=== PATIENT | female | born 1950 | race Caucasian/White ===

== ENCOUNTER 2017-11-21 13:19 | Outpatient (CLI) | payer MEDICARE, BC, SELFPAY ==
[2017-11-21 15:49] LABS: PHA INR Fingerstick 2.6 (0.9-1.1)
== END 2017-11-21 15:52 | disposition home or self-care (01) ==
LOC: ACC 13:21
PROVIDERS: Family Provider Nurse Practitioner Family; PCP Nurse Practitioner Family; Visit Provider Nurse Practitioner Family
DX: Z79.01 Long term (current) use of anticoagulants (principal); Z51.81 Encounter for therapeutic drug level monitoring
CPT/HCPCS: 85610; 99211; G0463

== ENCOUNTER 2017-12-26 15:02 | Outpatient (CLI) | payer MEDICARE, BC, SELFPAY ==
[2017-12-26 16:16] LABS: PHA INR Fingerstick 2.7 (0.9-1.1)
== END 2017-12-26 16:19 | disposition home or self-care (01) ==
LOC: ACC 15:03
PROVIDERS: PCP Nurse Practitioner Family; Visit Provider Nurse Practitioner Family
DX: Z79.01 Long term (current) use of anticoagulants (principal); Z51.81 Encounter for therapeutic drug level monitoring; Z86.718 Personal history of other venous thrombosis and embolism
CPT/HCPCS: 85610; 99211; G0463

== ENCOUNTER 2018-02-13 13:14 | Outpatient (CLI) | payer MEDICARE, BC, SELFPAY ==
[2018-02-13 14:52] LABS: PHA INR Fingerstick 2.2 (0.9-1.1)
== END 2018-02-13 14:58 | disposition home or self-care (01) ==
LOC: ACC 13:15
PROVIDERS: Family Provider Nurse Practitioner Family; PCP Nurse Practitioner Family; Visit Provider Family Medicine
DX: Z79.01 Long term (current) use of anticoagulants (principal); Z51.81 Encounter for therapeutic drug level monitoring; Z86.718 Personal history of other venous thrombosis and embolism
CPT/HCPCS: 85610; 99211; G0463

== ENCOUNTER 2018-04-04 14:57 | Outpatient (CLI) | payer MEDICARE, BC, SELFPAY ==
[2018-04-04 16:05] LABS: PHA INR Fingerstick 1.9 (0.9-1.1)
== END 2018-04-04 16:07 | disposition home or self-care (01) ==
LOC: ACC 14:58
PROVIDERS: PCP Nurse Practitioner Family; Visit Provider Family Medicine
DX: Z79.01 Long term (current) use of anticoagulants (principal); Z51.81 Encounter for therapeutic drug level monitoring; Z86.718 Personal history of other venous thrombosis and embolism
CPT/HCPCS: 85610; 99211; G0463

== ENCOUNTER 2018-05-08 13:06 | Outpatient (CLI) | payer MEDICARE, BC, SELFPAY ==
[2018-05-08 14:48] LABS: PHA INR Fingerstick 1.8 (0.9-1.1)
== END 2018-05-08 15:44 | disposition home or self-care (01) ==
LOC: ACC 13:08
PROVIDERS: Family Provider Nurse Practitioner Family; PCP Nurse Practitioner Family; Visit Provider Family Medicine
DX: Z79.01 Long term (current) use of anticoagulants (principal); Z51.81 Encounter for therapeutic drug level monitoring; Z86.718 Personal history of other venous thrombosis and embolism
CPT/HCPCS: 85610; 99211; G0463

== ENCOUNTER 2018-06-05 13:12 | Outpatient (CLI) | payer MEDICARE, BC, SELFPAY ==
[2018-06-05 14:12] LABS: PHA INR Fingerstick 1.2 (0.9-1.1)
== END 2018-06-05 14:19 | disposition home or self-care (01) ==
LOC: ACC 13:13
PROVIDERS: PCP Family Medicine; Visit Provider Family Medicine
DX: Z79.01 Long term (current) use of anticoagulants (principal); Z86.718 Personal history of other venous thrombosis and embolism
CPT/HCPCS: 85610; 99211; G0463

== ENCOUNTER 2018-07-18 14:04 | Outpatient (CLI) | payer MEDICARE, BC, SELFPAY ==
[2018-07-18 15:51] LABS: PHA INR Fingerstick 3.3 (0.9-1.1)
== END 2018-07-18 15:53 | disposition home or self-care (01) ==
LOC: ACC 14:05
PROVIDERS: PCP Nurse Practitioner Family; Visit Provider Nurse Practitioner Family
DX: Z51.81 Encounter for therapeutic drug level monitoring (principal); Z79.01 Long term (current) use of anticoagulants; Z86.718 Personal history of other venous thrombosis and embolism
CPT/HCPCS: 85610; 99211; G0463

== ENCOUNTER 2018-08-31 12:10 | Outpatient (CLI) | payer MEDICARE, BC, SELFPAY ==
[2018-08-31 13:05] LABS: PHA INR Fingerstick 2.4 (0.9-1.1)
== END 2018-08-31 13:06 | disposition home or self-care (01) ==
PROVIDERS: PCP Nurse Practitioner Family; Visit Provider Nurse Practitioner Family
DX: Z51.81 Encounter for therapeutic drug level monitoring (principal); Z79.01 Long term (current) use of anticoagulants; Z86.718 Personal history of other venous thrombosis and embolism
CPT/HCPCS: 85610; 99211; G0463

== ENCOUNTER → 2018-09-05 12:41 | Outpatient (CLI) | payer MEDICARE, BC, SELFPAY ==
--- NOTE | 2018-09-05 12:46 | US_ITS ---
US Arterial Ankle Brachial Ind History: Decreased pulses, claudication, current smoker ITS.REASON: Skin Changes ORDERING PHYSICIAN: Amber Wolfe DPM PATIENT AGE: 67 years TECHNIQUE: Segmental pressures obtained of both right and left leg. These are compared to brachial blood pressure to yield index at each level sampled including summary NOVA. The data sheets from the procedure are available in PACS FINDINGS Rest study only performed today No prior studies available for comparison. Blood pressures reported are in millimeters mercury. RIGHT LEG NOVA = 1.1. RIGHT LEG TBI=.8 Brachial BP: 139 Thigh BP: 160 Calf BP: 168 Ankle PT: 167 Ankle DP : 161 Digit =117 LEFT LEG NOVA = 1.1 LEFT LEG TBI= .8 Brachial BPD: 147 Thigh BP: 161 Calf BP: 166 Ankle PT:162 Ankle DP: 178 Digit = 111 Pulses and waveforms: Diminished pulses with normal waveforms IMPRESSION: The ABIs as reported above are within normal limits. Waveforms are unremarkable. Pulses are somewhat
--- NOTE | 2018-09-05 13:23 | XR_ITS ---
XR chest 2V HISTORY: ITS.REASON: cough ORDERING PHYSICIAN: Amber Wolfe DPM PATIENT AGE: 67 years COMPARISON: None FINDINGS: The cardiomediastinal silhouette and pulmonary vascularity are within normal limits. The lungs are clear without infiltrates, suspicious nodules, or pleural effusions. No acute bony abnormalities. Mild degenerative changes are present in the mid to upper thoracic spine IMPRESSION: No acute finding
== END ==
PROVIDERS: PCP Nurse Practitioner Family; Visit Provider Podiatrist
DX: R09.89 Other specified symptoms and signs involving the circulatory and respiratory systems (principal); F17.200 Nicotine dependence, unspecified, uncomplicated
CPT/HCPCS: 71046; 93922

== ENCOUNTER → 2018-10-23 13:23 | Outpatient (CLI) | payer MEDICARE, SELFPAY | PROVIDERS: PCP Nurse Practitioner Family; Visit Provider Nurse Practitioner Family | DX: Z51.81 Encounter for therapeutic drug level monitoring (principal); Z79.01 Long term (current) use of anticoagulants; Z86.718 Personal history of other venous thrombosis and embolism | CPT/HCPCS: 85610 ==

== ENCOUNTER 2018-11-28 12:33 | Outpatient (CLI) | payer MEDICARE, SELFPAY ==
[2018-11-28 16:00] LABS: PHA INR Fingerstick 2.4 (0.9-1.1)
== END 2018-11-28 16:05 | disposition home or self-care (01) ==
LOC: ACC 12:34
PROVIDERS: PCP Nurse Practitioner Family; Visit Provider Nurse Practitioner Family
DX: Z51.81 Encounter for therapeutic drug level monitoring (principal); Z79.01 Long term (current) use of anticoagulants; Z86.718 Personal history of other venous thrombosis and embolism
CPT/HCPCS: 85610; 99211; G0463

== ENCOUNTER 2019-01-04 10:30 | Outpatient (RCR) | payer MEDICARE, SELFPAY ==
--- NOTE | 2018-12-21 14:01 | HMH.PTOPEV ---
PT Outpatient Evaluation Rehab PT Outpatient Evaluation Start: 12/21/18 13:49 Freq: Status: Active Protocol: Document 12/21/18 13:49 ALVIN (Rec: 12/21/18 14:00 PHORJARRED [id number]) Electronically Signed By Elio Friend, PT 12/21/18 13:49 Outpatient Therapy Subjective History Subjective History Pt is 68 yowf who presents with right LE edema, stiffness , and tenderness x ~ 6 wks S/P right ankle sprain. Pt reports she was getting out of a chair when she fell and sprained the right ankle. She was seen in the ED with no fxs noted. She also reports she has had edema in tayo LE x 10 yrs or more which has caused her problems over time. She reports tendernes on tayo lower legs, but no pain currently. She reports PMH of HTN, DM-II, HL, anxiety, depression, essential tremors. Chief Complaint Pain Stiff Swelling Weakness Symptom Type Ache Symptoms Relieved By Rest/Positioning Symptoms Aggravated By Standing Physical Activity Walking Prior Functional Limitations None Current Functional Limitations Standing Walking Symptom Description Intermittent Activity Dependent Level of pain today (0-10) 0 Pain scale - at its worst (0-10) 10 Ankle/Foot Eval Gait Observation General Gait Pattern Observation Antalgic Gait Palpation Tenderness right ATF TTP positive PTF TTP negative CF TTP positive ROM Ankle/Foot ROM Limitations Soft Tissue Tightness MMT Ankle Dorsiflexion Strength Grade 4 Good Ankle Plantarflexion Strength Grade 4 Good Foot Eversion Strength Grade 4 Good Foot Inversion Strength Grade 4 Good Outpatient Therapy Assessment Impairments Problems/Impairmments Palpation Tenderness Impaired Range of Motion Impaired Strength Impaired Endurance Impaired Gait Pattern Impaired Walking Impaired Recreational A
== END 2019-01-04 10:35 | disposition home or self-care (01) ==
LOC: PT 10:30
PROVIDERS: Visit Provider Podiatrist
DX: I89.0 Lymphedema, not elsewhere classified (principal); S93.491A Sprain of other ligament of right ankle, initial encounter
CPT/HCPCS: 97110; 97112; 97140; 97163

== ENCOUNTER 2019-01-31 13:20 | Outpatient (CLI) | payer MEDICARE, SELFPAY ==
[2019-01-31 15:12] LABS: PHA INR Fingerstick 1.9 (0.9-1.1)
== END 2019-01-31 15:52 | disposition home or self-care (01) ==
LOC: ACC 13:21
PROVIDERS: PCP Nurse Practitioner Family; Visit Provider Nurse Practitioner Family
DX: Z51.81 Encounter for therapeutic drug level monitoring (principal); Z79.01 Long term (current) use of anticoagulants
CPT/HCPCS: 85610; 99211; G0463

== ENCOUNTER → 2019-02-06 12:09 | Outpatient (CLI) | payer MEDICARE, SELFPAY ==
[2019-02-06 13:20] LABS: PHA INR Fingerstick 2.3 (0.9-1.1)
--- NOTE | 2019-02-06 14:30 | NVE_ITS ---
Venous Exam Indications: 782.3 Edema. IMPRESSIONS 1. There is no evidence of significant Reflux. 2. No evidence of deep or superficial vein thrombosis involving the right lower extremity 3. No evidence of deep or superficial vein thrombosis involving the left lower extremity Complete lower extremity venous duplex evaluation. Doppler flow study including spectral analysis, color and kidd scale imaging. Location: Vascular laboratory. Patient status: Outpatient. CRITICAL FINDINGS - Reported to: Lori - Read back and verified. - 02/06/19 - 1500 - None Tables: Venous flow and imaging: + +-------+ + Location Overall Flow properties + +-------+ + Right common femoral Patent Normal phasicity; spontaneous; normal augmentation; compressible + +-------+ + Right saphenofemoral junction Patent Compressible + +-------+ + Right profunda femoral Patent Compressible + +-------+ + Right femoral Patent Normal phasicity; spontaneous; normal augmentation; compressible; no reflux + +-------+ + Right greater saphenous Patent Normal phasicity; spontaneous; normal augmentation; compressible + +-------+ + Right popliteal Patent Normal phasicity; spontaneous; normal augmentation; compressible + +-------+ + Right posterior tibial Patent Compressible + +-------+ + Right peroneal Patent Compressible + +-------+ + Right gastrocnemius Patent Compressible + +-------+ + Right soleal Patent Compressible + +-------+ + Left common femoral Patent Normal phasicity; spontaneous; normal augmentation; compressible + +-------+ + Left saphenofemoral junction Patent Compressible + +-------+ + Left profunda femoral Patent Compressible + +-------+ + Left femoral Patent Normal phasicity; spontaneous; normal augmentation; compressible + +-------+ + Left greater saphenous Patent Normal phasicity; spontaneous; normal augmentation; compressible +-------
== END ==
PROVIDERS: PCP Nurse Practitioner Family; Visit Provider Nurse Practitioner Family
DX: Z51.81 Encounter for therapeutic drug level monitoring (principal); Z79.01 Long term (current) use of anticoagulants; R60.1 Generalized edema
CPT/HCPCS: 85610; 93970; 99211; G0463

== ENCOUNTER 2019-03-06 12:52 | Outpatient (CLI) | payer MEDICARE, SELFPAY ==
[2019-03-06 15:19] LABS: PHA INR Fingerstick 1.7 (0.9-1.1)
== END 2019-03-06 15:21 | disposition home or self-care (01) ==
PROVIDERS: PCP Nurse Practitioner Family; Visit Provider Nurse Practitioner Family
DX: Z51.81 Encounter for therapeutic drug level monitoring (principal); Z79.01 Long term (current) use of anticoagulants; Z86.718 Personal history of other venous thrombosis and embolism
CPT/HCPCS: 85610; 99211; G0463

== ENCOUNTER 2019-03-27 13:05 | Outpatient (CLI) | payer MEDICARE, SELFPAY | END 2019-03-27 14:37 | disposition home or self-care (01) | LOC: ACC 13:06 | PROVIDERS: PCP Nurse Practitioner Family; Visit Provider Nurse Practitioner Family | DX: Z51.81 Encounter for therapeutic drug level monitoring (principal); Z79.01 Long term (current) use of anticoagulants; Z86.718 Personal history of other venous thrombosis and embolism | CPT/HCPCS: 85610; 99211; G0463 ==

== ENCOUNTER 2019-04-24 13:03 | Outpatient (CLI) | payer MEDICARE, SELFPAY ==
[2019-04-24 13:37] LABS: PHA INR Fingerstick 2.2 (0.9-1.1)
== END 2019-04-24 13:39 | disposition home or self-care (01) ==
LOC: ACC 13:04
PROVIDERS: PCP Nurse Practitioner Family; Visit Provider Nurse Practitioner Family
DX: Z51.81 Encounter for therapeutic drug level monitoring (principal); Z79.01 Long term (current) use of anticoagulants
CPT/HCPCS: 85610; 99211; G0463

== ENCOUNTER 2019-06-06 13:03 | Outpatient (CLI) | payer MEDICARE, SELFPAY ==
[2019-06-06 16:30] LABS: PHA INR Fingerstick 2.9 (0.9-1.1)
== END 2019-06-06 16:37 | disposition home or self-care (01) ==
LOC: ACC 13:04
PROVIDERS: PCP Nurse Practitioner Family; Visit Provider Nurse Practitioner Family
DX: Z51.81 Encounter for therapeutic drug level monitoring (principal); Z79.01 Long term (current) use of anticoagulants; Z86.718 Personal history of other venous thrombosis and embolism
CPT/HCPCS: 85610; 99211; G0463

== ENCOUNTER → 2019-08-20 13:30 | Outpatient (CLI) | payer MEDICARE, SELFPAY ==
--- NOTE | 2019-08-20 13:38 | XR_ITS ---
PROCEDURE: XR KNEE RT 3V CLINICAL INDICATION: RT KNEE PAIN COMPARISON: No exams were available for comparison FINDINGS: No fracture or dislocation. No lytic or blastic change. There is normal mineralization. There are mild osteoarthritic changes involving all 3 compartments. Other findings:None. IMPRESSION: Mild osteoarthritis Dictated by: Terry Moreno MD 08/20/2019 15:15 Electronically signed by Terry Moreno MD in [place] 08/20/2019 15:15
== END ==
PROVIDERS: PCP Nurse Practitioner Family; Visit Provider Nurse Practitioner Family
DX: M25.561 Pain in right knee (principal)
CPT/HCPCS: 73562

== ENCOUNTER → 2019-09-25 08:32 | Outpatient (CLI) | payer MEDICARE, SELFPAY ==
[2019-09-25 10:52] LABS: Glucose,Fasting 111 mg/dL (60-105)
== END ==
PROVIDERS: Visit Provider Nurse Practitioner Family
DX: E11.40 Type 2 diabetes mellitus with diabetic neuropathy, unspecified (principal)
CPT/HCPCS: 36415; 82947

== ENCOUNTER 2019-10-30 14:27 | Outpatient (CLI) | payer MEDICARE, SELFPAY ==
[2019-10-30 15:34] LABS: PHA INR Fingerstick 3.3 (0.9-1.1)
--- NOTE | 2020-02-01 10:38 | HMH.PHAINT ---
ACC-PATIENT CURRENTLY TAKING WARFARIN 9 MG ON TUE/TUE/TUE/TUE/TUE; 8 MG ON TUE/TUE.
--- NOTE | 2020-02-05 09:46 | HMH.PHAINT ---
ACC-PATIENT INR WAS 2.0 ON 02/04/20. CALLED IN SCRIPT FOR WARFARIN 3 MG, TAKE 3 TABLETS ON TUE/TUE/TUE/LEWIS/SAT, #60 W/ 2 RF TO [facility]INIC PHARMACY. SHE IS ALSO TAKING WARFARIN 4 MG, TAKE 2 TABLETS BY MOUTH ON MON/FRI.
--- NOTE | 2020-04-03 14:52 | HMH.PHAINT ---
ACC-CALLED IN REFILL ON 04/03/20 FOR WARFARIN 3 MG - 9 MG DAILY OR DIRECTED AND WARFARIN 2 MG DAILY OR DIRECTED.
== END 2019-10-30 15:39 | disposition home or self-care (01) ==
LOC: ACC 14:28
PROVIDERS: PCP Nurse Practitioner Family; Visit Provider Nurse Practitioner Family
DX: Z51.81 Encounter for therapeutic drug level monitoring (principal); Z79.01 Long term (current) use of anticoagulants
CPT/HCPCS: 85610; 99211; G0463

== ENCOUNTER → 2020-02-12 07:37 | Outpatient (CLI) | payer MEDICARE, SELFPAY ==
--- NOTE | 2020-02-12 07:44 | US_ITS ---
PROCEDURE: US LIVER CLINICAL INDICATION: ELEVATED ALKALINE PHOSPHATASE COMPARISON: No exams were available for comparison FINDINGS: PANCREAS: Unremarkable. No obvious mass or abnormal fluid collection. No ductal dilatation LIVER: No focal liver lesions demonstrated. Homogeneous echogenicity. No intrahepatic biliary ductal dilatation evident. There is appropriate direction of blood flow within a non dilated portal vein. There is a small nonspecific hyperechoic focus in the liver superiorly only well demonstrated on the transverse image RIGHT KIDNEY: Unremarkable. Normal size and echogenicity. No hydronephrosis. There is mild cortical thinning of the right kidney GALLBLADDER: Prior cholecystectomy. Common bile duct is normal at 5 mm. IMPRESSION: Prior cholecystectomy with other nonspecific nonacute findings as described above. Nonspecific small hyperechoic focus of the liver of questionable clinical significance. Liver is otherwise unremarkable. Dictated by: Terry Moreno MD 02/12/2020 15:31 Electronically signed by Terry Moreon MD in [place] 02/12/2020 15:31
== END ==
PROVIDERS: PCP Nurse Practitioner Family; Visit Provider Nurse Practitioner Family
DX: R74.8 Abnormal levels of other serum enzymes (principal)
CPT/HCPCS: 76705

== ENCOUNTER → 2020-02-27 08:38 | Outpatient (CLI) | payer MEDICARE, SELFPAY ==
--- NOTE | 2020-02-27 09:05 | CT_ITS ---
PROCEDURE: CT ABDOMEN W CON CLINICAL HISTORY: ELEVATED ALKALINE PHOSPHATASE LEVEL,ABN LIVER ULTRASOUND Elevated liver function test, right upper quadrant pain, liver lesion noted on ultrasound COMPARISON: US LIVER from 02/12/2020 TECHNIQUE: 75 mL Optiray 350 IV with dynamic imaging Axial images obtained with sagittal and coronal reformats. All CT scans at the facility use one or more dose reduction, viz: automated exposure control, ma/kV adjustment per patient size (including targeted exams where dose is matched to indication, i.e. head), or iterative reconstruction technique. FINDINGS: Fibrotic changes are present in the lung bases. There is calcified granuloma in the right lower lobe and within the lingula. There are coronary artery calcifications noted. There are post cholecystectomy changes. There is a small calcific density in the right lobe of the liver anteriorly. No focal liver lesion is evident. The spleen, adrenal glands, and pancreas have an unremarkable appearance. There is some mild biliary ectasia which may be related to the physiologic changes after cholecystectomy. No renal or ureteral calculi. No hydronephrosis or renal mass. There is some mild cortical thinning of the right kidney. The bowel gas pattern is nonspecific with fluid-filled loops of large and small bowel. There is nonspecific stranding of the perinephric renal fat. Surgical clips are present in the right lower quadrant. There is mild lumbar scoliosis convex right IMPRESSION: 1. No acute abdominal findings. 2. No suspicious liver lesions evident. The small area of increased echogenicity on the ultrasound may be related to a small calcified granuloma within the liver Dictated by: Terry Moreno MD 02/28/2020 15:20 Electronically signed by Terry Moreno MD in [place] 02/28/2020 15:20
[2020-02-27 09:07] LABS: Blood Urea Nitrogen 27 mg/dl (7-17); Estimated Glomerular Filt Rate 62 ml/min (>60); GFR (African American) 75 ML/MIN (>60)
== END ==
PROVIDERS: PCP Nurse Practitioner Family; Visit Provider Nurse Practitioner Family
DX: R93.2 Abnormal findings on diagnostic imaging of liver and biliary tract (principal); R74.8 Abnormal levels of other serum enzymes
CPT/HCPCS: 36415; 74160; 82565; 84520; Q9967

== ENCOUNTER → 2020-05-08 09:41 | Outpatient (CLI) | payer MEDICARE, SELFPAY ==
[2020-05-08 11:29] LABS: Coronavirus 19 IgG Antibody Negative (Negative); Coronavirus 19 IgM Antibody Negative (Negative)
== END ==
PROVIDERS: Visit Provider Internal Medicine Gastroenterology
DX: Z01.818 Encounter for other preprocedural examination (principal); Z12.11 Encounter for screening for malignant neoplasm of colon
CPT/HCPCS: 36415; 86328

== ENCOUNTER 2020-05-09 09:11 | Day surgery (SDC) | payer MEDICARE, SELFPAY ==
[2020-05-01 11:54] VITALS: BMI 30.2
[2020-05-09] VITALS (8 sets, daily range): BP systolic 94–125; BP diastolic 59–72; PULSE 82–92; RESP 16–18; TEMP 36.2; O2SAT 97–99
[2020-05-09 10:27] LABS: POC Glucose,Bedside 126 (70-110)
--- NOTE | 2020-05-09 11:19 | P.PN_ITS ---
[facility] Anesthesia Checklist - Patient Identification Patient Identification: Arm Band - Structural Data Admitted From: Home Planned Operative Procedure/s: colonoscopy Consent for Planned Operative Procedure(s) Verified: Yes Verified Documents: Surgical Consent, History and Physical - NPO Status Verified Time NPO: 00:00 - Additional verifications Anesthesia Reactions: No - Airway Assessment C-Spine Mobility Assessed: Yes (mp2) TMJ Mobility Assessed: Yes Dentition: Poor Dentition - Neurological Assessment Level of Consciousness: Awake, Alert - Anesthesia Plan Anesthesia Risk discussed: Yes Anesthesia Plan: Verified ASA Class: III Anesthesia Type: MAC [facility] History I have reviewed the patient's past medical history: Yes Medical History: Reports:: Anxiety, Atrial Fibrillation, Deep Vein Thrombosis, Depression, Diabetes Mellitus Type 2, Gastroesophageal Reflux Disease(GERD), Hyperlipidemia, Hypertension, Osteoporosis Denies:: Cancer, Diabetes Mellitus Type 1, Internal Pacemaker, MRSA, Seizures *Have you ever received a pneumonia vaccine?: Yes *Have you received a flu vaccine this season?: No Other Medical History: Reports: Osteoporosis, Other (tacchycardia, central tremors) Anesthesia experience/problems:: nac Laterality Cases: Left: Other Other Surgeries: Yes: Appendectomy, Cholecystectomy, Tubal Ligation, Other. No: Pacemaker Amputation: No Fractures: No - *Social History Last grade of school completed: Some college Smoking Status: Current every day smoker Tobacco Type: cigarettes # Packs/Day (cigarettes): 2 Alcohol Intake: current Alcohol Intake Frequency:: holidays/special occasions only Substance Use Type: denies use *Occupational Status:: retired Housing: house Household Members: spouse, family *Travel in the last 8 weeks: None - Psychiatric History Pschychiatric History:: Reports:: Anxiety, Depression Family Hx:: Cancer
--- NOTE | 2020-05-09 11:46 | P.PCN_ITS ---
[facility] Procedure Note Procedure Note:: Colonoscopy Procedure Report: Colonoscopy with cold snare polypectomy and cold biopsies Endoscopist: Mikael Camara II, MD Referring physician: NAVARRO Cristina Date of Procedure: May 09, 2020 Equipment: Olympus 180 variable stiffness pediatric colonoscope Sedation: MAC sedation Indication: Mrs. Stacy is a 69-year-old female who is here for follow-up screening/surveillance colonoscopy. She does state that she was having some chronic diarrhea with associated crampy discomfort up until 2 or 3 weeks ago. The patient does state that this has resolved. She reports no rectal bleeding, abdominal pain or weight loss. Her first cousin had colon cancer but she reports no other family history of colitis, Crohn's disease or colon cancer. Her last colonoscopy was at age 53 (16 years ago) and was normal. Procedure: Prior to the procedure, a history and physical exam was performed, and patient's medications and allergies were reviewed. The risks, benefits and alternatives of the sedation and procedure were discussed with the patient. All questions were answered and informed consent was obtained. The patient was brought to the procedure room. Patient identification and proposed procedure were verified by the physician and the nurse. The patient was placed in a left lateral decubitus position and the scope was passed under direct vision. Throughout the procedure, the patient's blood pressure, pulse, and oxygen saturations were monitored continuously. The colonoscopy was accomplished without difficulty. The patient tolerated the procedure well. Findings: On digital rectal examination there was normal rectal tone. There were no external hemorrhoids. The colonoscope was introduced through the anal canal to the rectum and advanced to the cecum. The ileocecal valve and appendiceal orifice were identified. The scope was advanced a short distance into the ileum which appeared grossly normal. The scope was then withdrawn into the colon. There were 5 diminutive polyps (cecum x2 (3 and 4 mm), sigmoid x1 (4 mm) and rectosigmoid x2 (3 and 4 mm)) which were removed via cold snare polypectomy. Random biopsies were taken from the right colon to rule out microscopic colitis with cold biopsy forceps. The remainder of the colon was normal. There were no other mucosal abnormalities identified. Upon retroflexion within the rectum there were grade 1 internal hemorrhoids.The preparation was excellent throughout with Pinson Preparation Score of 9. The cecal time was 12 minutes. Impression: 1. Diminutive colonic polyps x5 2. Grade 1 internal hemorrhoids Plan: I will follow-up the polyp histology and recommend repeat screening/surveillance colonoscopy again in 5 to 7 years based upon the pathology. I would encourage bulk fiber supplementation. I will follow-up the biopsies to rule out collagenous or microscopic colitis.
[2020-05-09 13:05] LABS: POC Glucose,Bedside 113 (70-110)
== END 2020-05-09 12:50 | disposition home or self-care (01) ==
LOC: OUTP 09:12
PROVIDERS: PCP Nurse Practitioner Family; Visit Provider Internal Medicine Gastroenterology
PROC: 0DJD8ZZ Inspection of Lower Intestinal Tract, Via Natural or Artificial Opening Endoscopic (ICD-10-PCS; CPT 45378; principal; 2020-05-09 10:30)
DX: Z12.11 Encounter for screening for malignant neoplasm of colon (principal); K63.5 Polyp of colon; K64.0 First degree hemorrhoids; F41.9 Anxiety disorder, unspecified; I48.91 Unspecified atrial fibrillation; I73.9 Peripheral vascular disease, unspecified; F32.9 Major depressive disorder, single episode, unspecified; E11.9 Type 2 diabetes mellitus without complications; K21.9 Gastro-esophageal reflux disease without esophagitis; E78.5 Hyperlipidemia, unspecified; I10 Essential (primary) hypertension; M81.0 Age-related osteoporosis without current pathological fracture
CPT/HCPCS: 45385; 82962; 88305

== ENCOUNTER 2020-06-17 17:03 | Emergency (ER) | payer MEDICARE, SELFPAY ==
--- NOTE | 2020-06-17 17:11 | XR_ITS ---
PROCEDURE: XR WRIST LT MIN 3V CLINICAL INDICATION: ulnar pain after fall COMPARISON: No exams were available for comparison FINDINGS: No fracture or dislocation. No lytic or blastic change. There is normal mineralization. The joint spaces are well-preserved. No significant degenerative/arthritic changes. No erosive changes evident. Other findings:None. IMPRESSION: No acute findings. Dictated by: Terry Moreno MD 06/17/2020 22:02 Terry Moreno MD in [place] 06/17/2020 22:02
[2020-06-17 17:12] VITALS: BP 147/85; PULSE 92; RESP 18; TEMP 36.8; O2SAT 99; BMI 32.8
--- NOTE | 2020-06-17 17:19 | PC.NURSE ---
Pt to rad.
--- NOTE | 2020-06-17 17:43 | HMH.EDGENADL ---
ED Disposition Clinical Impression: Left wrist sprain Qualifiers: Encounter type: initial encounter Qualified Code(s): S63.502A - Unspecified sprain of left wrist, initial encounter Fall Qualifiers: Encounter type: initial encounter Qualified Code(s): W19.XXXA - Unspecified fall, initial encounter Disposition: Home, Self-Care Condition on Discharge: Good Instructions: DI for Wrist Sprain Referrals: Gwen Miller APRN [Primary Care Provider] - 3 days - Critical Care Critical Care Time: No Attestation: On 06/17/20, the high probability of a clinically significant, sudden or life threatening deterioration of the following system(s) required my full and direct attention, intervention and personal management. The time I documented below is in addition to time spent performing reported procedures but includes the following listed in this critical care notation. Medical Decision Making - Medical Records Medical records reviewed: Yes: I reviewed the patient's medical records. - Papi Inquiry Pt receiving controlled substance: No Vital Signs: 06/17/20 17:12 Temperature 98.2 F Temperature Source Oral Pulse Rate [Right Brachial] 92 H Respiratory Rate 18 Blood Pressure [Right Arm] 147/85 H Blood Pressure Mean [Right Arm] 105 Blood Pressure Source [Right Arm] Automatic Cuff Blood Pressure Position [Right Arm] Sitting 02 Sat by Pulse Oximetry 99 Oxygen Delivery Method Room Air Orders (Tests/Meds): ORDERS Category Date Time Status Wrist XR left minimum 3 views [XR wrist LT min 3V] Stat Exams 06/17/20 17:11 Taken - Radiology Data #1 Image(s): Wrist Image Reviewed: Yes I reviewed the patient's radiology image Preliminary Findings: No Fracture Seen Medical Decision Narrative: Patient with mechanical fall while trying to open her window. She did not hit her head and cervical spine is cleared via Nexus criteria. Left wrist x-ray with no acute fracture or dislocation. Recommended conservative therapy at home and discharged home. General Adult HPI - General Chief complaint: PAIN Stated complaint: AO 0901@1300 fell injured l wRist Time Seen by Provider: 06/17/20 17:13 Mode of Arrival: Ambulatory Limitations: No Limitations Description of Symptoms (Recalled from ER Triage Doc. by RN): Left wrist pain after falling - History of Present Illness HPI narrative: This is a 69-year-old [id number] female who presents to the emergency department for left ulnar-sided wrist pain after a fall that occurred just a few hours prior to arrival. Patient was trying to open a window in her house when she fell to the left catching herself on her left arm. She did not hit her head and denies any neck or back pain. No other extremity injury. Pain is worse with movement, better with rest. She applied a brace which is helping with the pain. - Related Data Home Medications Medication Instructions Recorded Confirmed buspirone 15 mg tablet 15 mg PO BID 03/06/18 05/09/20 metformin 850 mg tablet 850 mg PO BID 03/06/18 05/09/20 venlafaxine 100 mg tablet 100 mg PO BID 03/06/18 05/09/20 simvastatin 20 mg tablet 20 mg PO QPM 03/07/18 05/09/20 gabapentin 100 mg capsule 400 mg PO TID cap 12/11/18 05/09/20 warfarin 2 mg tablet 8 mg PO DAILY tab 12/11/18 05/09/20 ascorbate calcium (vitamin C) 500 500 mg PO DAILY 03/06/19 05/09/20 mg tablet clonazepam 0.5 mg tablet 0.5 mg PO QHS PRN tab 03/06/19 05/09/20 omega-3 fatty acids 1,000 mg 1,000 mg PO DAILY 03/06/19 05/09/20 capsule primidone 50 mg tablet 250 mg PO BID tab 03/06/19 05/09/20 Insulin Glargine,Hum.rec.anlog 100 unit SQ HS 05/01/20 05/09/20 [Lantus] Insulin Lispro [Humalog] 100 unit SQ DAILY 05/01/20 05/09/20 Amlodipine Besylate [Amlodipine 10 mg PO DAILY 05/09/20 05/09/20 10mg Tab] Allergies Allergy/AdvReac Type Severity Reaction Status Date / Time Quinolones Allergy Unknown Verified 06/17/20 17:19 latex Allergy Verified
[2020-06-17 17:57] VITALS: BP 138/86; PULSE 74; RESP 16; TEMP 36.8; O2SAT 96
== END 2020-06-17 17:59 | disposition home or self-care (01) ==
PROVIDERS: Emergency Provider Emergency Medicine; PCP Nurse Practitioner Family
DX: S63.502A Unspecified sprain of left wrist, initial encounter (principal); W01.0XXA Fall on same level from slipping, tripping and stumbling without subsequent striking against object, initial encounter; Y92.019 Unspecified place in single-family (private) house as the place of occurrence of the external cause; E11.9 Type 2 diabetes mellitus without complications; F41.8 Other specified anxiety disorders; I10 Essential (primary) hypertension; E78.5 Hyperlipidemia, unspecified; I48.20 Chronic atrial fibrillation, unspecified; K21.9 Gastro-esophageal reflux disease without esophagitis; F17.210 Nicotine dependence, cigarettes, uncomplicated; Z90.49 Acquired absence of other specified parts of digestive tract; Z79.01 Long term (current) use of anticoagulants; Z91.040 Latex allergy status
CPT/HCPCS: 73110; 99281

== ENCOUNTER 2020-08-01 12:01 | Outpatient (CLI) | payer MEDICARE, SELFPAY ==
[2020-08-01 14:01] LABS: PHA INR Fingerstick 2.3 (0.9-1.1)
== END 2020-08-01 14:30 | disposition home or self-care (01) ==
LOC: ACC 12:03
PROVIDERS: PCP Nurse Practitioner Family; Visit Provider Nurse Practitioner Family
DX: Z51.81 Encounter for therapeutic drug level monitoring (principal); Z79.01 Long term (current) use of anticoagulants
CPT/HCPCS: 85610; 99211; G0463

== ENCOUNTER → 2020-09-23 13:32 | Outpatient (CLI) | payer MEDICARE, SELFPAY ==
--- NOTE | 2020-09-23 13:37 | XR_ITS ---
PROCEDURE: XR KNEE RT 4V CLINICAL INDICATION: right knee pain COMPARISON: CR XR KNEE RT 3V from 08/20/2019 FINDINGS: There are mild tricompartmental osteoarthritic changes greater at the medial compartment and patellofemoral joint. Other findings:None. IMPRESSION: No change in the mild tricompartmental osteoarthritic changes Dictated by: Terry Moreno MD 09/23/2020 16:57 Terry Moreno MD in [place] 09/23/2020 16:57
--- NOTE | 2020-09-23 13:37 | XR_ITS ---
PROCEDURE: XR HIP RT 2-3V W/PELVIS CLINICAL INDICATION: right hip pain Right hip pain COMPARISON: CR PEL1V XR pelvis 1-2V from 11/09/2018 FINDINGS: No fracture or dislocation. There is minimal osteoarthritic change of the right hip. Calcific density is present in the right pelvic region consistent with phleboliths. IMPRESSION: Minimal osteoarthritic change of the right hip Dictated by: Terry Moreno MD 09/23/2020 16:56 Terry Moreno MD in [place] 09/23/2020 16:56
== END ==
PROVIDERS: PCP Nurse Practitioner Family; Visit Provider Orthopaedic Surgery
DX: M25.561 Pain in right knee (principal); M25.551 Pain in right hip
CPT/HCPCS: 73502; 73564

== ENCOUNTER 2020-10-31 11:16 | Outpatient (CLI) | payer MEDICARE, SELFPAY ==
[2020-10-31 15:58] LABS: PHA INR Fingerstick 1.5 (0.9-1.1)
== END 2020-10-31 16:04 | disposition home or self-care (01) ==
LOC: ACC 11:18
PROVIDERS: PCP Nurse Practitioner Family; Visit Provider Nurse Practitioner Family
DX: Z51.81 Encounter for therapeutic drug level monitoring (principal); Z79.01 Long term (current) use of anticoagulants
CPT/HCPCS: 85610; 99211; G0463

== ENCOUNTER 2021-01-29 11:01 | Outpatient (CLI) | payer MEDICARE, SELFPAY ==
[2021-01-29 13:05] LABS: PHA INR Fingerstick 2.7 (0.9-1.1)
== END 2021-01-29 14:44 | disposition home or self-care (01) ==
LOC: ACC 11:03
PROVIDERS: PCP Nurse Practitioner Family; Visit Provider Nurse Practitioner Family
DX: Z51.81 Encounter for therapeutic drug level monitoring (principal); Z79.01 Long term (current) use of anticoagulants
CPT/HCPCS: 85610; 99211; G0463

== ENCOUNTER 2021-04-30 10:39 | Outpatient (CLI) | payer MEDICARE, SELFPAY ==
[2021-04-30 11:47] LABS: INR 4.58 (0.9-1.1); Prothrombin Time 48.3 seconds (10.1-12.5)
[2021-04-30 13:09] LABS: PHA INR Fingerstick 5.4 (0.9-1.1)
== END 2021-04-30 13:11 | disposition home or self-care (01) ==
PROVIDERS: PCP Nurse Practitioner Family; Visit Provider Nurse Practitioner Family
DX: Z51.81 Encounter for therapeutic drug level monitoring (principal); Z79.01 Long term (current) use of anticoagulants
CPT/HCPCS: 36415; 85610; 99211; G0463

== ENCOUNTER → 2021-05-20 09:26 | Outpatient (CLI) | payer MEDICARE, SELFPAY ==
--- NOTE | 2021-05-20 09:28 | US_ITS ---
APPROVED REPORT Exam Type: Lower Extremity Segmental Pressures Supervisor Drapery Hanging: Yisel Lopez RVT Indications Claudication: Bilaterally Edema PAD Current Smoker SKIN COLOR CHANGES,CLAUSICATION Risk Factors Hypertension Hyperlipidemia Diabetes Current Smoker Pressures/Indices Right Indices Left Indices Brachial 133.00 mmHg Brachial 121.00 mmHg Low Thigh 120.00 mmHg 0.90 Low Thigh 146.00 mmHg 1.10 Calf 121.00 mmHg 0.91 Calf 145.00 mmHg 1.09 Ankle(PT) 141.00 mmHg 1.06 Ankle(PT) 145.00 mmHg 1.09 Ankle(DP) 150.00 mmHg 1.13 Ankle(DP) 141.00 mmHg 1.06 Digit 101.00 mmHg 0.76 Digit 112.00 mmHg 0.84 Findings RT NOVA:1.13 LT NOVA:1.09 RT TBI:0.76 LT TBI:0.84 DECREASED PULSES BILATERAL DECREASED WAVEFORMS BILATERAL Conclusion RT NOVA:1.13 LT NOVA:1.09 RT TBI:0.76 LT TBI:0.84 DECREASED PULSES BILATERAL DECREASED WAVEFORMS BILATERAL Electronically signed by : Terry Moreno MD 05/20/2021 16:19:06
== END ==
LOC: RT 09:27
PROVIDERS: PCP Nurse Practitioner Family; Visit Provider Nurse Practitioner Family
DX: I70.213 Atherosclerosis of native arteries of extremities with intermittent claudication, bilateral legs (principal)
CPT/HCPCS: 93923

== ENCOUNTER → 2021-05-21 11:52 | Outpatient (CLI) | payer MEDICARE, SELFPAY ==
[2021-05-21 13:43] LABS: Thyroid Stimulating Hormone 1.61 uIU/mL (0.465-4.68)
[2021-05-21 15:53] LABS: Vitamin B12 384 pg/mL (239-931)
[2021-05-21 16:05] LABS: Folate 8.22 ng/mL
== END ==
PROVIDERS: Specialist; PCP Nurse Practitioner Family; Visit Provider Nurse Practitioner Family
DX: E78.5 Hyperlipidemia, unspecified (principal)
CPT/HCPCS: 82607; 82746; 84443

== ENCOUNTER 2021-06-04 11:51 | Outpatient (CLI) | payer MEDICARE, SELFPAY ==
[2021-06-04 13:00] LABS: Prothrombin Time 37.1 seconds (10.1-12.5)
[2021-06-04 13:03] LABS: INR 3.45 (0.9-1.1)
[2021-06-04 13:52] LABS: Blood Urea Nitrogen 26 mg/dl (7-17); Estimated Glomerular Filt Rate 49 ml/min (>60); GFR (African American) 59 ML/MIN (>60)
== END 2021-06-04 14:15 | disposition home or self-care (01) ==
LOC: ACC 11:54
PROVIDERS: Internal Medicine Cardiovascular Disease; PCP Nurse Practitioner Family; Visit Provider Nurse Practitioner Family
DX: E78.2 Mixed hyperlipidemia (principal); F17.200 Nicotine dependence, unspecified, uncomplicated; I10 Essential (primary) hypertension; I73.9 Peripheral vascular disease, unspecified; L81.9 Disorder of pigmentation, unspecified; M79.604 Pain in right leg; M79.605 Pain in left leg; R60.9 Edema, unspecified; Z79.01 Long term (current) use of anticoagulants; Z86.718 Personal history of other venous thrombosis and embolism; Z51.81 Encounter for therapeutic drug level monitoring
CPT/HCPCS: 36415; 82565; 84520; 85610; 99211; G0463

== ENCOUNTER → 2021-06-15 12:43 | Outpatient (CLI) | payer MEDICARE, SELFPAY ==
--- NOTE | 2021-06-15 13:30 | CT_ITS ---
Procedure: CT ANGIO ABDOMEN/FEMORAL CLINICAL HISTORY: claudication COMPARISON: CT CT ABDOMEN W CON from 02/27/2020 TECHNIQUE: IV Contrast: 100ml Isovue 370 Axial images obtained with sagittal and coronal reformats. All CT scans at the facility use one or more dose reduction, viz: automated exposure control, ma/kV adjustment per patient size (including targeted exams where dose is matched to indication, i.e. head), or iterative reconstruction technique. FINDINGS: Aorta: Scattered atheromatous changes are present involving the aorta. The celiac and SMA have an unremarkable appearance. SANIA is patent. No renal artery stenosis is evident. There 2 left renal arteries with a small artery anterior. The smaller artery rises more cephalad than the larger renal artery and supplies the lower pole on the left. No aortic stenosis apparent. There is a small saccular aneurysm projecting off of the distal aspect of the aorta. The small saccular component measures approximately 4 mm in with and 9 mm cephalad caudad. The diameter of the aorta at the level of the small saccular aneurysm is 1.5 cm. Iliacs: Atheromatous changes are present. No significant stenosis apparent on either side. The internal iliacs are patent. Right femoral runoff: Minimal amount of plaque at the right common femoral artery. The right femoral artery is unremarkable. Small amount of eccentric plaque is present in the popliteal with proximally 20 percent stenosis. The major from off vessel to the right ankle is the peroneal artery. There is a small anterior tibial artery. Posterior tibial artery is not identified on either side and may be congenitally absent. The peroneal artery gives rise to a small dorsalis pedis. The anterior tib is patent to the ankle but is very small. Left femoral runoff: Eccentric calcific plaque is present at the proximal aspect of the left common femoral artery with 25-30 percent stenosis. The left femoral artery has an unremarkable appearance given rise to the popliteal which has an unremarkable appearance. There is a prominent left peroneal artery with absent posterior tibial artery. There is a small left anterior tibial artery which is patent to the ankle. The peroneal artery continues to the ankle giving rise to a small dorsalis pedis. Stable bilateral adrenal enlargement. There are surgical clips in the right pericolic gutter. Bowel gas pattern is nonspecific. Prior ORIF of the left ankle. Degenerative changes lumbar spine. Lumbar scoliosis convex right. IMPRESSION: 1. Small saccular aneurysm involving the distal abdominal aorta on the left 2. No significant stenosis of the iliacs, femorals, or popliteal arteries. 3. Absent posterior tibial arteries bilaterally with prominent peroneal artery giving rise to the dorsalis pedis on both sides. This is associated with small anterior tibial arteries bilaterally. Dictated by: Terry Moreno MD 06/15/2021 15:03 Terry Moreno MD in [facility] 06/15/2021 15:03
[2021-06-15 13:39] LABS: Blood Urea Nitrogen 14 mg/dl (7-17); Estimated Glomerular Filt Rate 71 ml/min (>60); GFR (African American) 86 ML/MIN (>60)
== END ==
LOC: RAD 12:43
PROVIDERS: Urology; PCP Nurse Practitioner Family; Visit Provider Internal Medicine Cardiovascular Disease
DX: M79.605 Pain in left leg; M79.604 Pain in right leg; I73.9 Peripheral vascular disease, unspecified; E78.5 Hyperlipidemia, unspecified; R60.9 Edema, unspecified; F17.200 Nicotine dependence, unspecified, uncomplicated; I10 Essential (primary) hypertension; L81.9 Disorder of pigmentation, unspecified; Z79.01 Long term (current) use of anticoagulants; Z86.718 Personal history of other venous thrombosis and embolism
CPT/HCPCS: 36415; 75635; 82565; 84520; Q9967

== ENCOUNTER → 2021-06-18 15:00 | Outpatient (CLI) | payer MEDICARE, SELFPAY ==
--- NOTE | 2021-06-18 15:01 | MR_ITS ---
PROCEDURE: MR HEAD/BRAIN WO CON CLINICAL INDICATION: Tremor, falls COMPARISON: No exams were available for comparison TECHNIQUE: Routine multiplanar multi echo sequences are performed without gadolinium enhancement. FINDINGS: No midline shift, mass effect, intracranial hemorrhage, or hydrocephalus. The cerebellopontine angles, cerebellum, and mid brain have an unremarkable appearance. There is generalized atrophy with scattered periventricular and basal ganglia T2 white matter hyperintensities. There is an old small lacunar infarction in the right putamen anteriorly with other nonspecific T2 hyperintensities within the basal ganglia on both sides suggesting ischemic gliotic changes or old small lacunar infarctions. No evidence of acute infarction. The hippocampal gyri have an unremarkable appearance in the temporal horns are symmetric. The pituitary shows a partial empty sella as a normal variant. The optic chiasm, corpus callosum, and craniocervical junction have an unremarkable appearance. There is mild mucosal thickening of the right maxillary sinus. The mastoid sinuses have an unremarkable appearance. No sinus air-fluid level. Unremarkable appearing orbits. IMPRESSION: 1. No acute intracranial findings. 2. Atrophy with chronic periventricular and basal ganglia ischemic gliotic changes with no evidence of acute infarction. Dictated by: Terry Moreno MD 06/23/2021 09:52 Terry Moreno MD in [place] 06/23/2021 09:52
== END ==
LOC: RAD 15:01
PROVIDERS: PCP Nurse Practitioner Family; Visit Provider Specialist
DX: R53.1 Weakness (principal); R25.1 Tremor, unspecified; Z51.81 Encounter for therapeutic drug level monitoring; Z79.01 Long term (current) use of anticoagulants; W19.XXXA Unspecified fall, initial encounter
CPT/HCPCS: 70551; 85610; 99211; G0463

== ENCOUNTER 2021-07-02 12:36 | Outpatient (CLI) | payer MEDICARE, SELFPAY ==
[2021-07-02 16:17] LABS: PHA INR Fingerstick 2.4 (0.9-1.1)
== END 2021-07-02 16:20 | disposition home or self-care (01) ==
LOC: ACC 12:37
PROVIDERS: PCP Nurse Practitioner Family; Visit Provider Nurse Practitioner Family
DX: Z51.81 Encounter for therapeutic drug level monitoring (principal); Z79.01 Long term (current) use of anticoagulants
CPT/HCPCS: 85610; 99211; G0463

== ENCOUNTER 2021-07-31 11:00 | Outpatient (CLI) | payer MEDICARE, SELFPAY | END 2021-07-31 12:20 | disposition home or self-care (01) | LOC: ACC 11:01 | PROVIDERS: PCP Nurse Practitioner Family; Visit Provider Nurse Practitioner Family | DX: Z51.81 Encounter for therapeutic drug level monitoring (principal); Z79.01 Long term (current) use of anticoagulants | CPT/HCPCS: 85610; 99211; G0463 ==

== ENCOUNTER → 2021-08-06 12:40 | Outpatient (CLI) | payer MEDICARE, SELFPAY ==
--- NOTE | 2021-08-06 12:46 | XR_ITS ---
PROCEDURE: XR CHEST 2V CLINICAL HISTORY: copd,special attention to apex COMPARISON: CR CXR2V XR chest 2V from 09/05/2018 CR CXR1VP XR chest portable from 11/09/[address] ABDOMEN W CON from 02/27/[address] ANGIO ABDOMEN/FEMORAL from 06/15/2021 FINDINGS: The cardiomediastinal silhouette and pulmonary vascularity are within normal limits. There is faint increased density in the right lung base posteriorly and medially suspicious for a faint area of infiltrate. Minimal blunting of the right CP angle is noted. The lung apices are clear lumbar scoliosis convex right. Thoracic kyphosis. IMPRESSION: Possible right basilar infiltrate and small right effusion.. Dictated by: Terry Moreno MD 08/06/2021 13:50 Terry Moreno MD in [place] 08/06/2021 13:50
== END ==
LOC: RAD 12:42
PROVIDERS: PCP Nurse Practitioner Family; Visit Provider Specialist
DX: G62.9 Polyneuropathy, unspecified (principal); J44.9 Chronic obstructive pulmonary disease, unspecified; M79.602 Pain in left arm; R20.0 Anesthesia of skin
CPT/HCPCS: 71046

== ENCOUNTER 2021-08-12 10:51 | Outpatient (RCR) | payer MEDICARE, SELFPAY ==
--- NOTE | 2021-08-12 15:50 | HMH.OTOPEV ---
OT Inpatient Evaluation Rehab OT Outpatient Eval Start: 08/12/21 15:29 Freq: Status: Active Protocol: Document 08/12/21 15:32 RMARSHALL (Rec: 08/12/21 15:50 RMARSHALL [id number]) Electronically Signed By Jesus Francois OT 08/12/21 15:32 Outpatient Therapy Subjective History Subjective History Pt is 70 year old female who reports to therapy for initial evaluation to left hand. Pt explains she has been having numbness in small and ring finger on left hand for a few months. She does not recall a specific injury causing the numbness to begin. Pt has seen Neuro and had a nerve conduction test completed which found ulnar nerve entrapment. Pt does have obvious atrophy of the intrinsic hand muscles of left hand. Pt explains she does not experience any pain in the LUE, only numnbess in the two fingers. Pt's AROM at all joints of LUE are within normal limits. 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 Pt is right hand dominant. 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 Symptom Type Numbness Symptoms Relieved By Nothing Symptoms Aggravated By Physical Activity,Lifting Prior Functional Limitations None Current Functional Limitations Reaching,Lifting,Sleeping, Recreation Activity Symptom Description Constant but Variable Level of pain today (0-10) 0 Pain scale - at its best (0-10) 0 Pain scale - at its worst (0-10) 0 Wrist/Hand Eval Wrist Manual Muscle Testing Left Wrist Extension Strength Grade 3- Fair- Wrist Flexion Strength Grade 3- Fair- Wrist Radial Deviation Strength Grade 3- Fair- Wrist Ulnar Deviation Strength Grade 3- Fair- Forearm Supination Strength Grade 3- Fair- Forearm Pronation Strength Grade 3- Fair- Hand/Finger Manual Muscle testing Left Little Finger
== END 2021-08-12 10:55 | disposition home or self-care (01) ==
LOC: OT 10:51
PROVIDERS: PCP Nurse Practitioner Family; Visit Provider Specialist
DX: M79.602 Pain in left arm (principal); G56.22 Lesion of ulnar nerve, left upper limb
CPT/HCPCS: 97166

== ENCOUNTER 2021-09-02 08:50 | Outpatient (CLI) | payer MEDICARE, SELFPAY ==
--- NOTE | 2021-09-02 08:55 | XR_ITS ---
PROCEDURE: XR ELBOW LT MIN 3V CLINICAL INDICATION: left elbow pain COMPARISON: No exams were available for comparison FINDINGS: No fracture or dislocation. No lytic or blastic change. There is normal mineralization. The joint spaces are well-preserved. No significant degenerative/arthritic changes. No erosive changes evident. Other findings:None. IMPRESSION: No acute findings. Dictated by: Terry Moreno MD 09/02/2021 19:17 Terry Moreno MD in [place] 09/02/2021 19:17
[2021-09-02 15:46] LABS: PHA INR Fingerstick 2.4 (0.9-1.1)
== END 2021-09-02 15:58 | disposition home or self-care (01) ==
LOC: ACC 08:52
PROVIDERS: PCP Nurse Practitioner Family; Visit Provider Nurse Practitioner Family
DX: M25.522 Pain in left elbow (principal); Z79.01 Long term (current) use of anticoagulants
CPT/HCPCS: 73080; 85610; 99211; G0463

== ENCOUNTER 2021-09-02 10:43 | Emergency (ER) | payer MEDICARE, SELFPAY ==
[2021-09-02 10:55] VITALS: BP 141/90; PULSE 75; RESP 17; TEMP 36.6; O2SAT 96; BMI 26.6
--- NOTE | 2021-09-02 11:44 | HMH.EDUTC ---
[facility] Disposition Clinical Impression: Sinusitis Qualifiers: Sinusitis location: unspecified location Chronicity: unspecified Qualified Code(s): J32.9 - Chronic sinusitis, unspecified Disposition: Home, Self-Care Condition on Discharge: Good Instructions: Sinusitis, DI for Sinusitis, DI for Cough -- Adult Additional Instructions: Make sure to let the Warfarin Clinic know that you are taking Augmentin Follow up with your Family Doctor Return if needed Straight to ER if any life threatening symptoms Prescriptions: Amoxicillin/Potassium Clav [Augmentin 875-125 Tablet] 1 tab PO Q12H 7 Days #14 tab Transmission Status: Received by [facility] Accertify Benzonatate [Benzonatate 100mg cap] 100 mg PO TID PRN #15 cap PRN Reason: Cough Transmission Status: Received by [facility] Accertify Referrals: Gwen Miller APRN [Primary Care Provider] - As needed Time of Disposition: 11:57 Medical Decision Making - Papi Inquiry Pt receiving controlled substance: No Papi was queried for this patient: No Vital Signs: 09/02/21 10:55 09/02/21 12:02 Temperature 97.9 F 97.9 F Temperature Source Oral Pulse Rate 75 Pulse Rate [Right Brachial] 75 Respiratory Rate 17 17 Blood Pressure 141/90 H Blood Pressure [Right Arm] 141/90 H Blood Pressure Mean [Right Arm] 107 Blood Pressure Source [Right Arm] Automatic Cuff Blood Pressure Position [Right Arm] Sitting 02 Sat by Pulse Oximetry 96 Oxygen Delivery Method Room Air Orders (Tests/Meds): ED MEDICATIONS Discontinued Medications Generic Name Dose Route Start Last Admin Trade Name Freq PRN Reason Stop Dose Admin Methylprednisolone Sodium Succinate 125 mg 09/02/21 11:52 09/02/21 12:00 Methylprednisolone Sod Succ 125mg Vial IM 09/02/21 11:53 125 mg ONCE ONE Administration Medical Decision Narrative: Patient states that she has taken augmentin and tessalone perrles in the past without complications or reactions [facility] HPI - General Stated complaint: cough, sinus congestion Time Seen by Provider: 09/02/21 11:45 Mode of Arrival: Ambulatory Source of Information: Patient Limitations: No Limitations Description of Symptoms (Recalled from Triage Doc. by RN): PATIENT C/O COUGH AND CONGESTION X 3 DAYS HEENT Symptoms (Recalled from RN notes): No Resp Symptoms (Recalled from RN notes): Yes Skin Symptoms (Recalled from RN notes): No MS Symptoms (Recalled from RN notes): No Functional Status (Recalled from RN notes): WNL - History of Present Illness Provider Complaint: Patient states that she has been having sinus pain and pressure along with cough that is worse when she lays down for close to a month State that her said she is keeping him up at night with the coughing States that mucous from her nose is yellowish green so she came in to get checked - Related Data Home Medications Medication Instructions Recorded Confirmed buspirone 15 mg tablet 15 mg PO BID 03/06/18 09/02/21 metformin 850 mg tablet 850 mg PO BID 03/06/18 09/02/21 allopurinol 100 mg tablet 100 mg PO DAILY 09/23/20 09/02/21 omeprazole 20 mg capsule,delayed 20 mg PO DAILY 09/23/20 09/02/21 release pentoxifylline 400 mg 400 mg PO TID 09/23/20 09/02/21 tablet,extended release venlafaxine 37.5 mg 37.5 mg PO DAILY cap 05/21/21 09/02/21 capsule,extended release 24 hr furosemide 20 mg tablet 20 mg PO BID tab 06/04/21 09/02/21 venlafaxine 75 mg capsule,extended 75 mg PO DAILY cap 07/02/21 09/02/21 release 24 hr amlodipine 5 mg tablet 5 mg PO tab 08/06/21 09/02/21 gabapentin 100 mg capsule 400 mg PO DAILY cap 08/06/21 09/02/21 warfarin 3 mg tablet 3 mg PO tab 08/06/21 09/02/21 Previous Rx's Medication Instructions Recorded rosuvastatin 20 mg tablet 20 mg PO DAILY #30 tab 06/26/21 clonazepam 0.5 mg tablet 0.5 mg PO HS #30 tab 07/02/21 primidone 250 mg tablet 250 mg PO BID #60 tab 07/02/21 Amoxicillin/Potassium Clav 1 tab PO Q12H 7 Days #14 tab 09/02
[2021-09-02 12:02] VITALS: BP 141/90; PULSE 75; RESP 17; TEMP 36.6; O2SAT 96
== END 2021-09-02 12:09 | disposition home or self-care (01) ==
PROVIDERS: Emergency Provider Nurse Practitioner; PCP Nurse Practitioner Family
DX: J32.9 Chronic sinusitis, unspecified (principal); I48.0 Paroxysmal atrial fibrillation; F41.8 Other specified anxiety disorders; E11.9 Type 2 diabetes mellitus without complications; K21.9 Gastro-esophageal reflux disease without esophagitis; E78.5 Hyperlipidemia, unspecified; I10 Essential (primary) hypertension; M81.0 Age-related osteoporosis without current pathological fracture; F17.210 Nicotine dependence, cigarettes, uncomplicated
CPT/HCPCS: 73080; 85610; 96372; 99202; 99211; G0463

== ENCOUNTER → 2021-09-18 14:31 | Outpatient (CLI) | payer MEDICARE, SELFPAY ==
--- NOTE | 2021-09-18 14:36 | XR_ITS ---
PROCEDURE INFORMATION: Exam: XR Chest Exam date and time: 09/18/2021 2:36 PM Age: 70 years old Clinical indication: Other: High blood pressure; Additional info: Pre-op, high blood pressure TECHNIQUE: Imaging protocol: XR of the chest. Views: 2 views. COMPARISON: CR XR CHEST 2V 08/06/2021 12:48 PM FINDINGS: Lungs: Hyperexpanded lung de la cruz consistent with COPD Pleural spaces: Unremarkable. No pleural effusion. No pneumothorax. Heart/Mediastinum: Unremarkable. No cardiomegaly. Bones/joints: Unremarkable. IMPRESSION: Hyperexpanded lung de la cruz consistent with COPD
== END ==
LOC: RAD 14:33
PROVIDERS: PCP Nurse Practitioner Family; Visit Provider Nurse Practitioner Family
DX: Z01.818 Encounter for other preprocedural examination (principal)
CPT/HCPCS: 71046

== ENCOUNTER → 2021-09-22 14:34 | Outpatient (CLI) | payer MEDICARE, SELFPAY ==
[2021-09-22 15:14] LABS: Basophils % 0.5 % (0.1-2.0); Eosinophils # 0.1 K/mm3 (0.0-0.4); Eosinophils % 1.6 % (0.1-12.0); Hematocrit 37.9 % (37.0-47.0); Hemoglobin 12.6 g/dL (12.2-16.2); Lymphocytes # 1.5 K/mm3 (0.7-4.5); Mean Corpuscular HGB Conc 33.4 g/dL (31.8-35.4); Mean Corpuscular Hemoglobin 30.5 pg (27.0-31.2); Mean Corpuscular Volume 91.3 fl (81-99); Mean Platelet Volume 8.2 fl (7.4-10.4); Monocytes # 0.2 K/mm3 (0.1-1.0); Monocytes % 4.3 % (1.7-9.3); Neutrophils # 3.5 K/mm3 (1.8-7.8); Neutrophils % 65.7 % (37.0-80.0); Platelet Count 246 K/mm3 (142-424); Red Blood Count 4.15 M/mm3 (4.20-5.40); Red Cell Distribution Width 13.3 % (11.5-17.5); White Blood Count 5.3 K/mm3 (4.8-10.8)
[2021-09-22 15:45] LABS: INR 1.59 (0.9-1.1); Prothrombin Time 17.4 seconds (10.1-12.5)
[2021-09-22 16:01] LABS: Alanine Aminotransferase 17 U/L (12-78); Albumin Level 4.2 g/dl (3.5-5.0); Albumin/Globulin Ratio 1.6 (1.1-1.8); Alkaline Phosphatase 142 U/L (38-126); Anion Gap 10.1 mEq/L (5-15); Aspartate Amino Transferase 30 U/L (14-36); Bilirubin,Total 0.2 mg/dl (0.2-1.3); Blood Urea Nitrogen 14 mg/dl (7-17); Calcium 9.2 mg/dl (8.4-10.2); Carbon Dioxide 31 mmol/L (22.0-30.0); Chloride 96 mmol/L (98-107); Estimated Glomerular Filt Rate 71 ml/min (>60); GFR (African American) 86 ML/MIN (>60); Globulin 2.7 g/dL (1.3-3.2); Glucose 107 mg/dl (74-100); Potassium 5.1 mmoL/L (3.5-5.1); Sodium 132 mmol/L (136-145); Total Protein,Serum 6.9 g/dl (6.3-8.2)
[2021-09-22 16:06] LABS: Hemoglobin A1C 6.7 % (4.0-6.0)
== END ==
PROVIDERS: Nurse Practitioner Family; Visit Provider Orthopaedic Surgery
DX: E11.9 Type 2 diabetes mellitus without complications; G56.22 Lesion of ulnar nerve, left upper limb; I10 Essential (primary) hypertension; Z79.84 Long term (current) use of oral hypoglycemic drugs; Z51.81 Encounter for therapeutic drug level monitoring; Z79.01 Long term (current) use of anticoagulants
CPT/HCPCS: 36415; 80053; 83036; 85025; 85610

== ENCOUNTER → 2021-09-30 15:45 | Outpatient (CLI) | payer MEDICARE, SELFPAY | PROVIDERS: Visit Provider Orthopaedic Surgery | DX: Z01.818 Encounter for other preprocedural examination; Z11.52 Encounter for screening for COVID-19; G56.22 Lesion of ulnar nerve, left upper limb | CPT/HCPCS: C9803; U0003; U0005 ==

== ENCOUNTER 2021-10-02 06:53 | Day surgery (SDC) | payer MEDICARE, SELFPAY ==
[2021-09-30 11:45] VITALS: BMI 27.1
[2021-10-02] VITALS (11 sets, daily range): BP systolic 120–149; BP diastolic 61–87; PULSE 82–91; RESP 14–18; TEMP 36.2–38; O2SAT 90–96
[2021-10-02 07:34] LABS: INR 0.96 (0.9-1.1); Prothrombin Time 10.9 seconds (10.1-12.5)
--- NOTE | 2021-10-02 13:10 | SUR.PHASEI ---
1245- detailed report given to bren king in post op at this time. Pt states that she has had a lot of drainage/allergies recently, she has been coughing up drainage and phlegm throughout pacu and into postop. bren King notified of this. Pt left in stable condition.
--- NOTE | 2021-10-02 16:17 | HMH.OPNOTE ---
Date of procedure: 10/02/21 Pre-op Diagnosis:: Cubital tunnel syndrome, left Post-op Diagnosis:: Same Procedure performed:: 1. Cubital tunnel release, left 2. Anterior transposition of the ulnar nerve, left Surgeon:: Hussain Avalos MD Estimation Manager(s):: Daisy Chen PA-C LABOR RELATIONS MANAGER:: Yony Villa Anesthesia: regional (Supraclavicular nerve block), LMA Estimated blood loss (mL): 5 Clinical Note:: Patient is a 70 year old right hand dominant female with long-standing history of pain, paresthesias, muscle weakness involving her left hand. 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 She has a Shabbir-Terra anastomosis along with sensorimotor polyneuropathy but no involvement of median nerve is noted on these studies. Patient continues to be symptomatic with pain and paresthesias over the left hand with significant weakness in the hand. She has had symptoms for a long time and these are gradually getting worse. There is no history of any injury. She is a known type II diabetic and is also on long-term warfarin therapy. Please refer to my office notes for full details. Operative findings:: At surgery, the nerve is noted to be significantly constricted as it passed through the cubital tunnel. There was presence of hourglass constriction of the ulnar nerve behind the medial epicondyle and also some compression noted as it enters the flexor carpi ulnaris muscle. After the nerve was decompressed and the cubital tunnel, it was subluxing anteriorly over the medial epicondyle with flexion and extension. Therefore, I proceeded with anterior transposition of the ulnar nerve. Operative note:: On the day of the surgery the patient was met in the preoperative area. Patient was positively identified and the operative site was marked and initialed by me. A physical examination was performed and the chart was updated. I again discussed the procedure, risks and benefits and alternatives with the patient. We have also discussed the expected postoperative recovery and rehabilitation. We have discussed that the goal of the surgery is to stop further damage to the ulnar nerve by freeing up the nerve and possibly bringing it to the front of the elbow to relieve pressure on the nerve. We have discussed that return of sensation and motor function may or may not actually happen. We have discussed nonsurgical alternatives including use of a splint, activity limitations and nonsteroidal anti-inflammatory drugs. We discussed risks of cubital tunnel decompression and ulnar nerve transposition surgery; the complications include but are not limited to- bleeding, injury to nerves especially the medial brachial and antebrachial cutaneous nerves, painful neuroma, injury to blood vessels and tendons, infection, wound dehiscence (wound coming apart), incomplete relief/continued pain, persistent numbness, pain and weakness, worsening of nerve damage, failure of the condition to improve, incomplete return of function, recurrence of symptoms later on, numbness around the elbow, failure of the surgery to accomplish the desired goals, decreased use of the hand/arm, loss of use of the arm, loss of the hand or arm and even loss of life. The possibility of complex regional pain syndrome has been discussed. Likely need for further surgery in the future has been discussed. I've indicated to the patient where the proposed incision would be made and also discussed the possibility of extending the incision if needed to accomplish an effective nerve decompression and transfer. Patient asked appropriate questions and all have been answered by me. Patient wished to proceed with the surgery. Patient understood the risks, agreed to proceed with surgery and no guarantees or assurances were given or implied. The patient was brought to the operating room and placed supine on the operating table. The left upper extremity was placed over a side table. All the bony promin
[2022-07-15 10:55] LABS: POC Glucose,Bedside 150 (70-110)
== END 2021-10-02 13:40 | disposition home or self-care (01) ==
LOC: OR 06:55
PROVIDERS: PCP Nurse Practitioner Family; Visit Provider Orthopaedic Surgery
DX: G56.22 Lesion of ulnar nerve, left upper limb (principal); I48.91 Unspecified atrial fibrillation; I10 Essential (primary) hypertension; F17.210 Nicotine dependence, cigarettes, uncomplicated; Z79.01 Long term (current) use of anticoagulants; Z79.84 Long term (current) use of oral hypoglycemic drugs; Z79.899 Other long term (current) drug therapy
CPT/HCPCS: 64718; 82962; 85610; 96374; J2405

== ENCOUNTER 2021-10-07 10:06 | Outpatient (CLI) | payer MEDICARE, SELFPAY ==
[2021-10-07 14:50] LABS: PHA INR Fingerstick 2.1 (0.9-1.1)
== END 2021-10-07 15:09 | disposition home or self-care (01) ==
LOC: ACC 10:07
PROVIDERS: PCP Nurse Practitioner Family; Visit Provider Nurse Practitioner Family
DX: Z51.81 Encounter for therapeutic drug level monitoring (principal); Z79.01 Long term (current) use of anticoagulants
CPT/HCPCS: 85610; 99211; G0463

== ENCOUNTER 2021-10-22 07:26 | Outpatient (CLI) | payer MEDICARE, SELFPAY ==
--- NOTE | 2021-10-22 07:26 | CT_ITS ---
FINAL REPORT CLINICAL HISTORY: lung cancer screening pt has smoked for 47 years 1.5 to 2 packs FINDINGS: Low-Dose Chest CT CTDI vol (mGy): 2.90 DLP (mGy-cm): 96.64 Axial images were obtained from the lung apex to the mid abdomen by computed tomography. Low-dose protocol was utilized. FINDINGS: CHEST: There is no axillary adenopathy. There is no hilar adenopathy. There are a few small mediastinal lymph nodes measuring up to 1.8 cm, nonspecific. The heart is proper size. There is no pericardial or pleural effusion. There are moderate changes of centrilobular emphysema. There is a coarse linear density in the periphery of both lungs consistent with scarring or fibrosis. Limited images of the upper abdomen are unremarkable. Lung window images demonstrate a calcified granuloma at the right lung base. IMPRESSION: Modifier S: Few small mediastinal lymph nodes. Moderate changes of centrilobular emphysema. Coarse linear density as described consistent with scarring or fibrosis. Lung RADS category 1S. Recommend 6 month follow-up to better assess the mediastinal lymph nodes. Reviewed, Interpreted and Dictated by Jaden Johnson MD Transcribed by Ruby Acuña Authenticated by Jaden Johnson MD on 10/22/2021 11:55:53 AM [facility]
[2021-10-22 08:14] LABS: Basophils # 0.1 K/mm3 (0-0.2); Basophils % 1.1 % (0.1-2.0); Eosinophils # 0.1 K/mm3 (0.0-0.4); Eosinophils % 1.9 % (0.1-12.0); Hematocrit 41.4 % (37.0-47.0); Hemoglobin 13.2 g/dL (12.2-16.2); Lymphocytes # 1.7 K/mm3 (0.7-4.5); Lymphocytes % 25.2 % (10-50); Mean Corpuscular HGB Conc 31.9 g/dL (31.8-35.4); Mean Platelet Volume 8.1 fl (7.4-10.4); Monocytes # 0.2 K/mm3 (0.1-1.0); Monocytes % 3.4 % (1.7-9.3); Neutrophils # 4.5 K/mm3 (1.8-7.8); Neutrophils % 68.3 % (37.0-80.0); Platelet Count 277 K/mm3 (142-424); Red Cell Distribution Width 13.2 % (11.5-17.5); White Blood Count 6.6 K/mm3 (4.8-10.8)
[2021-10-25 16:43] LABS: D001-IgE D pteronyssinus <0.10 kU/L (Class 0); D002-IgE D farinae <0.10 kU/L (Class 0); E001-IgE Cat Dander <0.10 kU/L (Class 0); E005-IgE Dog Dander <0.10 kU/L (Class 0); E072-IgE Mouse Urine <0.10 kU/L (Class 0); G002-IgE Bermuda Grass <0.10 kU/L (Class 0); G006-IgE Timothy Grass <0.10 kU/L (Class 0); I006-IgE Cockroach, German <0.10 kU/L (Class 0); Immunoglobulin E, Total 282 IU/mL (6-495); M001-IgE Penicillium chrysogen <0.10 kU/L (Class 0); M002-IgE Cladosporium herbarum <0.10 kU/L (Class 0); M003-IgE Aspergillus fumigatus <0.10 kU/L (Class 0); M006-IgE Alternaria alternata <0.10 kU/L (Class 0); T001-IgE Maple/Box Elder <0.10 kU/L (Class 0); T003-IgE Common Silver Birch <0.10 kU/L (Class 0); T006-IgE Cedar, Mountain <0.10 kU/L (Class 0); T007-IgE Oak, White <0.10 kU/L (Class 0); T008-IgE Elm, American <0.10 kU/L (Class 0); T010-IgE Walnut <0.10 kU/L (Class 0); T011-IgE Maple Leaf Sycamore <0.10 kU/L (Class 0); T014-IgE Cottonwood <0.10 kU/L (Class 0); T015-IgE Ash, White <0.10 kU/L (Class 0); T022-IgE Pecan, Hickory <0.10 kU/L (Class 0); T070-IgE White Mulberry <0.10 kU/L (Class 0); W001-IgE Ragweed, Short <0.10 kU/L (Class 0); W011-IgE Thistle, Russian <0.10 kU/L (Class 0); W014-IgE Pigweed, Common <0.10 kU/L (Class 0); W018-IgE Sheep Sorrel <0.10 kU/L (Class 0)
== END 2021-10-22 11:10 | disposition home or self-care (01) ==
PROVIDERS: PCP Nurse Practitioner Family; Visit Provider Internal Medicine Pulmonary Disease
DX: F17.210 Nicotine dependence, cigarettes, uncomplicated (principal); J45.909 Unspecified asthma, uncomplicated; R06.00 Dyspnea, unspecified
CPT/HCPCS: 36415; 71271; 82785; 85025; 85610; 86003; 94618; 94726; 99211; G0463

== ENCOUNTER 2021-12-02 12:40 | Outpatient (CLI) | payer MEDICARE, SELFPAY ==
[2021-12-02 13:28] LABS: PHA INR Fingerstick 2.2 (0.9-1.1)
== END 2021-12-02 13:30 | disposition home or self-care (01) ==
LOC: ACC 12:41
PROVIDERS: PCP Nurse Practitioner Family; Visit Provider Nurse Practitioner Family
DX: Z51.81 Encounter for therapeutic drug level monitoring (principal); Z79.01 Long term (current) use of anticoagulants
CPT/HCPCS: 85610; 99211; G0463

== ENCOUNTER → 2022-02-01 09:54 | Outpatient (CLI) | payer MEDICARE, SELFPAY ==
[2022-02-01 10:23] LABS: Adenovirus F 40/41, stool Not Detected (NotDetected); Astrovirus Not Detected (NotDetected); Campylobacter Not Detected (NotDetected); Clostridium Difficile A/B, PCR Not Detected (NotDetected); Cryptosporidium Not Detected (NotDetected); Cyclospora Cayetanesis Not Detected (NotDetected); Entamoeba histolytica Not Detected (NotDetected); Enteroaggregative E coli Not Detected (NotDetected); Enteropathogenic E coli Not Detected (NotDetected); Enterotoxigenic E coli Not Detected (NotDetected); Giardia lamblia Not Detected (NotDetected); Norovirus Not Detected (NotDetected); Plesimonas Shigalloides, PCR Not Detected (NotDetected); Salmonella, PCR Not Detected (NotDetected); Sapovirus Not Detected (NotDetected); Shiga-like toxin E coli Not Detected (NotDetected); Shigella Enterovasive E coli Not Detected (NotDetected); Vibrio Cholerae Not Detected (NotDetected); Vibrio, PCR Not Detected (NotDetected); Yersinia Entercolitica, PCR Not Detected (NotDetected)
[2022-02-01 22:04] LABS: Rotavirus A Detected (NotDetected)
== END ==
LOC: LAB.DROPOF 09:56
PROVIDERS: Visit Provider Nurse Practitioner Family
DX: Z79.01 Long term (current) use of anticoagulants (principal); Z86.718 Personal history of other venous thrombosis and embolism; R19.7 Diarrhea, unspecified; A08.0 Rotaviral enteritis
CPT/HCPCS: 87506

== ENCOUNTER 2022-05-17 13:42 | Outpatient (CLI) | payer MEDICARE, SELFPAY | END 2022-05-17 14:32 | disposition home or self-care (01) | LOC: ACC 13:45 | PROVIDERS: PCP Nurse Practitioner Family; Visit Provider Nurse Practitioner Family | DX: Z51.81 Encounter for therapeutic drug level monitoring (principal); Z79.01 Long term (current) use of anticoagulants | CPT/HCPCS: 85610; 99211; G0463 ==

== ENCOUNTER 2022-06-25 13:03 | Outpatient (CLI) | payer MEDICARE, SELFPAY ==
[2022-06-25 14:31] LABS: PHA INR Fingerstick 1.9 (0.9-1.1)
== END 2022-06-25 15:50 ==
LOC: ACC 13:04
PROVIDERS: PCP Nurse Practitioner Family; Visit Provider Nurse Practitioner Family
DX: Z51.81 Encounter for therapeutic drug level monitoring (principal); Z79.01 Long term (current) use of anticoagulants; Z86.718 Personal history of other venous thrombosis and embolism
CPT/HCPCS: 85610; 99211; G0463

== ENCOUNTER 2022-08-06 10:47 | Outpatient (CLI) | payer MEDICARE, SELFPAY | END 2022-08-06 12:06 | LOC: ACC 10:49 | PROVIDERS: PCP Nurse Practitioner Family; Visit Provider Nurse Practitioner Family | DX: Z51.81 Encounter for therapeutic drug level monitoring (principal); Z79.01 Long term (current) use of anticoagulants | CPT/HCPCS: 85610; 99211; G0463 ==

== ENCOUNTER 2022-09-17 10:11 | Outpatient (CLI) | payer MEDICARE, SELFPAY ==
[2022-09-17 14:09] LABS: PHA INR Fingerstick 2.1 (0.9-1.1)
== END 2022-09-17 15:29 ==
LOC: ACC 10:12
PROVIDERS: PCP Nurse Practitioner Family; Visit Provider Nurse Practitioner Family
DX: Z51.81 Encounter for therapeutic drug level monitoring (principal); Z79.01 Long term (current) use of anticoagulants
CPT/HCPCS: 85610; 99211; G0463

== ENCOUNTER 2022-11-22 12:02 | Outpatient (CLI) | payer MEDICARE, SELFPAY | END 2022-11-22 12:53 | LOC: ACC 12:03 | PROVIDERS: PCP Nurse Practitioner Family; Visit Provider Nurse Practitioner Family | DX: Z51.81 Encounter for therapeutic drug level monitoring (principal); Z79.01 Long term (current) use of anticoagulants | CPT/HCPCS: 85610; 99211; G0463 ==

== ENCOUNTER 2023-02-21 12:48 | Outpatient (CLI) | payer MEDICARE, SELFPAY ==
[2023-02-21 14:42] LABS: PHA INR Fingerstick 2.2 (0.9-1.1)
== END 2023-02-21 15:14 ==
LOC: ACC 12:49
PROVIDERS: PCP Nurse Practitioner Family; Visit Provider Nurse Practitioner Family
DX: Z51.81 Encounter for therapeutic drug level monitoring (principal); Z79.01 Long term (current) use of anticoagulants
CPT/HCPCS: 85610; 99211; G0463

== ENCOUNTER 2023-03-21 11:07 | Inpatient (IN) | payer MEDICARE, SELFPAY ==
[2023-03-21] VITALS (15 sets, daily range): BP systolic 146–189; BP diastolic 83–128; PULSE 99–121; RESP 18–20; TEMP 36.6–36.9; O2SAT 91–98; BMI 28.3; BMI 27.8
--- NOTE | 2023-03-21 11:16 | CT_ITS ---
FINAL REPORT TECHNIQUE: Thin section axial images were obtained from skull base to vertex without contrast. Coronal reconstruction images were obtained from the axial data. Exam was performed using dose reduction technique. CLINICAL HISTORY: fall on blood thinner COMPARISON: None FINDINGS: There is age-appropriate atrophy. There is no mass effect or midline shift. There is no intracranial hemorrhage. All lacunar infarct is noted at the right basal ganglia. There is no hydrocephalus. Periventricular low density is likely related to changes of chronic small vessel ischemia. The basilar cisterns are preserved. The posterior fossa is without acute abnormality. The soft tissues are without acute abnormality. No acute osseous abnormality is identified. IMPRESSION: No intracranial hemorrhage or evidence of large cortical infarct. Atrophy and changes suggesting chronic small vessel ischemia. Reviewed, Interpreted and Dictated by Gardenia Downey MD Transcribed by Cely Caballero Authenticated and [facility]
--- NOTE | 2023-03-21 11:16 | XR_ITS ---
FINAL REPORT CLINICAL HISTORY: fall, low back pain COMPARISON: none FINDINGS: AP and lateral views of the lumbar spine were obtained. There is no prior exam for comparison. There is no acute fracture or malalignment. Dextroscoliosis is noted. There is multilevel degenerative disc disease. No acute paraspinal abnormality. IMPRESSION: No acute osseous abnormality of the lumbar spine. Reviewed, Interpreted and Dictated by Gardenia Downey MD Transcribed by Cely Caballero Authenticated and [facility]
--- NOTE | 2023-03-21 11:16 | CT_ITS ---
FINAL REPORT TECHNIQUE: Thin section axial images were obtained through the cervical spine without contrast. Multiplanar reconstruction images were obtained from the axial data. Exam was performed using dose reduction techniques. CLINICAL HISTORY: fall, neck pain COMPARISON: None FINDINGS: There is no acute fracture or acute malalignment of the cervical spine. There is no evidence of unilateral or bilateral facet lock. Vertebral body height is preserved. Craniocervical junction is intact. There is multilevel degenerative disc disease which is mild. No acute paraspinal abnormality is identified. IMPRESSION: No acute osseous abnormality of the cervical spine. Reviewed, Interpreted and Dictated by Gardenia Downey MD Transcribed by Cely Caballero Authenticated and [facility]
--- NOTE | 2023-03-21 11:16 | XR_ITS ---
FINAL REPORT CLINICAL HISTORY: fall, hip pain COMPARISON: 09/23/2020 FINDINGS: An AP view of the pelvis and a frog leg views of the right hip were obtained. On the frogleg view, cortical irregularity is seen of the subcapital femoral neck which may represent fracture. Degenerative disease is seen of the hips bilaterally. Soft tissues are without acute abnormality. IMPRESSION: Cortical irregularity of the subcapital right femoral neck. Fracture not excluded. Recommend CT for further evaluation. Reviewed, Interpreted and Dictated by Gardenia Downey MD Transcribed by Gertrudis Juarez Authenticated and . [facility]
--- NOTE | 2023-03-21 11:21 | HMH.EDGENADL ---
Discharge Plan Disposition Patient Disposition: Admitted Condition: Fair Prescriptions Prescriptions: No Action buspirone 15 mg tablet 15 mg PO TID metformin 850 mg tablet 850 mg PO BID gabapentin [Neurontin] 100 mg capsule 400 mg PO DAILY Rx Instructions: 100mg in AM 100mg afternoon 200mg HS venlafaxine 37.5 mg capsule,extended release 24hr 37.5 mg PO DAILY Label Comments: TAKE ONE CAPSULE BY MOUTH EVERY DAY --TAKE WITH FOOD-- furosemide 20 mg tablet 20 mg PO BID pentoxifylline 400 mg tablet extended release 400 mg PO TID Rx Instructions: administer with meals omeprazole 20 mg capsule,delayed release(DR/EC) 20 mg PO DAILY allopurinol 100 mg tablet 100 mg PO DAILY venlafaxine 75 mg capsule,extended release 24hr 75 mg PO DAILY Label Comments: TAKE ONE CAPSULE BY MOUTH EVERY DAY --TAKE WITH FOOD-- warfarin 3 mg tablet 3 mg PO DAILY Rx Instructions: TUE-TUE-TUE = 9mg, rest of the week 6 mg YDJ-VIRE-DTEAJ-TUE = 6mg amlodipine 5 mg tablet 5 mg PO DAILY azelastine 205.5 mcg (0.15 %) spray,non-aerosol 1 spray INTRANASAL HS 90 Days Qty: 30 2RF Rx Instructions: administer into each nostril clonazepam [Klonopin] 0.5 mg tablet 0.5 mg PO HS Qty: 30 5RF Rx Instructions: administer 30 minutes before bedtime primidone 250 mg tablet 250 mg PO BID Qty: 60 5RF hydrocodone-acetaminophen 5-325 mg tablet 1 tab PO Q6H PRN (Reason: pain) Qty: 14 0RF rosuvastatin 20 mg tablet See Rx Instructions .ROUTE .COMPLEX Qty: 30 5RF Dose Instruction: TAKE ONE TABLET BY MOUTH DAILY Rx Instructions: TAKE ONE TABLET BY MOUTH DAILY calcium polycarbophil 625 MG tablet 2 tab PO DAILY Rx Instructions: unknown dose Referrals Follow up/Referrals: Gwen Miller APRN [Primary Care Provider] - See instructions Clinical Impressions Clinical Impression: Closed fracture of right hip, HTN (hypertension), Anticoagulated, DM2 (diabetes mellitus, type 2) Discharge ED Provider: Patricia Quiroz Adult HPI General Chief complaint: Fall Stated complaint: Fall 03/19@home RT leg RT hip pain lower back pain Time Seen by Provider: 03/21/23 11:12 History of Present Illness HPI narrative: 72-year-old female presenting to the emergency department with head injury, right hip pain after a fall. Fall happened on Tuesday, 2 days ago. She was in her yard, walking up a small slope when she fell backwards. She believes she landed on her buttocks and struck the back of her head. She was unable to get up on her own, required help from family members. She had pain located in her right hip and low back. Initially it was sharp. Now it is constant and achy. She struck the back of her head, feels like she has a bruise. No loss of consciousness. No vision changes. She takes Coumadin. Denies chest pain, abdominal pain, nausea, vomiting, shortness of breath. Tried taking her tramadol yesterday without much relief. Related Data Home Medications Medication Instructions Recorded Confirmed buspirone 15 mg tablet 15 mg PO TID Anxiety 03/06/18 11/22/22 metformin 850 mg tablet 850 mg PO BID Diabetes 03/06/18 11/22/22 allopurinol 100 mg tablet 100 mg PO DAILY gout 09/23/20 11/22/22 omeprazole 20 mg capsule,delayed 20 mg PO DAILY GERD 09/23/20 11/22/22 release pentoxifylline 400 mg 400 mg PO TID circulation 09/23/20 11/22/22 tablet,extended release venlafaxine 37.5 mg 37.5 mg PO DAILY Depression 05/21/21 11/22/22 capsule,extended release 24 hr furosemide 20 mg tablet 20 mg PO BID Fluid 06/04/21 11/22/22 venlafaxine 75 mg capsule,extended 75 mg PO DAILY Depression 07/02/21 11/22/22 release 24 hr amlodipine 5 mg tablet 5 mg PO DAILY blood pressure 08/06/21 11/22/22 gabapentin 100 mg capsule 400 mg PO DAILY Pain 08/06/21 11/22/22 (Neurontin) warfarin 3 mg tablet 3 mg PO DAILY
[2023-03-21 11:33] LABS: Chloride 95 mmol/L (98-107); Potassium 3.8 mmoL/L (3.5-5.1); Sodium 133 mmol/L (136-145)
[2023-03-21 11:35] LABS: Blood Urea Nitrogen 14 mg/dl (7-17)
[2023-03-21 11:36] LABS: Alanine Aminotransferase 24 U/L (12-78); Albumin Level 4.1 g/dl (3.5-5.0); Albumin/Globulin Ratio 1.3 (1.1-1.8); Alkaline Phosphatase 113 U/L (38-126); Anion Gap 16.8 mEq/L (5-15); Aspartate Amino Transferase 29 U/L (14-36); Bilirubin,Total 0.4 mg/dl (0.2-1.3); Calcium 8.7 mg/dl (8.4-10.2); Carbon Dioxide 25 mmol/L (22.0-30.0); Creatinine Clearance Estimated 61 mL/min (50-200); Estimated Glomerular Filt Rate 82 ml/min (>60); GFR (African American) 99 ML/MIN (>60); Globulin 3.2 g/dL (1.3-3.2); Glucose 158 mg/dl (74-100); Total Protein,Serum 7.3 g/dl (6.3-8.2)
[2023-03-21 11:38] LABS: Basophils % 0.5 % (0.1-2.0); Eosinophils # 0.1 K/mm3 (0.0-0.4); Hematocrit 41.7 % (37.0-47.0); Hemoglobin 13.5 g/dL (12.2-16.2); Lymphocytes # 0.7 K/mm3 (0.7-4.5); Lymphocytes % 10.2 % (10-50); Mean Corpuscular HGB Conc 32.4 g/dL (31.8-35.4); Mean Corpuscular Hemoglobin 28.3 pg (27.0-31.2); Mean Corpuscular Volume 87.4 fl (81-99); Monocytes # 0.3 K/mm3 (0.1-1.0); Monocytes % 3.8 % (1.7-9.3); Neutrophils % 84.5 % (37.0-80.0); Platelet Count 193 K/mm3 (142-424); Red Blood Count 4.77 M/mm3 (4.20-5.40); Red Cell Distribution Width 14.8 % (11.5-17.5); White Blood Count 7.1 K/mm3 (4.8-10.8)
[2023-03-21 11:40] LABS: INR 2.84 (0.9-1.1); Prothrombin Time 28.9 seconds (10.1-12.5)
--- NOTE | 2023-03-21 12:11 | PC.NURSE ---
pt return from radiology
--- NOTE | 2023-03-21 12:43 | PC.NURSE ---
contacted rad to staff to check on status of ct/xray reports-states all studies for pt are in a locked status
--- NOTE | 2023-03-21 13:37 | CT_ITS ---
FINAL REPORT TECHNIQUE: Axial imaging of the pelvis was obtained without contrast.This study was performed with techniques to keep radiation doses as low as reasonably achievable, (ALARA). Individualized dose reduction technique using automated exposure control or adjustment of mA and/or kV according to the patient's size were employed. CLINICAL HISTORY: right hip pain, abnormal xray FINDINGS: There is a comminuted, angulated subcapital right femoral neck fracture. No additional fracture is seen. There is no dislocation. Degenerative joint disease is seen of the hips bilaterally. Soft tissues demonstrate no acute abnormality. Sacral ala are intact. Abnormal attenuation is seen surrounding the lower poles of the kidneys bilaterally of unknown chronicity. Pelvic GI tract is without acute abnormality. Remaining soft tissues are unremarkable. IMPRESSION: Subcapital right femoral neck fracture. Reviewed, Interpreted and Dictated by Gardenia Downey MD Transcribed by Gertrudis Juarez Authenticated and [facility]
--- NOTE | 2023-03-21 14:13 | PC.NURSE ---
pt returned from ct via stretcher
--- NOTE | 2023-03-21 15:33 | PC.NURSE ---
contacted rad to check on status of CT pelvis results- states scan is locked
--- NOTE | 2023-03-21 16:32 | PC.NURSE ---
spoke with [facility] rn who relayed message to dr. mao who is in surgery r/t pt has a R hip fracture. Dr. Mao states to hold pts coumadin and he will see pt on second floor after he is finished with surgery.
--- NOTE | 2023-03-21 16:36 | PC.NURSE ---
notified warehouse person of admission
[2023-03-21 16:41] LABS: Coronavirus 19, PCR Not Detected (NotDetected); Influenza A, PCR Not Detected (NotDetected); Influenza B, PCR Not Detected (NotDetected)
--- NOTE | 2023-03-21 17:10 | PC.NURSE ---
report called to nurse on second floor
--- NOTE | 2023-03-21 17:30 | PC.NURSE ---
pt to 2nd floor, room 203 via stretcher
--- NOTE | 2023-03-21 17:32 | PC.NURSE ---
arrived to floor by stretcher
--- NOTE | 2023-03-21 18:09 | EXP.HP ---
History of Present Illness *Admission Date: 03/21/23 *Reason for visit:: right hip fracture *History of present illness: 72-year-old female presenting to the emergency department with head injury, right hip pain after a fall.? PMHX of HTN, DM 2, DVT, and smoking. Fall happened on Tuesday, 2 days ago.? She was in her yard, walking up a small slope when she fell backwards.? She believes she landed on her buttocks and struck the back of her head.? She was unable to get up on her own, required help from family members.? She had pain located in her right hip and low back.? Initially it was sharp.? Now it is constant and achy.? She struck the back of her head, feels like she has a bruise.? No loss of consciousness.? No vision changes.? She takes Coumadin.? Denies chest pain, abdominal pain, nausea, vomiting, shortness of breath.? Tried taking her tramadol yesterday without much relief. ED physician discussed case with Hospitalist team and consulted ortho surgery. CT revealed comminuted subcapital right femoral neck fracture. Patient will be admitted for medical management and surgery tomorrow. [facility] Disclaimer: The information contained in this section may have been updated after the patient was seen, as this information can be updated by other users. Social History Smoking Status: Current every day smoker tobacco type: cigarettes packs per day: 2 second hand exposure: Yes alcohol intake: current substance use type: denies use current occupational status: retired Travel in the last 8 weeks: None household members: spouse and family housing: house current occupational exposures/hazards: No caffeine: Yes Review of Systems Review of Systems Review of systems:: pertinent systems reviewed and negative unless documented below Constitutional Constitutional: Reports system reviewed and no additional complaints, except as documented, Denies frequent falls and Reports headache(s) Eyes Eyes: Reports system reviewed and no additional complaints, except as documented and Denies loss of vision ENT Ears, Nose, Mouth, and Throat: Reports system reviewed and no additional complaints, except as documented, Reports disequilibrium, Denies dizziness and Reports headache(s) *Cardiovascular Cardiovascular: Reports system reviewed and no additional complaints, except as documented *Respiratory Respiratory: Reports system reviewed and no additional complaints, except as documented *Gastrointestinal Gastrointestinal: Reports system reviewed and no additional complaints, except as documented *Genitourinary Genitourinary: Reports system reviewed and no additional complaints, except as documented *Musculoskeletal Comments: c/o tremors *Neurologic Neurologic: Reports disequilibrium, Denies dizziness, Denies frequent falls, Reports headache(s), Denies loss of vision and Reports tremor(s) Meds Home Medications and Allergies Home Medications Medication Instructions Recorded Confirmed Type buspirone 15 mg tablet 15 mg PO TID Anxiety 03/06/18 03/21/23 History metformin 850 mg tablet 850 mg PO BID Diabetes 03/06/18 03/21/23 History allopurinol 100 mg tablet 100 mg PO DAILY gout 09/23/20 03/21/23 History omeprazole 20 mg capsule,delayed 20 mg PO DAILY GERD 09/23/20 03/21/23 History release pentoxifylline 400 mg 400 mg PO TID circulation 09/23/20 03/21/23 History tablet,extended release venlafaxine 37.5 mg 37.5 mg PO DAILY Depression 05/21/21 03/21/23 History capsule,extended release 24 hr furosemide 20 mg tablet 20 mg PO BID Fluid 06/04/21 03/21/23 History venlafaxine 75 mg capsule,extended 75 mg PO DAILY Depression 07/02/21 03/21/23 History release 24 hr amlodipine 5 mg tablet 5 mg PO DAILY blood pressure 08/06/21 03/21/23 History gabapentin 100 mg capsule 400 mg PO DAILY Pain 08/06/21 03/21/23 History (Neurontin) warfarin 3 mg tablet 3 mg PO DAILY Blood thinner 08/06/21 03/21/23 History calcium polycarbophil 625 mg tablet 2 tab
[2023-03-21 19:02] LABS: Hemoglobin A1C 6.9 % (4.0-6.0)
--- NOTE | 2023-03-21 19:44 | EXP.ORTH.CON ---
History of Present Illness *Admission Date: 03/21/23 *History of present illness: 72-year-old female presenting to the emergency department with head injury, right hip pain after a fall.? PMHX of HTN, DM 2, DVT, and smoking. Fall happened on Tuesday, 2 days ago.? She was in her yard, walking up a small slope when she fell backwards.? She believes she landed on her buttocks and struck the back of her head.? She was unable to get up on her own, required help from family members.? She had pain located in her right hip and low back.? Initially it was sharp.? Now it is constant and achy.? She struck the back of her head, feels like she has a bruise.? No loss of consciousness.? No vision changes.? She takes Coumadin.? Denies chest pain, abdominal pain, nausea, vomiting, shortness of breath.? Tried taking her tramadol yesterday without much relief. ED physician discussed case with Hospitalist team and consulted ortho surgery. CT revealed comminuted subcapital right femoral neck fracture. Patient will be admitted for medical management. [facility] Disclaimer: The information contained in this section may have been updated after the patient was seen, as this information can be updated by other users. Social History Smoking Status: Current every day smoker tobacco type: cigarettes packs per day: 2 second hand exposure: Yes alcohol intake: current substance use type: denies use current occupational status: retired Travel in the last 8 weeks: None household members: spouse and family housing: house current occupational exposures/hazards: No caffeine: Yes Review of Systems Constitutional Constitutional: Denies frequent falls and Reports headache(s) Eyes Eyes: Denies loss of vision ENT Ears, Nose, Mouth, and Throat: Reports disequilibrium, Denies dizziness and Reports headache(s) *Neurologic Neurologic: Reports disequilibrium, Denies dizziness, Denies frequent falls, Reports headache(s), Denies loss of vision and Reports tremor(s) Meds Home Medications and Allergies Home Medications Medication Instructions Recorded Confirmed Type buspirone 15 mg tablet 15 mg PO TID Anxiety 03/06/18 03/21/23 History metformin 850 mg tablet 850 mg PO BID Diabetes 03/06/18 03/21/23 History allopurinol 100 mg tablet 100 mg PO DAILY gout 09/23/20 03/21/23 History omeprazole 20 mg capsule,delayed 20 mg PO DAILY GERD 09/23/20 03/21/23 History release pentoxifylline 400 mg 400 mg PO TID circulation 09/23/20 03/21/23 History tablet,extended release venlafaxine 37.5 mg 37.5 mg PO DAILY Depression 05/21/21 03/21/23 History capsule,extended release 24 hr furosemide 20 mg tablet 20 mg PO BID Fluid 06/04/21 03/21/23 History venlafaxine 75 mg capsule,extended 75 mg PO DAILY Depression 07/02/21 03/21/23 History release 24 hr amlodipine 5 mg tablet 5 mg PO DAILY blood pressure 08/06/21 03/21/23 History gabapentin 100 mg capsule 400 mg PO DAILY Pain 08/06/21 03/21/23 History (Neurontin) warfarin 3 mg tablet 3 mg PO DAILY Blood thinner 08/06/21 03/21/23 History calcium polycarbophil 625 mg tablet 2 tab PO DAILY . 10/02/21 03/21/23 History hydrocodone 5 mg-acetaminophen 325 1 tab PO Q6H PRN pain #14 tabs 10/02/21 03/21/23 Rx mg tablet clonazepam 0.5 mg tablet (Klonopin) 0.5 mg PO HS Tremor #30 tabs 11/22/22 03/21/23 Rx primidone 250 mg tablet 250 mg PO BID Tremors #60 tabs 11/22/22 03/21/23 Rx azelastine 205.5 mcg (0.15 %) 1 spray intranasal HS . 03/21/23 03/21/23 History nasal spray rosuvastatin 20 mg tablet See Rx Instructions .Route 03/21/23 03/21/23 History .COMPLEX Cholesterol New Prescriptions to Start Prescriptions: Allergies Allergy/AdvReac Type Severity Reaction Status Date / Time ciprofloxacin [From Cipro] Allergy Unknown Verified 11/22/22 10:59 allergy reaction latex Allergy Unknown Verified 11/22/22 10:59 allergy reaction morphine Allergy Unknown Verified 11/22/22 10:59 allergy
[2023-03-22] VITALS (15 sets, daily range): BP systolic 137–161; BP diastolic 70–98; PULSE 96–113; RESP 16–18; TEMP 36.4–37.1; O2SAT 93–97; BMI 27.8
[2023-03-22 06:40] LABS: Lymphocytes # 0.9 K/mm3 (0.7-4.5); Lymphocytes % 16.1 % (10-50); Mean Corpuscular Volume 88.5 fl (81-99); Mean Platelet Volume 7.3 fl (7.4-10.4); Neutrophils # 4.3 K/mm3 (1.8-7.8)
[2023-03-22 06:46] LABS: Chloride 94 mmol/L (98-107); Potassium 3.8 mmoL/L (3.5-5.1); Sodium 135 mmol/L (136-145)
[2023-03-22 06:47] LABS: INR 2.76 (0.9-1.1); Prothrombin Time 28.1 seconds (10.1-12.5)
[2023-03-22 06:48] LABS: Alanine Aminotransferase 18 U/L (12-78); Aspartate Amino Transferase 35 U/L (14-36); Basophils % 0.3 % (0.1-2.0); Blood Urea Nitrogen 15 mg/dl (7-17); Creatinine Clearance Estimated 56 mL/min (50-200); Eosinophils # 0.1 K/mm3 (0.0-0.4); Eosinophils % 2.1 % (0.1-12.0); Estimated Glomerular Filt Rate 70 ml/min (>60); GFR (African American) 85 ML/MIN (>60); Hematocrit 36.3 % (37.0-47.0); Mean Corpuscular Hemoglobin 29.2 pg (27.0-31.2); Monocytes # 0.3 K/mm3 (0.1-1.0); Monocytes % 5.8 % (1.7-9.3); Neutrophils % 75.7 % (37.0-80.0); Platelet Count 161 K/mm3 (142-424); Red Blood Count 4.11 M/mm3 (4.20-5.40); Red Cell Distribution Width 14.3 % (11.5-17.5); White Blood Count 5.7 K/mm3 (4.8-10.8)
[2023-03-22 06:49] LABS: Albumin Level 3.7 g/dl (3.5-5.0); Albumin/Globulin Ratio 1.2 (1.1-1.8); Alkaline Phosphatase 118 U/L (38-126); Anion Gap 14.8 mEq/L (5-15); Bilirubin,Total 0.4 mg/dl (0.2-1.3); Calcium 8.5 mg/dl (8.4-10.2); Carbon Dioxide 30 mmol/L (22.0-30.0); Globulin 3.2 g/dL (1.3-3.2); Glucose 149 mg/dl (74-100); Magnesium 1.5 mg/dl (1.6-2.3); Total Protein,Serum 6.9 g/dl (6.3-8.2)
[2023-03-22 07:01] LABS: POC Glucose,Bedside 157 (70-110)
--- NOTE | 2023-03-22 08:18 | HMH.PHAINT1 ---
Pharmacy Intervention Comments: Home medication list verified through external fill history from outside pharmacy and med list from PCP office.
--- NOTE | 2023-03-22 08:22 | ECG_ITS ---
APPROVED REPORT Exam: Resting ECG HR:104 bpm ECG Measurements Heart Rate 104 AXES ME 151 P 24 QRSd 86 QRS -2 QT 346 T 30 QTc 407 Conclusion SINUS TACHYCARDIA WITH OCCASIONAL SUPRAVENTRICULAR PREMATURE COMPLEXES ABNORMAL RHYTHM ECG UNCONFIRMED REPORT Electronically signed by : Bam Knott MD 03/24/2023 09:29:46
[2023-03-22 11:11] LABS: POC Glucose,Bedside 145 (70-110)
--- NOTE | 2023-03-22 12:02 | EXP.ACUTE.PN ---
Subjective *Date: 03/22/23 *Time: 12:58 Interval history: Patient's pain is minimal to nonexistent if she does not move. Stable this morning. On 2 L nasal cannula oxygen that she states she does not wear at home. Does report a 50+ pack year history. No nausea or vomiting. Blood pressure acceptable. Medical Exam Vital signs and Labs for Last 24 Hours: Vital Signs Temp Pulse Pulse Resp BP BP Pulse Ox 03/22/23 11:55 98.7 F 101 H 16 157/98 H 97 03/22/23 11:50 98.7 F 103 H 16 156/87 H 97 03/22/23 11:50 98.7 F 103 H 16 156/87 H 97 03/22/23 11:39 98.8 F 106 H 16 140/88 97 03/22/23 08:00 97 03/22/23 07:40 97.5 F L 106 H 16 161/81 H 96 03/22/23 04:00 98.7 F 109 H 16 137/72 93 L 03/21/23 19:40 98.4 F 105 H 18 146/83 H 93 L 03/21/23 17:46 97.9 F 99 H 20 169/98 H 96 03/21/23 17:00 101 H 176/103 H 96 03/21/23 16:41 100 H 175/101 H 95 03/21/23 16:30 102 H 162/128 H 96 03/21/23 16:00 107 H 164/107 H 94 L 03/21/23 15:30 102 H 189/102 H 92 L 03/21/23 15:00 107 H 176/104 H 92 L 03/21/23 14:30 102 H 184/109 H 93 L 03/21/23 13:30 107 H 170/99 H 96 03/21/23 13:00 107 H 176/100 H 98 03/21/23 12:30 104 H 171/106 H 98 Intake and Output 03/21/23 03/22/23 03/22/23 23:59 07:59 15:59 Intake Total 0 / 0 Output Total 600 / 600 Balance -600 / -600 0 / -600 Intake: Intake (Blood Product) Amt 0 / 0 Fresh Frozen Plasma Unit 0 / 0 [id number] Output: Output, Urine Amount 600 / 600 Other: Weight 71.469 kg 71.259 kg Patient Weight 03/22/23 23:59 Weight 71.259 kg Laboratory Results - last 24 hr 03/21/23 11:20: Hemoglobin A1c 6.9 H 03/21/23 16:36: SARS-CoV-2 (PCR) Not detected, Influenza A Untype (PCR) Not detected, Influenza Type B (PCR) Not detected 03/22/23 05:45: WBC 5.7, RBC 4.11 L, Hgb 12.0 L D, Hct 36.3 L, MCV 88.5, MCH 29.2, MCHC 33.0, RDW 14.3, Plt Count 161, MPV 7.3 L, Neut % (Auto) 75.7, Lymph % (Auto) 16.1, [place] % (Auto) 5.8, Eos % (Auto) 2.1, Baso % (Auto) 0.3, Neut # (Auto) 4.3, Lymph # (Auto) 0.9, [place] # (Auto) 0.3, Eos # (Auto) 0.1, Baso # (Auto) 0.0 03/22/23 05:45: PT 28.1 H, INR 2.76 H 03/22/23 05:45: Sodium 135 L, Potassium 3.8, Chloride 94 L, Carbon Dioxide 30, Anion Gap 14.8, BUN 15, Creatinine 0.80, Estimated Creat Clear 56, Estimated GFR 70, Est GFR ( Amer) 85, Glucose 149 H, Calcium 8.5, Magnesium 1.5 L, Total Bilirubin 0.4, AST 35, ALT 18, Alkaline Phosphatase 118, Total Protein 6.9, Albumin 3.7, Globulin 3.2, Albumin/Globulin Ratio 1.2 03/22/23 05:45: Blood Type Confirm AB Positive 03/22/23 06:21: POC Glucose 157 H 03/22/23 07:30: Blood Type AB Positive 03/22/23 10:47: POC Glucose 145 H I & O for Labs for Last 24 Hours: Intake & Output 03/19/23 03/20/23 03/21/23 03/22/23 23:59 23:59 23:59 23:59 Intake Total 0 / 0 Output Total 600 / 600 Balance -600 / -600 Weight 71.469 kg 71.259 kg Constitutional: Present no acute distress, average body habitus, chronically ill appearing and disheveled Head: Present atraumatic and normocephalic ENT: Present normal exam Neck: Present normal inspection Respiratory: Present prolonged expiratory phase, rhonchi, crackles and normal respiratory effort; Absent wheezes Cardiac: Present Reg Rate and Rhythm GI: Present soft and normal bowel sounds; Absent distention or tenderness Comment:: Right leg externally rotated and shorter than left. Neurovascularly intact in feet. Skin: Present intact; Absent erythema Neuro: Present Grossly Intact, alert, awake, oriented x 3 and moves all extremities Assessment and Plan *Assessment and plan (1) Closed fracture of right hip: Status: Acute Category: Medical Code(s): S72.001A - Fracture of unspecified part of neck of right femur, initial encounter for closed fracture (2) DM2 (diabetes mellitus, type 2): Status: Ac
--- NOTE | 2023-03-22 12:03 | XR_ITS ---
FINAL REPORT CLINICAL HISTORY: new O2 requirement FINDINGS: No acute pulmonary opacity is present. Emphysema with chronic interstitial changes. There is no evidence of effusion or pneumothorax. Mediastinum is unremarkable. Heart size is normal. IMPRESSION: No acute abnormality. Reviewed, Interpreted and Dictated by Carlos Harris MD Transcribed by Reji Fraire Authenticated and [facility]
--- NOTE | 2023-03-22 12:12 | P.PN_ITS ---
Subjective *Date: 03/22/23 *Time: 12:12 Interval history: Patient laying comfortably in the bed. She reports that she is not moving her legs she is okay. No new complaints. Is receiving [facility] Ortho Exam (Inpt) Vital signs and Labs for Last 24 Hours: Temp Pulse Resp BP Pulse Ox 98.7 F 102 H 16 157/98 H 97 03/22/23 12:00 03/22/23 12:00 03/22/23 12:00 03/22/23 11:55 03/22/23 12:00 Laboratory Results - last 24 hr 03/21/23 11:20: Hemoglobin A1c 6.9 H 03/21/23 16:36: SARS-CoV-2 (PCR) Not detected, Influenza A Untype (PCR) Not detected, Influenza Type B (PCR) Not detected 03/22/23 05:45: WBC 5.7, RBC 4.11 L, Hgb 12.0 L D, Hct 36.3 L, MCV 88.5, MCH 29.2, MCHC 33.0, RDW 14.3, Plt Count 161, MPV 7.3 L, Neut % (Auto) 75.7, Lymph % (Auto) 16.1, [place] % (Auto) 5.8, Eos % (Auto) 2.1, Baso % (Auto) 0.3, Neut # (Auto) 4.3, Lymph # (Auto) 0.9, [place] # (Auto) 0.3, Eos # (Auto) 0.1, Baso # (Auto) 0.0 03/22/23 05:45: PT 28.1 H, INR 2.76 H 03/22/23 05:45: Sodium 135 L, Potassium 3.8, Chloride 94 L, Carbon Dioxide 30, Anion Gap 14.8, BUN 15, Creatinine 0.80, Estimated Creat Clear 56, Estimated GFR 70, Est GFR ( Amer) 85, Glucose 149 H, Calcium 8.5, Magnesium 1.5 L, Total Bilirubin 0.4, AST 35, ALT 18, Alkaline Phosphatase 118, Total Protein 6.9, Albumin 3.7, Globulin 3.2, Albumin/Globulin Ratio 1.2 03/22/23 05:45: Blood Type Confirm AB Positive 03/22/23 06:21: POC Glucose 157 H 03/22/23 07:30: Blood Type AB Positive 03/22/23 10:47: POC Glucose 145 H I & O for Labs for Last 24 Hours: Intake & Output 03/19/23 03/20/23 03/21/23 03/22/23 23:59 23:59 23:59 23:59 Intake Total 0 / 0 Output Total 600 / 600 Balance -600 / -600 Weight 157 lb 9 oz 157 lb 1.6 oz Additional findings:: Right hip: Slightly externally rotated pain with any active passive range of motion. Assessment and Plan *Assessment and plan (1) Displaced fracture of right femoral neck: Status: Acute Category: Medical Code(s): S72.001A - Fracture of unspecified part of neck of right femur, initial encounter for closed fracture Plan Patient planned for surgery tomorrow morning 930. Plan is for hemiarthroplasty of the right hip. Should be able to be weightbearing as tolerated after surgery and be evaluated for rehab potential and placement.
[2023-03-22 14:23] LABS: Hematocrit 35.1 % (37.0-47.0); Hemoglobin 11.2 g/dL (12.2-16.2)
[2023-03-22 16:01] LABS: POC Glucose,Bedside 132 (70-110)
[2023-03-22 17:56] LABS: INR 1.58 (0.9-1.1); Prothrombin Time 16.6 seconds (10.1-12.5)
[2023-03-22 20:46] LABS: POC Glucose,Bedside 153 (70-110)
[2023-03-23] VITALS (21 sets, daily range): BP systolic 126–154; BP diastolic 57–92; PULSE 94–121; RESP 14–18; TEMP 36.4–43; O2SAT 93–98; BMI 28.5
[2023-03-23 05:34] LABS: POC Glucose,Bedside 161 (70-110)
[2023-03-23 06:29] LABS: Basophils % 0.2 % (0.1-2.0); Eosinophils # 0.1 K/mm3 (0.0-0.4); Eosinophils % 2.1 % (0.1-12.0); Hematocrit 35.3 % (37.0-47.0); Hemoglobin 11.4 g/dL (12.2-16.2); Lymphocytes # 0.9 K/mm3 (0.7-4.5); Lymphocytes % 21.8 % (10-50); Mean Corpuscular HGB Conc 32.3 g/dL (31.8-35.4); Mean Corpuscular Hemoglobin 28.4 pg (27.0-31.2); Mean Corpuscular Volume 88.2 fl (81-99); Mean Platelet Volume 8.2 fl (7.4-10.4); Monocytes # 0.3 K/mm3 (0.1-1.0); Monocytes % 6.7 % (1.7-9.3); Neutrophils % 69.2 % (37.0-80.0); Platelet Count 161 K/mm3 (142-424); Red Cell Distribution Width 14.4 % (11.5-17.5); White Blood Count 4.3 K/mm3 (4.8-10.8)
[2023-03-23 06:31] LABS: Chloride 93 mmol/L (98-107); Potassium 3.8 mmoL/L (3.5-5.1); Sodium 133 mmol/L (136-145)
[2023-03-23 06:33] LABS: INR 1.49 (0.9-1.1); Prothrombin Time 15.7 seconds (10.1-12.5)
[2023-03-23 06:34] LABS: Alanine Aminotransferase 39 U/L (12-78); Albumin Level 3.6 g/dl (3.5-5.0); Albumin/Globulin Ratio 1.2 (1.1-1.8); Alkaline Phosphatase 134 U/L (38-126); Anion Gap 12.8 mEq/L (5-15); Aspartate Amino Transferase 96 U/L (14-36); Bilirubin,Total 0.5 mg/dl (0.2-1.3); Blood Urea Nitrogen 21 mg/dl (7-17); Calcium 8.3 mg/dl (8.4-10.2); Carbon Dioxide 31 mmol/L (22.0-30.0); Creatinine Clearance Estimated 58 mL/min (50-200); Estimated Glomerular Filt Rate 70 ml/min (>60); GFR (African American) 85 ML/MIN (>60); Globulin 2.9 g/dL (1.3-3.2); Glucose 153 mg/dl (74-100); Magnesium 1.9 mg/dl (1.6-2.3); Total Protein,Serum 6.5 g/dl (6.3-8.2)
--- NOTE | 2023-03-23 07:37 | EXP.ACUTE.PN ---
Subjective *Date: 03/23/23 *Time: 17:00 Interval history: Patient stable this morning. Going for surgery today. INR at goal less than 1.7 (1.5 this morning). Stable on 2 L nasal cannula oxygen. Denies chest pain, nausea, vomiting. Medical Exam Vital signs and Labs for Last 24 Hours: Vital Signs Temp Pulse Pulse Resp BP BP Pulse Ox 03/23/23 07:22 97.5 F L 94 H 17 140/77 95 03/23/23 04:00 98.2 F 94 H 18 145/92 H 97 03/22/23 23:55 97 03/22/23 20:00 97.9 F 96 H 18 152/70 H 97 03/22/23 15:46 97.8 F 99 H 18 141/82 H 97 03/22/23 13:49 100 H 16 148/87 H 97 03/22/23 12:50 98 F 103 H 16 146/89 H 97 03/22/23 12:45 98 F 104 H 16 160/85 H 97 03/22/23 12:30 98.0 F 113 H 16 159/84 H 97 03/22/23 12:15 98.7 F 104 H 16 159/98 H 97 03/22/23 12:00 98.7 F 102 H 16 97 03/22/23 11:55 98.7 F 101 H 16 157/98 H 97 03/22/23 11:50 98.7 F 103 H 16 156/87 H 97 03/22/23 11:50 98.7 F 103 H 16 156/87 H 97 03/22/23 11:39 98.8 F 106 H 16 140/88 97 03/22/23 08:00 97 03/22/23 07:40 97.5 F L 106 H 16 161/81 H 96 Intake and Output 03/22/23 03/22/23 03/23/23 15:59 23:59 07:59 Intake Total 880 / 1120 240 / 1120 0 / 0 Output Total 200 / 1100 300 / 1100 Balance 680 / 20 -60 / 20 0 / 0 Intake: Intake, Oral Amount 480 / 720 240 / 720 0 / 0 Intake, Total IV Amount 50 / 50 Magnesium Sulfate in Water 2 gm 50 / 50 In 50 ml @ 50 mls/hr IV ONCE ONE Rx#:[id number] Intake (Blood Product) Amt 350 / 350 Fresh Frozen Plasma Unit 350 / 350 [id number] Output: Output, Urine Amount 200 / 1100 300 / 1100 Other: Number of Unmeasured Voids 1 Weight 72.938 kg Patient Weight 03/23/23 23:59 Weight 72.938 kg Laboratory Results - last 24 hr 03/22/23 05:45: Blood Type Confirm AB Positive 03/22/23 07:30: Blood Type AB Positive 03/22/23 10:47: POC Glucose 145 H 03/22/23 13:50: Hgb 11.2 L, Hct 35.1 L 03/22/23 15:48: POC Glucose 132 H 03/22/23 17:15: PT 16.6 H, INR 1.58 H 03/22/23 20:30: POC Glucose 153 H 03/23/23 05:26: POC Glucose 161 H 03/23/23 05:55: WBC 4.3 L, RBC 4.00 L, Hgb 11.4 L, Hct 35.3 L, MCV 88.2, MCH 28.4, MCHC 32.3, RDW 14.4, Plt Count 161, MPV 8.2, Neut % (Auto) 69.2, Lymph % (Auto) 21.8, [place] % (Auto) 6.7, Eos % (Auto) 2.1, Baso % (Auto) 0.2, Neut # (Auto) 3.0, Lymph # (Auto) 0.9, [place] # (Auto) 0.3, Eos # (Auto) 0.1, Baso # (Auto) 0.0 03/23/23 05:55: PT 15.7 H, INR 1.49 H 03/23/23 05:55: Sodium 133 L, Potassium 3.8, Chloride 93 L, Carbon Dioxide 31 H, Anion Gap 12.8, BUN 21 H D, Creatinine 0.80, Estimated Creat Clear 58, Estimated GFR 70, Est GFR ( Amer) 85, Glucose 153 H, Calcium 8.3 L, Magnesium 1.9 D, Total Bilirubin 0.5, AST 96 H D, ALT 39 D, Alkaline Phosphatase 134 H, Total Protein 6.5, Albumin 3.6, Globulin 2.9, Albumin/Globulin Ratio 1.2 I & O for Labs for Last 24 Hours: Intake & Output 03/20/23 03/21/23 03/22/23 03/23/23 23:59 23:59 23:59 23:59 Intake Total 1120 / 1120 0 / 0 Output Total 1100 / 1100 Balance 0 / 0 Weight 71.469 kg 71.259 kg 72.938 kg Constitutional: Present no acute distress, average body habitus, chronically ill appearing and disheveled Head: Present atraumatic and normocephalic ENT: Present normal exam Neck: Present normal inspection Respiratory: Present prolonged expiratory phase, rhonchi, crackles and normal respiratory effort; Absent wheezes Cardiac: Present Reg Rate and Rhythm GI: Present soft and normal bowel sounds; Absent distention or tenderness Comment:: Right leg externally rotated and shorter than left. Neurovascularly intact in feet. Skin: Present intact; Absent erythema Neuro: Present Grossly Intact, alert, awake, oriented x 3 and moves all extremities Assessment and Plan *Assessment and plan (1) Closed fracture of right hip: Status: Acute Category: Medical Code(s):
--- NOTE | 2023-03-23 09:15 | PC.NURSE ---
Pt. off the floor for surgery.
--- NOTE | 2023-03-23 09:58 | EXP.ANES.CKL ---
[facility] Disclaimer: The information contained in this section may have been updated after the patient was seen, as this information can be updated by other users. Social History Smoking Status: Current every day smoker tobacco type: cigarettes packs per day: 2 second hand exposure: Yes alcohol intake: current substance use type: denies use current occupational status: retired Travel in the last 8 weeks: None household members: spouse and family housing: house current occupational exposures/hazards: No caffeine: Yes [facility] Anesthesia Checklist Patient Identification Patient Identification: Arm Band Structural Data Admitted From: Inpatient Planned Operative Procedure/s: Right Hip Hemiarthroplasty Consent for Planned Operative Procedure(s) Verified: Yes Verified Documents: Surgical Consent and History and Physical NPO Status Verified Time NPO: 00:00 Additional verifications Anesthesia Reactions: No Hx Blood Transfusions: No Blood Transfusion Reaction: No Airway Assessment C-Spine Mobility Assessed: Yes TMJ Mobility Assessed: Yes Dentition: Poor Dentition Neurological Assessment Level of Consciousness: Awake and Alert Anesthesia Plan Anesthesia Risk discussed: Yes Anesthesia Plan: Verified ASA Class: III Anesthesia Type: General
--- NOTE | 2023-03-23 13:29 | XR_ITS ---
FINAL REPORT CLINICAL HISTORY: md order in OR FINDINGS: 3 intraoperative views of the right femur were obtained. They are cross-table lateral views of the right femur. The exam is limited and apparently was performed during a right hip arthroplasty procedure. Femoral prosthesis with cerclage wires is noted. IMPRESSION: Postoperative changes as above. Reviewed, Interpreted and Dictated by Carlos Harris MD Transcribed by Nikki Velazco Authenticated and [facility]
--- NOTE | 2023-03-23 13:47 | SUR.OPER ---
1345- family updated of pt current status via bren darden
--- NOTE | 2023-03-23 14:39 | XR_ITS ---
FINAL REPORT CLINICAL HISTORY: post op FINDINGS: RIGHT HIP Two views of the right hip demonstrate no acute fracture or dislocation. The patient is post right hip arthroplasty with cerclage wires present. The visualized bony structures are well aligned. No soft tissue abnormality is seen. IMPRESSION: Status post right hip arthroplasty with cerclage wires present. Reviewed, Interpreted and Dictated by Carlos Harris MD Transcribed by Nikki Velazco Authenticated and [facility]
--- NOTE | 2023-03-23 14:43 | P.OP_ITS ---
Date of procedure: 03/23/23 Pre-op Diagnosis:: Right displaced femoral neck fracture Post-op Diagnosis:: Same Procedure performed:: Hemiarthroplasty right hip Surgeon:: Librado Mao DO CATEGORY DEVELOPMENT MANAGER:: Other Anesthesia: GETA Estimated blood loss (mL): 300 Operative findings:: Displaced femoral neck fracture Operative note:: Patient was identified preoperatively. Right hip marked yes my initials. Transported operative suite. Placed upon the operating bed. General anesthesia ministered airway secured. Then placed in a lateral position with the hip holders and all bony prominences well-padded. Right hip was then prepped and draped normal sterile fashion. Once prepped and draped final operative timeout performed to identify proper patient procedure and extremity. Everyone involved in case agreed. No counter indications to beginning. Did receive preoperative antibiotics. Marking pen was used to jana plan lateral incision over the hip. Skin knife was used incise through skin. IT band was cut in line with the femur. Charnley retractor placed. Standard anterior lateral modified Hardinge approach utilized abductors protected anteriorly within the Charnley capsule cut in line with a T fracture site encountered. A cleanup cut on the femoral neck performed. Bone removed. The femoral head was taken out from the acetabulum by piecemeal as the bone was brittle and difficult to remove in 1 piece. Articular cartilage was however maintained and proper size on the back table was performed size 44. Leg was brought anteriorly within the bag externally rotated femoral neck elevator placed opening canal finder was utilized followed by the curved broach. Then the broach set was utilized starting at size [address] up to size 13. Stat size 13 broach gave good fit and fill within the canal. Trial was removed copious irrigation performed final implant size [address]. At that time the proper size head 44 and -3 head. Was impacted into place and with traction and internal rotation hip was reduced at first attempt to reduce there is a small crack in the calcar. Therefore 2 cables were placed and cramped into place. Hip was then brought through range of motion and the x-ray was called to do flatplate x-rays of the femur to confirm no fracture at the distal part of the stem. Once this was confirmed hip was reduced taken through range of motion found to be stable internal/external rotation flexion extension. Copious irrigation repeated capsule closed with 0 Vicryl suture. Abductor repair with #5 Ethibond suture. IT band closed with a #1 strata fix. Deep laye rs closed 0 Vicryl subcutaneous with 2-0 Vicryl surgical clips in the skin for closure. Sterile dressing placed patient waken anesthesia taken recovery stable condition. Condition: stable Disposition: PACU Complications:: Interoperative fracture of calcar fixed with cables.
--- NOTE | 2023-03-23 14:44 | P.PNANES_ITS ---
[facility] Anesthesia Record Part I Anesthesia Record I Intake, IV Amount: 1,450 Estimated blood loss (mL): 350 Urine output (mL): 400 Blood Pressure: 154/68 SaO2: 93 Pulse Rate: 117 Respiratory Rate: 14 Temperature: 97.7 F Patient is:: Drowsy and Stable Stable to PACU at:: 14:38
[2023-03-23 15:28] LABS: POC Glucose,Bedside 185 (70-110)
--- NOTE | 2023-03-23 15:50 | PC.NURSE ---
pt c/o 8 out 10 right hip pain. deejay faustin
[2023-03-23 16:15] LABS: POC Glucose,Bedside 210 (70-110)
[2023-03-23 16:20] LABS: Microscopic,Cath URINE MICROSCOPIC (MICROSCOPIC)
[2023-03-23 16:28] LABS: INR 1.51 (0.9-1.1); Prothrombin Time 15.9 seconds (10.1-12.5)
--- NOTE | 2023-03-23 16:35 | PC.NURSE ---
catheter removed at [id number]
[2023-03-23 18:44] LABS: Appearance,Urine/Cath CLEAR (Clear); Bilirubin,Cath Negative (Negative); Blood, Urine/Cath Negative (Negative); Color,Urine/Cath YELLOW (Yellow); Glucose,Urine/Cath (UA) Negative (Negative); Ketones,Urine/Cath Negative (Negative); Leukocyte Esterase,Cath Negative (Negative); Nitrate,Cath Negative (Negative); PH,Urine/Cath 5.5 (5.0-8.5); Protein,Urine/Cath Negative (Negative); Urobilinogen,Cath 0.2 EU/dl (0.2)
--- NOTE | 2023-03-23 18:51 | PC.NURSE ---
sats dropping to 79-83 while sleeping, increased from 2L NC to 2.5L NC and educated pt to not mouth breath, to take deep breaths in nose and out mouth
[2023-03-23 19:03] LABS: Bacteria,Urine/Cath 1+ /lpf; RBC,Urine/Cath Occasional # /hpf (0-3); WBC,Urine/Cath Occasional #/hpf (0-3)
[2023-03-23 20:05] LABS: POC Glucose,Bedside 207 (70-110)
[2023-03-24] VITALS (7 sets, daily range): BP systolic 130–163; BP diastolic 65–88; PULSE 102–115; RESP 18–22; TEMP 36.3–37.1; O2SAT 95–98; BMI 28.5
[2023-03-24 03:08] LABS: POC Glucose,Bedside 158 (70-110)
[2023-03-24 06:45] LABS: Basophils % 0.2 % (0.1-2.0); Eosinophils % 0.7 % (0.1-12.0); Hemoglobin 10.8 g/dL (12.2-16.2); Lymphocytes # 0.6 K/mm3 (0.7-4.5); Lymphocytes % 10.8 % (10-50); Mean Corpuscular HGB Conc 32.9 g/dL (31.8-35.4); Mean Corpuscular Hemoglobin 29.1 pg (27.0-31.2); Mean Corpuscular Volume 88.6 fl (81-99); Mean Platelet Volume 8.2 fl (7.4-10.4); Monocytes # 0.4 K/mm3 (0.1-1.0); Monocytes % 7.3 % (1.7-9.3); Neutrophils # 4.3 K/mm3 (1.8-7.8); Platelet Count 199 K/mm3 (142-424); Red Blood Count 3.73 M/mm3 (4.20-5.40); Red Cell Distribution Width 14.6 % (11.5-17.5); White Blood Count 5.3 K/mm3 (4.8-10.8)
[2023-03-24 06:45] LABS: POC Glucose,Bedside 197 (70-110)
[2023-03-24 06:52] LABS: INR 2.19 (0.9-1.1); Prothrombin Time 22.6 seconds (10.1-12.5)
--- NOTE | 2023-03-24 07:51 | SW/DCPLANNER ---
Addendum entered by Yael Mercado 03/25/23 11:39: Patient will discharge to [facility] today. I have updated Laure nelson/ VICTOR M. Addendum entered by Yael Mercado 03/24/23 14:16: Per Laure DOW this patient has been approved via insurance for admission at [facility] tomorrow 03/25/23. Original Note: I spoke with this patient regarding plans once medically stable for discharge. PT/OT will evaluate patient this AM. Patient stated that if placement is recommended she would prefer to discharge to [facility]. I will fax patient information once PT/OT evaluation is completed if placement is recomended. Discharge date is unknown at this time.
--- NOTE | 2023-03-24 08:18 | PC.NURSE ---
pt c/o right hip pain and neck pain 7 out 10. gave 5mg oxycodone. sister at bedside
--- NOTE | 2023-03-24 08:54 | PC.NURSE ---
COURTESY TECH NOTE; ROUNDED ON PT, PT DENIED NEED FOR DRINK, ASSISTANCE WITH RESTROOM, AND NEED TO REPOSITION. CALL LIGHT WITHIN REACH, NO FURTHER REQUESTS AT THIS TIME SHARONDA PYLE
--- NOTE | 2023-03-24 10:01 | EXP.ANES.II ---
[facility] Anesthesia Record Part II Anesthesia Record Part II Discharge Time: 15:08 Destination: Medical Surgical Department PACU nurse assessment reviewed?: Yes Patient Condition:: Good Anesthesia Complications:: None Swallowing reflex intact?: Yes Cyanosis?: No Blood Pressure: 130/65 Pulse Rate: 115 Temperature: 97.7 F Mental Status: Alert & Oriented Pain level:: 0 Nausea and/or vomitting:: None Intake, IV Amount: 0
--- NOTE | 2023-03-24 10:13 | EXP.ORTH.PN ---
Subjective *Date: 03/24/23 *Time: 10:13 Interval history: Patient up in the chair today. Having normal amount of pain following hemiarthroplasty right hip. Ortho Exam (Inpt) Vital signs and Labs for Last 24 Hours: Temp Pulse Resp BP Pulse Ox 97.7 F 102 H 20 147/76 H 95 03/24/23 08:00 03/24/23 08:00 03/24/23 08:00 03/24/23 08:00 03/24/23 08:00 Laboratory Results - last 24 hr 03/23/23 10:45: Urine Color Yellow, Urine Appearance Clear, Urine pH 5.5, Ur Specific [place] 1.020, Urine Protein Negative, Urine Glucose (UA) Negative, Urine Ketones Negative, Urine Blood Negative, Urine Nitrate Negative, Urine Bilirubin Negative, Urine Urobilinogen 0.2, Ur Leukocyte Esterase Negative, Urine RBC Occasional, Urine WBC Occasional, Ur Squamous Epith Cells 5-10, Urine Bacteria 1+ 03/23/23 15:06: POC Glucose 185 H 03/23/23 15:35: PT 15.9 H, INR 1.51 H 03/23/23 16:06: POC Glucose 210 H 03/23/23 19:50: POC Glucose 207 H 03/24/23 03:01: POC Glucose 158 H 03/24/23 06:00: WBC 5.3, RBC 3.73 L, Hgb 10.8 L, Hct 33.0 L, MCV 88.6, MCH 29.1, MCHC 32.9, RDW 14.6, Plt Count 199, MPV 8.2, Neut % (Auto) 81.0 H, Lymph % (Auto) 10.8, [place] % (Auto) 7.3, Eos % (Auto) 0.7, Baso % (Auto) 0.2, Neut # (Auto) 4.3, Lymph # (Auto) 0.6 L, [place] # (Auto) 0.4, Eos # (Auto) 0.0, Baso # (Auto) 0.0 03/24/23 06:00: Sodium 129 L, Potassium 4.3, Chloride 89 L, Carbon Dioxide 30, Anion Gap 14.3, BUN 17, Creatinine 0.80, Estimated Creat Clear 58, Estimated GFR 70, Est GFR ( Amer) 85, Glucose 175 H, Calcium 7.8 L 03/24/23 06:00: PT 22.6 H, INR 2.19 H 03/24/23 06:34: POC Glucose 197 H I & O for Labs for Last 24 Hours: Intake & Output 03/21/23 03/22/23 03/23/23 03/24/23 23:59 23:59 23:59 23:59 Intake Total 1120 / 1120 1810 / 1860 170 / 170 Output Total 1100 / 1100 1000 / 1000 200 / 200 Balance 810 / 860 -30 / -30 Weight 157 lb 9 oz 157 lb 1.6 oz 160 lb 12.8 oz 160 lb 12.812 oz Additional findings:: Right hip: Surgical dressing in place. No evidence of drainage or infection. Wiggles toes. Grossly neurovascular intact Assessment and Plan *Assessment and plan (1) Displaced fracture of right femoral neck: Problem Comment: Status post hemiarthroplasty Status: Acute Category: Medical Code(s): S72.001A - Fracture of unspecified part of neck of right femur, initial encounter for closed fracture Plan Continue work with therapy. Patient is appropriate candidate for rehabilitation. Rolling walker weightbearing as tolerated. Return to clinic 2 weeks for staple removal upon discharge to rehab.
[2023-03-24 11:02] LABS: POC Glucose,Bedside 246 (70-110)
--- NOTE | 2023-03-24 11:07 | HMH.OTEV ---
OT Inpatient Evaluation Rehab OT IP Evaluation Start: 03/23/23 16:58 Freq: ONCE Status: Active Protocol: Document 03/24/23 10:51 RAFIQ (Rec: 03/24/23 11:06 RAFIQ [id number]) Rehab OT IP Assessment Subjective History 72 year old female referred to skilled OP OT services for s/ p Right displaced femoral neck fracture R hip fx. Patient underwent Hemiarthroplasty right hip on 03/23/23. Displaced femoral neck fracture Patient lives in 1 story home with 2-3 LEBR[address] and ramp with , sister and grandchild . Subjective It hurts. Patient required encouragement to perform OOB activity tasks this date. PCP and surgeon consulted with patient re: recovery rehab process. Instructed Patient on proper hand and foot placement to complete supine->sit @ EOB requiring Max A X2. Instructed Patient on SPT with usage of RW requiring Max A x2. Patient demonstrated poor dynamic standing balance and posture during transition transfering. Patient is a high fall risk and stated that she had multiple falls at home. Independent with ADLs and fx'l mobility prior to falling. Objective Patient Orientation Person,Place,Name,Age,Birthday ,Month,Year Upper Extremity Gross ROM WFL Bed Mobility bed mobility - supine/sit Assist Level Maximum x 2 (75% assist) Transfer Training Sit/Stand/Pivot Transfer Assist Level Maximum x 2 (75% assist) Chair Transfer Ability Maximum x 2 (75% assist) Chair Transfer Technique Sit to/from Ambulatory Chair Transfer Assistive Devices Rolling Walker Rehab OT IP prob,goals,plan Problems Date of Evaluation: 03/24/23 OT IP Problems Bed Mobility,Transfers,Balance ,Self care,Safety Rehab Potential Rehab Potential Good Equipment Needs Assistive Devices Rolling / Wheeled Walker Plan OT intervention Plan
[2023-03-24 11:55] LABS: Anion Gap 14.3 mEq/L (5-15); Blood Urea Nitrogen 17 mg/dl (7-17); Calcium 7.8 mg/dl (8.4-10.2); Carbon Dioxide 30 mmol/L (22.0-30.0); Chloride 89 mmol/L (98-107); Creatinine Clearance Estimated 58 mL/min (50-200); Estimated Glomerular Filt Rate 70 ml/min (>60); GFR (African American) 85 ML/MIN (>60); Glucose 175 mg/dl (74-100); Potassium 4.3 mmoL/L (3.5-5.1); Sodium 129 mmol/L (136-145)
[2023-03-24 12:03] LABS: Alanine Aminotransferase 37 U/L (12-78); Albumin Level 3.4 g/dl (3.5-5.0); Albumin/Globulin Ratio 1.1 (1.1-1.8); Alkaline Phosphatase 177 U/L (38-126); Aspartate Amino Transferase 103 U/L (14-36); Bilirubin,Total 0.6 mg/dl (0.2-1.3); Globulin 3.1 g/dL (1.3-3.2); Total Protein,Serum 6.5 g/dl (6.3-8.2)
--- NOTE | 2023-03-24 12:22 | HMH.PTEV ---
Physical Therapy Evaluation Rehab PT IP Evaluation Start: 03/23/23 14:50 Freq: ONCE Status: Active Protocol: Document 03/24/23 12:15 PHORNE (Rec: 03/24/23 12:22 PHORNE [id number]) Subjective/History History History 72 yowf adm to [facility] after ground level fall with R hip fx, now S/P R hip WIGGINS. She has hx of HTN, DM, DVT. She has family assist available, generally ambulates without AD , and has a baseline tremor. Subjective Subjective She c/o significant pain in the R LE and requires significant encouragement to agree to mobility assessment. Rehab PT IP Eval Objective Appearance Patient Behavior Appropriate Patient Orientation Person,Place,Time Difficulty following instructions none Speech Pattern Clear Ambulation Patient Able to Ambulate No Balance Ability to Arise Unable Sitting Balance Leans or slides in chair Standing Balance Unsteady Dynamic Sitting Balance Ability Fair Dynamic Standing Balance Ability Poor Transfers Bed Transfer Ability Maximum x 2 (75% assist) Chair Transfer Ability Moderate x 2 (50% assist) Sit to Stand Bed Transfer Ability Moderate x 2 (50% assist) Sit to Stand Chair Transfer Ability Moderate x 2 (50% assist) ROM All Extremities PT ROM Status WFL Rehab PT IP prob,goals,plan Problems Date of Evaluation: 03/24/23 PT IP Problems Bed Mobility,Transfers,Gait Rehab Potential Rehab Potential Good Plan PT Intervention Plan Bed Mobility,Transfers,Gait, Therapeutic Exercise PT Plan Frequency BID Duration LOS Discharge Goals Bed Transfer Ability Moderate x 2 (50% assist) Sit to Stand Chair Transfer Ability Minimal x 2 (25% assist) Ambulation Assistive Device Rolling Walker Ambulation Distance (feet) 5 Discharge Plan PT Discharge Plan Pt is currently most appropriate for rehab placement once medically stable for d/c. G -code Required No Eval Complexity Eval Charge Codes 71317 - High Complexity PHYSICIAN CERTIFICATION: I certify the specified therapy services for Mone Stacy are required, authorized, and reviewed every 30 days.
--- NOTE | 2023-03-24 13:51 | EXP.ACUTE.PN ---
Subjective *Date: 03/24/23 *Time: 18:25 Interval history: Continuing to have pain this morning. States pain is worse than before surgery. Stable on 2 L nasal cannula oxygen. Urine appears quite concentrated and estelle in Vacutainer. Poor p.o. intake. INR therapeutic this morning at 2.19. PT and OT working with her today. Pending acceptance for placement. Denies any chest pain or shortness of breath beyond baseline. Medical Exam Vital signs and Labs for Last 24 Hours: Vital Signs Temp Pulse Pulse Resp BP BP Pulse Ox 03/24/23 12:00 98.4 F 102 H 20 144/83 H 97 03/24/23 08:00 95 03/24/23 08:00 97.7 F 102 H 20 147/76 H 95 03/24/23 04:00 98.0 F 102 H 20 140/87 98 03/23/23 20:00 113 H 03/23/23 22:00 110 H 16 139/66 95 03/23/23 21:00 109 H 16 150/68 H 95 03/23/23 20:00 113 H 18 150/66 H 97 03/23/23 19:00 111 H 18 134/57 L 98 03/24/23 00:00 97.4 F L 104 H 20 149/74 H 97 03/23/23 18:00 114 H 16 136/62 97 03/23/23 17:30 108 H 18 154/80 H 98 03/23/23 17:00 97.9 F 113 H 18 143/74 H 96 03/23/23 16:30 98.2 F 111 H 18 143/78 H 95 03/23/23 16:00 98.1 F 111 H 18 130/62 95 03/23/23 15:08 115 H 17 130/65 95 03/23/23 14:58 118 H 16 126/57 L 94 L 03/23/23 14:48 119 H 15 148/60 H 95 03/23/23 14:38 97.7 F 117 H 15 154/68 H 93 L 03/23/23 15:30 97.6 F 121 H 18 149/71 H 95 03/23/23 15:45 97.8 F 114 H 18 143/67 H 96 03/23/23 15:15 98.2 F 115 H 18 127/70 03/23/23 14:46 97.7 F 117 H 14 154/68 H Intake and Output 03/23/23 03/24/23 03/24/23 23:59 07:59 15:59 Intake Total 360 / 1860 50 / 410 360 / 410 Output Total 0 / 1000 200 / 200 0 / 200 Balance 360 / 860 -150 / 210 360 / 210 Intake: Intake, Oral Amount 360 / 360 360 / 360 Intake, Total IV Amount 50 / 50 0 / 50 Cefazolin Sodium 1 gm In 0.9 % 50 / 50 Sodium Chloride 50 ml @ 100 mls /hr IV Q6H [facility] Rx#:[id number] Output: Output, Urine Amount 0 / 1000 200 / 200 0 / 200 Other: Number of Unmeasured Voids 0 0 0 Weight 72.938 kg 72.9 kg Patient Weight 03/24/23 23:59 Weight 72.9 kg Laboratory Results - last 24 hr 03/23/23 10:45: Urine Color Yellow, Urine Appearance Clear, Urine pH 5.5, Ur Specific [place] 1.020, Urine Protein Negative, Urine Glucose (UA) Negative, Urine Ketones Negative, Urine Blood Negative, Urine Nitrate Negative, Urine Bilirubin Negative, Urine Urobilinogen 0.2, Ur Leukocyte Esterase Negative, Urine RBC Occasional, Urine WBC Occasional, Ur Squamous Epith Cells 5-10, Urine Bacteria 1+ 03/23/23 15:06: POC Glucose 185 H 03/23/23 15:35: PT 15.9 H, INR 1.51 H 03/23/23 16:06: POC Glucose 210 H 03/23/23 19:50: POC Glucose 207 H 03/24/23 03:01: POC Glucose 158 H 03/24/23 06:00: WBC 5.3, RBC 3.73 L, Hgb 10.8 L, Hct 33.0 L, MCV 88.6, MCH 29.1, MCHC 32.9, RDW 14.6, Plt Count 199, MPV 8.2, Neut % (Auto) 81.0 H, Lymph % (Auto) 10.8, [place] % (Auto) 7.3, Eos % (Auto) 0.7, Baso % (Auto) 0.2, Neut # (Auto) 4.3, Lymph # (Auto) 0.6 L, [place] # (Auto) 0.4, Eos # (Auto) 0.0, Baso # (Auto) 0.0 03/24/23 06:00: Sodium Cancelled, Potassium Cancelled, Chloride Cancelled, Carbon Dioxide Cancelled, Anion Gap Cancelled, BUN Cancelled, Creatinine Cancelled, Estimated Creat Clear Cancelled, Estimated GFR Cancelled, Est GFR ( Amer) Cancelled, Glucose Cancelled, Calcium Cancelled 03/24/23 06:00: PT 22.6 H, INR 2.19 H 03/24/23 06:00: Sodium 129 L, Potassium 4.3, Chloride 89 L, Carbon Dioxide 30, Anion Gap 14.3, BUN 17, Creatinine 0.80, Estimated Creat Clear 58, Estimated GFR 70, Est GFR ( Amer) 85, Glucose 175 H, Calcium 7.8 L, Total Bilirubin 0.6, AST 103 H, ALT 37, Alkaline Phosphatase 177 H, Total Protein 6.5, Albumin 3.4 L, Globulin 3.1, Albumin/Globulin Ratio 1.1 03/24/23 06:34: POC Glucose 197 H 03/24/23 10:50: POC Glucose 246 H I & O for Labs for Last 24 Hours: Intake & Output
[2023-03-24 15:49] LABS: POC Glucose,Bedside 136 (70-110)
--- NOTE | 2023-03-24 16:34 | PC.NURSE ---
22 in LFA SL. 1L NC. purewic. dimished lung sounds. weak pedal pulses she recieved a 500 ml bolus of LR. norco was dc'd and oxycodone was scheduled, with a prn oxycodone for breakthrough pain. pt has c/o neck and right hip pain. increased pain with movement. up to chair, sat up for for roughly 60 minutes, used a walker and gait belt to transfer back to bed. family at bedside. call light within reach, bed locked and in lowest position.
[2023-03-24 20:25] LABS: POC Glucose,Bedside 154 (70-110)
[2023-03-25] VITALS: BP 142/78; PULSE 109; RESP 20; TEMP 37.3; O2SAT 96
[2023-03-25 04:00] VITALS: BP 145/58; PULSE 112; RESP 22; TEMP 37.1; O2SAT 92; BMI 30.2
[2023-03-25 05:56] LABS: POC Glucose,Bedside 155 (70-110)
[2023-03-25 06:29] LABS: Eosinophils % 0.4 % (0.1-12.0); Hematocrit 31.1 % (37.0-47.0); Hemoglobin 10.1 g/dL (12.2-16.2); Lymphocytes # 0.6 K/mm3 (0.7-4.5); Lymphocytes % 11.1 % (10-50); Mean Corpuscular HGB Conc 32.6 g/dL (31.8-35.4); Mean Corpuscular Volume 88.9 fl (81-99); Mean Platelet Volume 8.3 fl (7.4-10.4); Monocytes # 0.3 K/mm3 (0.1-1.0); Monocytes % 5.6 % (1.7-9.3); Neutrophils # 4.6 K/mm3 (1.8-7.8); Neutrophils % 82.9 % (37.0-80.0); Platelet Count 194 K/mm3 (142-424); Red Cell Distribution Width 14.4 % (11.5-17.5); White Blood Count 5.6 K/mm3 (4.8-10.8)
[2023-03-25 06:33] LABS: Prothrombin Time 24.7 seconds (10.1-12.5)
[2023-03-25 06:55] LABS: Chloride 88 mmol/L (98-107); Potassium 4.4 mmoL/L (3.5-5.1); Sodium 128 mmol/L (136-145)
[2023-03-25 06:57] LABS: Alanine Aminotransferase 21 U/L (12-78); Aspartate Amino Transferase 47 U/L (14-36); Blood Urea Nitrogen 16 mg/dl (7-17); Creatinine Clearance Estimated 61 mL/min (50-200); Estimated Glomerular Filt Rate 61 ml/min (>60); GFR (African American) 74 ML/MIN (>60)
[2023-03-25 06:58] LABS: Albumin Level 3.1 g/dl (3.5-5.0); Alkaline Phosphatase 143 U/L (38-126); Anion Gap 13.4 mEq/L (5-15); Bilirubin,Total 0.4 mg/dl (0.2-1.3); Calcium 7.8 mg/dl (8.4-10.2); Carbon Dioxide 31 mmol/L (22.0-30.0); Globulin 3.2 g/dL (1.3-3.2); Glucose 141 mg/dl (74-100); Total Protein,Serum 6.3 g/dl (6.3-8.2)
[2023-03-25 07:41] VITALS: BP 150/72; PULSE 122; RESP 18; TEMP 37; O2SAT 91
--- NOTE | 2023-03-25 08:20 | P.PN_ITS ---
Subjective *Date: 03/25/23 *Time: 08:20 Interval history: The patient is saturating 91% on RA this morning and has been tachycardic with HR 110-120. Hgb is 10.1, yesterday it was 10.8. INR is 2.4 na is 128, yesterday it was 129 Exam Data for Last 24 hours Vital signs and Labs for Last 24 Hours: Temp Pulse Resp BP Pulse Ox 98.6 F 122 H 18 150/72 H 91 L 03/25/23 07:41 03/25/23 07:41 03/25/23 07:41 03/25/23 07:41 03/25/23 07:41 Laboratory Results - last 24 hr 03/24/23 06:00: Sodium Cancelled, Potassium Cancelled, Chloride Cancelled, Carbon Dioxide Cancelled, Anion Gap Cancelled, BUN Cancelled, Creatinine Cancelled, Estimated Creat Clear Cancelled, Estimated GFR Cancelled, Est GFR ( Amer) Cancelled, Glucose Cancelled, Calcium Cancelled 03/24/23 06:00: Sodium 129 L, Potassium 4.3, Chloride 89 L, Carbon Dioxide 30, Anion Gap 14.3, BUN 17, Creatinine 0.80, Estimated Creat Clear 58, Estimated GFR 70, Est GFR ( Amer) 85, Glucose 175 H, Calcium 7.8 L, Total Bilirubin 0.6, AST 103 H, ALT 37, Alkaline Phosphatase 177 H, Total Protein 6.5, Albumin 3.4 L, Globulin 3.1, Albumin/Globulin Ratio 1.1 03/24/23 10:50: POC Glucose 246 H 03/24/23 15:40: POC Glucose 136 H 03/24/23 20:13: POC Glucose 154 H 03/25/23 05:22: POC Glucose 155 H 03/25/23 05:42: WBC 5.6, RBC 3.50 L, Hgb 10.1 L, Hct 31.1 L, MCV 88.9, MCH 29.0, MCHC 32.6, RDW 14.4, Plt Count 194, MPV 8.3, Neut % (Auto) 82.9 H, Lymph % (Auto) 11.1, [place] % (Auto) 5.6, Eos % (Auto) 0.4, Baso % (Auto) 0.0 L, Neut # (Auto) 4.6, Lymph # (Auto) 0.6 L, [place] # (Auto) 0.3, Eos # (Auto) 0.0, Baso # (Auto) 0.0 03/25/23 05:42: PT 24.7 H, INR 2.40 H 03/25/23 05:42: Sodium 128 L, Potassium 4.4, Chloride 88 L, Carbon Dioxide 31 H, Anion Gap 13.4, BUN 16, Creatinine 0.90, Estimated Creat Clear 61, Estimated GFR 61, Est GFR ( Amer) 74, Glucose 141 H, Calcium 7.8 L, Total Bilirubin 0.4, AST 47 H D, ALT 21 D, Alkaline Phosphatase 143 H, Total Protein 6.3, Albumin 3.1 L, Globulin 3.2, Albumin/Globulin Ratio 1.0 L I & O for Last 24 hours: Intake & Output 03/22/23 03/23/23 03/24/23 03/25/23 23:59 23:59 23:59 23:59 Intake Total 1120 / 1120 1810 / 1860 1390 / 1830 800 / 800 Output Total 1100 / 1100 1000 / 1000 900 / 900 300 / 300 Balance 810 / 860 490 / 930 500 / 500 Weight 71.259 kg 72.938 kg 72.9 kg 77.309 kg Assessment and Plan *Assessment and plan Plan Mone Stacy is a 72 year old female with a past medical history of hypertension, type 2 diabetes mellitus, hyperlipidemia, gout, DVT, anxiety and cigarette nicotine dependence. She presented with R hip pain after a mechanical ground level fall and was admitted on 03/21 with a right displaced femoral neck fracture. She had a right hip hemiarthroplasty on 03/21. Orthopedic surgery recommended weight bearing as tolerated and follow up in 2 weeks. PT/OT recommended placement. Hospital course was complicated by hypoxia which is thought to be chronic and due to COPD. Closed right hip facture -continue treating pain as needed -continue pt/ot Chronic hypoxic respiratory failure -possibly due to underlying COPD -continue Duonebs q6h and supplemental oxygen as needed. -will need to establish care with Pulmonology in the outpatient setting Hyponatremia -continue to monitor Anemia -continue to monitor DVT ppx: warfarin DNR Diabetic diet
--- NOTE | 2023-03-25 09:01 | PC.NURSE ---
COURTESY TECH NOTE; ROUNDED ON PT 0830, PT DENIED NEED FOR ASSISTANCE WITH RESTROOM, OR DRINK. ASSISTED PT TO REPOSITION IN BED. CALL LIGHT WITHIN REACH, NO FURTHER REQUESTS AT THIS TIME SHARONDA PYLE
--- NOTE | 2023-03-25 10:35 | PC.NURSE ---
pt nauseous with ambulation dr bakari lara'd to give zofran dose early.
[2023-03-25 11:10] LABS: POC Glucose,Bedside 168 (70-110)
--- NOTE | 2023-03-25 12:13 | EXP.DC.SUM ---
General Admission date:: 03/21/23 Discharge date: 03/25/23 HPI HPI HPI: 72-year-old female presenting to the emergency department with head injury, right hip pain after a fall.? PMHX of HTN, DM 2, DVT, and smoking. Fall happened on Tuesday, 2 days ago.? She was in her yard, walking up a small slope when she fell backwards.? She believes she landed on her buttocks and struck the back of her head.? She was unable to get up on her own, required help from family members.? She had pain located in her right hip and low back.? Initially it was sharp.? Now it is constant and achy.? She struck the back of her head, feels like she has a bruise.? No loss of consciousness.? No vision changes.? She takes Coumadin.? Denies chest pain, abdominal pain, nausea, vomiting, shortness of breath.? Tried taking her tramadol yesterday without much relief. ED physician discussed case with Hospitalist team and consulted ortho surgery. CT revealed comminuted subcapital right femoral neck fracture. Patient will be admitted for medical management. Hospital Course Hospital Course Hospital Course: Mone Stacy is a 72 year old female with a past medical history of hypertension, type 2 diabetes mellitus, hyperlipidemia, gout, DVT, anxiety and cigarette nicotine dependence. She presented with R hip pain after a mechanical ground level fall and was admitted on 03/21 with a right displaced femoral neck fracture. She had a right hip hemiarthroplasty on 03/21. Orthopedic surgery recommended weight bearing as tolerated and follow up in 2 weeks. PT/OT recommended placement. Hospital course was complicated by hypoxia which is thought to be chronic and due to COPD. She was counseled on smoking cessation but was not open to quitting and at this time does not want to establish care with Pulmonology. By the day of discharge she saturated 91% on room air while at rest. On the day of discharge her sodium level was 128 and the day prior it was 129. On the day of discharge her Hgb was 10.1 and the day prior it was 10.8. She will be discharging to [facility] for rehab. Exam Data for Last 24 hours Vital signs and Labs for Last 24 Hours: Temp Pulse Resp BP Pulse Ox 98.6 F 122 H 18 150/72 H 91 L 03/25/23 07:41 03/25/23 07:41 03/25/23 07:41 03/25/23 07:41 03/25/23 07:41 Laboratory Results - last 24 hr 03/24/23 15:40: POC Glucose 136 H 03/24/23 20:13: POC Glucose 154 H 03/25/23 05:22: POC Glucose 155 H 03/25/23 05:42: WBC 5.6, RBC 3.50 L, Hgb 10.1 L, Hct 31.1 L, MCV 88.9, MCH 29.0, MCHC 32.6, RDW 14.4, Plt Count 194, MPV 8.3, Neut % (Auto) 82.9 H, Lymph % (Auto) 11.1, [place] % (Auto) 5.6, Eos % (Auto) 0.4, Baso % (Auto) 0.0 L, Neut # (Auto) 4.6, Lymph # (Auto) 0.6 L, [place] # (Auto) 0.3, Eos # (Auto) 0.0, Baso # (Auto) 0.0 03/25/23 05:42: PT 24.7 H, INR 2.40 H 03/25/23 05:42: Sodium 128 L, Potassium 4.4, Chloride 88 L, Carbon Dioxide 31 H, Anion Gap 13.4, BUN 16, Creatinine 0.90, Estimated Creat Clear 61, Estimated GFR 61, Est GFR ( Amer) 74, Glucose 141 H, Calcium 7.8 L, Total Bilirubin 0.4, AST 47 H D, ALT 21 D, Alkaline Phosphatase 143 H, Total Protein 6.3, Albumin 3.1 L, Globulin 3.2, Albumin/Globulin Ratio 1.0 L 03/25/23 10:55: POC Glucose 168 H I & O for Last 24 hours: Intake & Output 03/22/23 03/23/23 03/24/23 03/25/23 23:59 23:59 23:59 23:59 Intake Total 1120 / 1120 1810 / 1860 1390 / 1830 800 / 800 Output Total 1100 / 1100 1000 / 1000 900 / 900 300 / 300 Balance 810 / 860 490 / 930 500 / 500 Weight 71.259 kg 72.938 kg 72.9 kg 77.309 kg Constitutional Constitutional: no acute distress *Routine HEENT Exam Head: Present normocephalic Eye: Present EOMI and PERRL ENT: Present mucous membranes moist *Routine Neck Exam Neck: Present supple; Absent lymphadenopathy *Routine Respiratory Exam Respiratory: Present CTA bilaterally *Routine Cardiovascular Exam Cardiovascular: Present RRR *Routine Abdominal Exam Abdominal: Present soft and normoactive bow
--- NOTE | 2023-03-27 15:09 | P.EN_ITS ---
Called by rn at [facility]... Patient's home gabapentin had not been sent on dc.... she is on our service at - so I have sent her rx to [facility].
--- NOTE | 2023-03-28 14:33 | CARE MANAGER ---
Attempted post-discharge phone interview with MD, no answer after being transferred twice.
== END 2023-03-25 13:40 | DRG 522 ==
LOC: ER 15:44 → 2ND 17:15
PROVIDERS: Nurse Practitioner Critical Care Medicine; Orthopaedic Surgery; Admitting Provider Internal Medicine Adolescent Medicine; Emergency Provider Emergency Medicine; PCP Nurse Practitioner Family; Visit Provider Internal Medicine Adolescent Medicine
PROC: 0SRR0JZ Replacement of Right Hip Joint, Femoral Surface with Synthetic Substitute, Open Approach (ICD-10-PCS; principal; 2023-03-23 09:30)
DX: S72.001A Fracture of unspecified part of neck of right femur, initial encounter for closed fracture (principal); W19.XXXA Unspecified fall, initial encounter; E11.9 Type 2 diabetes mellitus without complications; Z79.01 Long term (current) use of anticoagulants; Z79.84 Long term (current) use of oral hypoglycemic drugs; F17.210 Nicotine dependence, cigarettes, uncomplicated; Z86.718 Personal history of other venous thrombosis and embolism; E78.2 Mixed hyperlipidemia; J44.9 Chronic obstructive pulmonary disease, unspecified; M10.9 Gout, unspecified; R25.1 Tremor, unspecified; Z66 Do not resuscitate; Z71.6 Tobacco abuse counseling
CPT/HCPCS: 27236; 36415; 70450; 71045; 72100; 72125; 72192; 73502; 73551; 80053; 81001; 82962; 83036; 83735; 85014; 85018; 85025; 85610; 86900; 86901; 87636; 93005; 97110; 97163; 97165; 97530; 99285; C1776; C9803; J2405; J3475; P9017; U0003; U0005

== ENCOUNTER 2023-05-24 13:03 | Outpatient (CLI) | payer MEDICARE, SELFPAY ==
[2023-05-24 13:32] LABS: PHA INR Fingerstick 3.7 (0.9-1.1)
[2023-05-24 18:17] LABS: Alanine Aminotransferase 20 U/L (12-78); Albumin/Globulin Ratio 1.4 (1.1-1.8); Alkaline Phosphatase 141 U/L (38-126); Anion Gap 14.8 mEq/L (5-15); Aspartate Amino Transferase 30 U/L (14-36); Blood Urea Nitrogen 18 mg/dl (7-17); Calcium 9.2 mg/dl (8.4-10.2); Carbon Dioxide 26 mmol/L (22.0-30.0); Chloride 102 mmol/L (98-107); Chol/HDL Ratio 2.8 (1-3.5); Cholesterol 145 mg/dl (140-200); Estimated Glomerular Filt Rate 70 ml/min (>60); GFR (African American) 85 ML/MIN (>60); Globulin 2.8 g/dL (1.3-3.2); Glucose 118 mg/dl (74-100); HDL Cholesterol 52 mg/dl (40-60); Potassium 4.8 mmoL/L (3.5-5.1); Sodium 138 mmol/L (136-145); Total Protein,Serum 6.8 g/dl (6.3-8.2); Triglycerides 171 mg/dl (30-150); VLDL Cholesterol 34 mg/dL (0-40)
[2023-05-24 18:30] LABS: Direct LDL Cholesterol 60.44 mg/dL (100-129)
[2023-05-24 18:31] LABS: Bilirubin,Total 0.1 mg/dl (0.2-1.3)
[2023-05-24 18:48] LABS: Thyroid Stimulating Hormone 1.63 uIU/mL (0.465-4.68)
[2023-05-24 19:46] LABS: Hemoglobin A1C 7.3 % (4.0-6.0)
== END 2023-05-24 13:33 ==
LOC: ACC 13:05
PROVIDERS: PCP Nurse Practitioner Family; Visit Provider Nurse Practitioner Family
DX: Z79.01 Long term (current) use of anticoagulants (principal); E11.40 Type 2 diabetes mellitus with diabetic neuropathy, unspecified; E78.5 Hyperlipidemia, unspecified; Z51.81 Encounter for therapeutic drug level monitoring; Z79.84 Long term (current) use of oral hypoglycemic drugs
CPT/HCPCS: 36415; 80053; 80061; 83036; 84443; 85610; 99211; G0463

== ENCOUNTER 2023-06-06 13:22 | Outpatient (CLI) | payer MEDICARE, SELFPAY ==
[2023-06-06 15:05] LABS: PHA INR Fingerstick 2.7 (0.9-1.1)
== END 2023-06-06 16:06 ==
LOC: ACC 13:23
PROVIDERS: PCP Nurse Practitioner Family; Visit Provider Nurse Practitioner Family
DX: Z79.01 Long term (current) use of anticoagulants (principal); Z51.81 Encounter for therapeutic drug level monitoring
CPT/HCPCS: 85610; 99211; G0463

== ENCOUNTER → 2023-06-20 10:53 | Outpatient (CLI) | payer MEDICARE, SELFPAY ==
--- NOTE | 2023-06-20 11:03 | XR_ITS ---
PROCEDURE INFORMATION: Exam: XR Right Hip Exam date and time: 06/20/2023 10:56 AM Age: 72 years old Clinical indication: Hip pain; Right hip; Prior surgery; Surgery date: 1-6 months; Surgery type: Hip replacement; Additional info: RT hip pain TECHNIQUE: Imaging protocol: Radiologic exam of the right hip. Views: 2 or 3 views hip with pelvis when performed. Total images: 3 COMPARISON: CR XR HIP RT 2-3V W/PELVIS 03/23/2023 2:57 PM FINDINGS: Bones/joints: Status post right total hip replacement without evidence of complications. Degenerative changes of the left hip. No evidence of acute fracture. No evidence of acute dislocation. Soft tissues: Unremarkable. IMPRESSION: 1. Status post right total hip replacement without evidence of complications. 2. Degenerative changes of the left hip. 3. No evidence of acute fracture. 4. No evidence of acute dislocation.
== END ==
LOC: RAD 10:55
PROVIDERS: Visit Provider Orthopaedic Surgery
DX: S72.001A Fracture of unspecified part of neck of right femur, initial encounter for closed fracture (principal); M25.551 Pain in right hip
CPT/HCPCS: 73502

== ENCOUNTER 2023-07-15 13:36 | Outpatient (CLI) | payer MEDICARE, SELFPAY ==
[2023-07-15 15:08] LABS: PHA INR Fingerstick 2.6 (0.9-1.1)
== END 2023-07-15 15:48 ==
LOC: ACC 13:38
PROVIDERS: PCP Nurse Practitioner Family; Visit Provider Nurse Practitioner Family
DX: Z79.01 Long term (current) use of anticoagulants (principal); Z51.81 Encounter for therapeutic drug level monitoring; Z86.718 Personal history of other venous thrombosis and embolism
CPT/HCPCS: 85610; 99211; G0463

== ENCOUNTER 2023-08-26 14:48 | Outpatient (CLI) | payer MEDICARE, SELFPAY ==
[2023-08-26 15:36] LABS: PHA INR Fingerstick 1.8 (0.9-1.1)
== END 2023-08-26 15:38 ==
LOC: ACC 14:49
PROVIDERS: PCP Nurse Practitioner Family; Visit Provider Nurse Practitioner Family
DX: Z79.01 Long term (current) use of anticoagulants (principal)
CPT/HCPCS: 85610; 99211; G0463

== ENCOUNTER → 2023-08-26 17:05 | Outpatient (CLI) | payer MEDICARE, SELFPAY ==
[2023-08-26 19:20] LABS: Alanine Aminotransferase 17 U/L (12-78); Albumin Level 4.3 g/dl (3.5-5.0); Albumin/Globulin Ratio 1.4 (1.1-1.8); Alkaline Phosphatase 140 U/L (38-126); Anion Gap 19.6 mEq/L (5-15); Aspartate Amino Transferase 29 U/L (14-36); Blood Urea Nitrogen 25 mg/dl (7-17); Calcium 9.5 mg/dl (8.4-10.2); Carbon Dioxide 27 mmol/L (22.0-30.0); Chloride 99 mmol/L (98-107); Chol/HDL Ratio 3.1 (1-3.5); Cholesterol 164 mg/dl (140-200); Estimated Glomerular Filt Rate 54 ml/min (>60); GFR (African American) 66 ML/MIN (>60); Globulin 3.1 g/dL (1.3-3.2); Glucose 90 mg/dl (74-100); HDL Cholesterol 53 mg/dl (40-60); Potassium 5.6 mmoL/L (3.5-5.1); Sodium 140 mmol/L (136-145); Total Protein,Serum 7.4 g/dl (6.3-8.2); Triglycerides 179 mg/dl (30-150); VLDL Cholesterol 36 mg/dL (0-40)
[2023-08-26 19:24] LABS: Bilirubin,Total 0.1 mg/dl (0.2-1.3)
[2023-08-26 19:26] LABS: Hemoglobin A1C 7.1 % (4.0-6.0)
[2023-08-26 19:32] LABS: Direct LDL Cholesterol 70.45 mg/dL (100-129)
[2023-08-26 20:14] LABS: Ferritin 12.5 ng/ml (11.1-264)
[2023-08-26 20:36] LABS: Vitamin B12 268 pg/mL (239-931)
== END ==
PROVIDERS: PCP Nurse Practitioner Family; Visit Provider Nurse Practitioner Family
DX: E78.5 Hyperlipidemia, unspecified (principal); I10 Essential (primary) hypertension; E11.9 Type 2 diabetes mellitus without complications; R25.1 Tremor, unspecified; R30.0 Dysuria; B96.29 Other Escherichia coli [E. coli] as the cause of diseases classified elsewhere; B96.89 Other specified bacterial agents as the cause of diseases classified elsewhere; Z79.84 Long term (current) use of oral hypoglycemic drugs; Z51.81 Encounter for therapeutic drug level monitoring; Z79.01 Long term (current) use of anticoagulants
CPT/HCPCS: 80053; 80061; 82043; 82607; 82728; 83036; 85610; 87086; 99211; G0463

== ENCOUNTER → 2023-09-12 16:46 | Outpatient (CLI) | payer MEDICARE, SELFPAY | PROVIDERS: PCP Nurse Practitioner Family; Visit Provider Nurse Practitioner Family | DX: N39.0 Urinary tract infection, site not specified (principal); B96.89 Other specified bacterial agents as the cause of diseases classified elsewhere | CPT/HCPCS: 87086 ==

== ENCOUNTER → 2023-09-15 09:09 | Outpatient (CLI) | payer MEDICARE, SELFPAY ==
--- NOTE | 2023-09-15 09:23 | XR_ITS ---
FINAL REPORT CLINICAL HISTORY: RT HIP PAIN COMPARISON: None FINDINGS: RIGHT HIP Three views of the right hip demonstrate right total joint prosthesis. There is a mildly displaced fracture of the greater tuberosity. The visualized bony structures are well aligned. No soft tissue abnormality is seen. IMPRESSION: Mildly displaced fracture greater tuberosity. Reviewed, Interpreted and Dictated by Jaden Johnson MD Transcribed by Cely Caballero Authenticated and [facility]
== END ==
LOC: RAD 09:11
PROVIDERS: PCP Nurse Practitioner Family; Visit Provider Orthopaedic Surgery
DX: S72.001A Fracture of unspecified part of neck of right femur, initial encounter for closed fracture (principal); Y99.9 Unspecified external cause status
CPT/HCPCS: 73502

== ENCOUNTER 2023-10-25 11:30 | Emergency (ER) | payer MEDICARE, SELFPAY ==
[2023-10-25 11:41] VITALS: BP 173/109; PULSE 117; RESP 20; TEMP 36.7; O2SAT 97; BMI 25.7
[2023-10-25 12:11] VITALS: BP 167/101; PULSE 95; O2SAT 99
--- NOTE | 2023-10-25 12:28 | XR_ITS ---
FINAL REPORT CLINICAL HISTORY: hip pain radiating to knee, recent op FINDINGS: 3 views of the right knee were obtained. There is no acute fracture or dislocation. There are mild degenerative changes. There is no soft tissue abnormality. IMPRESSION: No acute process. Reviewed, Interpreted and Dictated by Miguel Claudio III, MD Transcribed by Reji Fraire Authenticated and . [facility]
--- NOTE | 2023-10-25 12:28 | XR_ITS ---
FINAL REPORT CLINICAL HISTORY: hip pain radiating to knee, recent op FINDINGS: Multiple views of the right femur were obtained. There is no acute fracture or dislocation. There is postoperative change of the proximal femur. There are mild degenerative changes at the knee. IMPRESSION: No acute process. Reviewed, Interpreted and Dictated by Miguel Claudio III, MD Transcribed by Reji Fraire Authenticated and [facility]
--- NOTE | 2023-10-25 12:28 | XR_ITS ---
FINAL REPORT CLINICAL HISTORY: hip pain radiating to knee, recent op FINDINGS: Right hip with pelvis. There is no acute fracture or dislocation. There is total right hip arthroplasty. There is mild degenerative change of the left hip. There are chronic calcifications adjacent to the right greater trochanter. IMPRESSION: No acute process. Reviewed, Interpreted and Dictated by Miguel Claudio III, MD Transcribed by Reji Fraire Authenticated and [facility]
--- NOTE | 2023-10-25 12:47 | ED_ITS ---
Discharge Plan Disposition Patient Disposition: Home, Self-Care Condition: Good Prescriptions Prescriptions: New prednisone 20 mg tablet 40 mg PO DAILY 5 Days Qty: 10 0RF No Action buspirone 15 mg tablet 15 mg PO TID pentoxifylline 400 mg tablet extended release 400 mg PO TID Rx Instructions: administer with meals allopurinol 100 mg tablet 100 mg PO DAILY warfarin 3 mg tablet 6 mg PO MOWEFR clonazepam [Klonopin] 0.5 mg tablet 0.5 mg PO HS Qty: 30 5RF Rx Instructions: administer 30 minutes before bedtime primidone 250 mg tablet 250 mg PO BID Qty: 60 11RF amlodipine 5 mg tablet 5 mg PO DAILY 90 Days Qty: 90 1RF rosuvastatin 20 mg tablet 20 mg PO DAILY 90 Days Qty: 90 1RF omeprazole 20 mg capsule,delayed release(DR/EC) 20 mg PO DAILY 90 Days Qty: 90 1RF metformin 850 mg tablet 850 mg PO BID 90 Days Qty: 180 0RF Rx Instructions: Take with food venlafaxine [Effexor XR] 150 mg capsule,extended release 24hr 150 mg PO DAILY Qty: 30 2RF tolterodine [Detrol LA] 4 mg capsule,extended release 24hr 4 mg PO DAILY Qty: 30 2RF cephalexin 500 mg capsule 500 mg PO Q8H 10 Days Qty: 30 0RF gabapentin 100 mg capsule See Rx Instructions .ROUTE .COMPLEX Qty: 120 0RF Dose Instruction: TAKE ONE CAPSULE BY MOUTH IN THE MORNING, TAKE ONE CAPSULE AT NOON, AND TAKE TWO CAPSULES AT BEDTIME Rx Instructions: TAKE ONE CAPSULE BY MOUTH IN THE MORNING, TAKE ONE CAPSULE AT NOON, AND TAKE TWO CAPSULES AT BEDTIME calcium polycarbophil 625 MG tablet 2 tab PO DAILY Rx Instructions: unknown dose furosemide 20 mg Tablet 20 mg PO BIDL 9999 Days Qty: 0 0RF Referrals Follow up/Referrals: Gwen Miller APRN [Primary Care Provider] - See instructions Clinical Impressions Clinical Impression: Acute pain of right hip Discharge ED Provider: Jose R Vidal General Adult HPI General Chief complaint: PAIN Stated complaint: right leg/hip pain Time Seen by Provider: 10/25/23 12:01 Mode of Arrival: Wheelchair Source of Information: Patient Limitations: No Limitations Description of Symptoms (Recalled from ER Triage Doc. by RN): Patient reports she had surgery on her right hip in March 2023 by from a fall. Patient had a fall 2-3 months ago and fell on her right hip again. Patient states hip has hurt since the fall but she has been able to put pressure and walk on it but today she can't put any weight on leg and pain is 10/10 in right hip. Patient has a appointment with this . History of Present Illness HPI narrative: Patient is 72 years old has recent history of right greater trochanteric MRI status post fixation in 2022, CKD, hypertension, hyperlipidemia, diabetes, CHF presenting with right hip and knee pain. She states that this acute pain started 2 days prior to this visit. No trauma was sustained. Does not notice anything that makes it better, Lyrica and Tylenol did not make it any better either. It is intermittent, sharp/stabbing, radiates down the front of her leg to her right knee. No episodes of weakness. No left lower extremity symptoms. No bowel or bladder symptoms. Related Data Home Medications Medication Instructions Recorded Confirmed buspirone 15 mg tablet 15 mg PO TID Anxiety 03/06/18 09/15/23 allopurinol 100 mg tablet 100 mg PO DAILY Gout 09/23/20 09/15/23 pentoxifylline 400 mg 400 mg PO TID Blood flow 09/23/20 09/15/23 tablet,extended release calcium polycarbophil 625 mg tablet 2 tab PO DAILY Constipation 10/02/21 09/15/23 warfarin 3 mg tablet 6 mg PO MOWEFR Blood thinner 09/12/23 09/15/23 Previous Rx's Medication Instructions Recorded furosemide 20 mg tablet 20 mg PO BIDL 9999 days #0 tabs 03/25/23 clonazepam 0.5 mg tablet (Klonopin) 0.5 mg PO HS Tremor #30 tabs 06/14/23 primidone 250 mg tablet 250 mg PO BID Tremors #60 tabs 06/14/23 amlodipine 5 mg tablet 5 mg PO DAILY High blood pressure 08/26/23 90 days #90 tabs metformin 850 mg tablet 850 mg PO BID Diabetes 90 days 08/26/23 #180 tabs omeprazole 20 mg capsule,delayed 20 mg PO DAILY Acid reflux 90 days 08/26/23 release #90 caps rosuvastatin 20 mg tablet 20 mg PO DAILY Cholesterol 90 days 08/26/23 #90 tabs cephalexin 500 mg capsule 500 mg PO Q8H 10 days #30 caps 09/12/23 tolterodine 4 mg capsule,extended 4 mg PO DAILY #30 caps 09/12/23 release 24 hr (Detrol LA) venlafaxine 150 mg 150 mg PO DAILY #30 caps 09/12/23 capsule,extended release 24 hr (Effexor XR) gabapentin 100 mg capsule See Rx Instructions .Route 10/03/23 .COMPLEX #120 caps prednisone 20 mg tablet 40 mg PO DAILY 5 days #10 tabs 10/25/23 Allergies Allergy/AdvReac Type Severity Reaction Status Date / Time ciprofloxacin [From Cipro] Allergy Unknown Verified 09/15/23 10:39 allergy reaction latex Allergy Unknown Verified 09/15/23 10:39 allergy reaction morphine Allergy Unknown Verified 09/15/23 10:39 allergy reaction PFSH PFSH Disclaimer: The information contained in this section may have been updated after the patient was seen, as this information can be updated by other users. Family History Other Displaced fracture of right femoral neck Social History Smoking Status: Current every day smoker tobacco type: cigarettes packs per day: 2 second hand exposure: Yes alcohol intake: current substance use type: denies use current occupational status: retired Travel in the last 8 weeks: None household members: spouse and family housing: house current occupational exposures/hazards: No caffeine: Yes ROS Obtained: Yes All systems reviewed & no additional complaints except as documented Physical Exam General General appearance: alert and in no apparent distress Head Head exam: atraumatic and normocephalic Eye Eye exam: Present normal appearance, PERRL and EOMI ENT ENT exam: Present mucous membranes moist Neck Neck exam: Present normal inspection, full ROM and trachea midline Respiratory Respiratory exam: Absent respiratory distress, wheezes, stridor, accessory muscle use or prolonged expiratory phase Cardiovascular Cardiovascular exam: Present normal rhythm Abdominal Exam Abdominal exam: Present soft; Absent distention, tenderness, guarding, rebound or rigidity Extremities Exam Extremities exam: Absent edema Neurological Exam Neurological exam: Present alert, oriented X3 and CN II-XII intact; Absent motor sensory deficit Skin Skin exam: Present warm and dry; Absent diaphoresis or erythema Medical Decision Making Medical Records Medical records reviewed: Yes I reviewed the patient's medical records. Papi Inquiry Pt receiving controlled substance: No Papi was queried for this patient: No Vital Signs: 10/25/23 11:41 10/25/23 12:11 10/25/23 15:14 Temperature 98.1 F 98.1 F Temperature Source Oral Oral Pulse Rate 95 H 75 Pulse Rate [Right Brachial] 117 H Respiratory Rate 20 20 Blood Pressure 167/101 H 145/70 H Blood Pressure [Right Arm] 173/109 H Blood Pressure Mean [Right Arm] 130 Blood Pressure Source Automatic Cuff Blood Pressure Source [Right Arm] Automatic Cuff Blood Pressure Position Sitting Blood Pressure Position [Right Arm] Sitting 02 Sat by Pulse Oximetry 97 99 Oxygen Delivery Method Room Air Room Air Room Air Orders (Tests/Meds): ED MEDICATIONS Discontinued Medications Generic Name Dose Route Start Last Admin Trade Name Maulik PRN Reason Stop Dose Admin Dexamethasone 10 mg 10/25/23 12:49 10/25/23 13:42 Dexamethasone 4mg Tablet PO 10/25/23 12:50 10 mg ONCE ONE Administration Ketorolac Tromethamine 10 mg 10/25/23 12:50 10/25/23 13:50 Ketorolac 10mg Tablet PO 10/25/23 12:51 Not Given ONCE ONE Ketorolac Tromethamine 60 mg 10/25/23 13:51 10/25/23 13:56 Ketorolac 30mg/Ml Vial IM 10/25/23 13:52 60 mg ONCE ONE Administration ORDERS Category Date Time Status Femur XR right 2 views [XR femur RT 2V] Stat Exams 10/25/23 12:28 Completed Hip XR right minimum 2 views [XR hip RT 2-3V w/pelvis] Exams 10/25/23 12:28 Completed Stat Knee XR right 3 views [XR knee RT 3V] Stat Exams 10/25/23 12:28 Completed Medical Decision Narrative: Patient is 72 years old has recent history of right greater trochanteric MRI status post fixation in 2022, CKD, hypertension, hyperlipidemia, diabetes, CHF presenting with right hip and knee pain. She states that this acute pain started 2 days prior to this visit. No trauma was sustained. Does not notice anything that makes it better, Lyrica and Tylenol did not make it any better either. It is intermittent, sharp/stabbing, radiates down the front of her leg to her right knee. No episodes of weakness. No left lower extremity symptoms. No bowel or bladder symptoms. istory was obtained via conversation with patient. On arrival, patient hemodynamically stable, alert, oriented x4, appropriate, GCS 15, moving all extremities spontaneously, pupils equal and reactive to light. Full physical exam performed and significant for resting tremor. Patient well- appearing in no acute distress. Has pain with flexion and extension of right hip, as well as extension of right knee. No evidence of flexion of knee pain. Neurovascularly intact. Differential includes neuropathic pain, radiculopathy, neuropathy, fracture, hardware failure, among others. Patient was given Toradol Decadron p.o. for symptomatic management and correction of underlying abnormalities. Workup independently interpreted and significant for no bony abnormalities of the lower extremity, but patient does have calcific tendinosis of the right greater trochanter. See radiology read for full review of final results. On reevaluation, she states she is feeling much better and requesting to leave. She does have follow-up with orthopedics in the next couple of days. Steroid sent to pharmacy. Because patient at baseline without signs or symptoms of clinical decompensation, deemed appropriate for discharge. Results were relayed to patient who voiced understanding and were agreeable to outpatient management and follow up. At the time of discharge the patient was hemodynamically stable, tolerating PO, and mobilizing appropriately. Critical Care Critical Care Time Critical Care Time: No
--- NOTE | 2023-10-25 12:57 | PC.NURSE ---
PT gone to RAD via wheelchair
[2023-10-25] MEDS: DEXAMETHASONE 4MG TABLET 10 MG PO (13:42)
[2023-10-25] MEDS: KETOROLAC 30MG/ML VIAL 60 MG IM (13:56)
[2023-10-25 15:14] VITALS: BP 145/70; PULSE 75; RESP 20; TEMP 36.7; O2SAT 97
== END 2023-10-25 15:25 | disposition home or self-care (01) ==
PROVIDERS: Emergency Provider Emergency Medicine; PCP Nurse Practitioner Family
DX: M25.551 Pain in right hip (principal); M25.561 Pain in right knee; I13.0 Hypertensive heart and chronic kidney disease with heart failure and stage 1 through stage 4 chronic kidney disease, or unspecified chronic kidney disease; I50.9 Heart failure, unspecified; N18.9 Chronic kidney disease, unspecified; E11.9 Type 2 diabetes mellitus without complications; E78.5 Hyperlipidemia, unspecified; F17.210 Nicotine dependence, cigarettes, uncomplicated
CPT/HCPCS: 73502; 73552; 73562; 96372; 99284

== ENCOUNTER 2023-11-10 12:33 | Outpatient (CLI) | payer MEDICARE, SELFPAY ==
--- NOTE | 2023-11-10 12:41 | XR_ITS ---
FINAL REPORT CLINICAL HISTORY: fell now having rt hip pain-- surg 04/08 COMPARISON: 10/25/2023 FINDINGS: RIGHT HIP Two views of the right hip demonstrate a mildly displaced fracture of the greater trochanter. Hip prosthesis is properly positioned. No soft tissue abnormality is seen. IMPRESSION: Interval fracture greater trochanter. Reviewed, Interpreted and Dictated by Jaden Johnson MD Transcribed by Cely Caballero Authenticated and [facility]
== END 2023-11-10 23:59 ==
LOC: RAD 12:35
PROVIDERS: PCP Nurse Practitioner Family; Visit Provider Orthopaedic Surgery
DX: M25.551 Pain in right hip (principal)
CPT/HCPCS: 73502

== ENCOUNTER 2023-11-24 09:39 | Outpatient (CLI) | payer MEDICARE, SELFPAY ==
--- NOTE | 2023-11-24 09:44 | XR_ITS ---
FINAL REPORT CLINICAL HISTORY: right hip fx f/u COMPARISON: 11/10/2023 FINDINGS: AP and frog leg views of the right hip were obtained. A right hip arthroplasty is again identified. There is a subacute fracture of the greater trochanter on the right side, with increased lateral subluxation of the fracture fragment, on today's exam measuring up to 13 mm. There is no acute fracture or dislocation. There is mild degenerative change present in the left hip. Soft tissues are within normal limits. IMPRESSION: Right hip arthroplasty again noted. The subacute fracture of the greater trochanter has subluxed laterally since the prior exam, with subluxation on today's exam widening to 13 mm. Reviewed, Interpreted and Dictated by Miguel Claudio III, MD Transcribed by Nikki Velazco Authenticated and [facility]
== END 2023-11-24 23:59 ==
LOC: RAD 09:40
PROVIDERS: PCP Nurse Practitioner Family; Visit Provider Orthopaedic Surgery
DX: M25.551 Pain in right hip (principal)
CPT/HCPCS: 73502

== ENCOUNTER 2023-11-28 16:49 | Outpatient (CLI) | payer MEDICARE, SELFPAY ==
[2023-11-28 17:51] LABS: Alanine Aminotransferase 35 U/L (12-78); Albumin Level 3.4 g/dl (3.5-5.0); Albumin/Globulin Ratio 1.1 (1.1-1.8); Alkaline Phosphatase 302 U/L (38-126); Anion Gap 15.5 mEq/L (5-15); Aspartate Amino Transferase 91 U/L (14-36); Bilirubin,Total 0.7 mg/dl (0.2-1.3); Blood Urea Nitrogen 17 mg/dl (7-17); Calcium 8.9 mg/dl (8.4-10.2); Carbon Dioxide 26 mmol/L (22.0-30.0); Chloride 93 mmol/L (98-107); Chol/HDL Ratio 6.8 (1-3.5); Cholesterol 238 mg/dl (140-200); Estimated Glomerular Filt Rate 98 ml/min (>60); GFR (African American) 118 ML/MIN (>60); Globulin 3.2 g/dL (1.3-3.2); Glucose 187 mg/dl (74-100); HDL Cholesterol 35 mg/dl (40-60); Potassium 4.5 mmoL/L (3.5-5.1); Sodium 130 mmol/L (136-145); Total Protein,Serum 6.6 g/dl (6.3-8.2); Triglycerides 210 mg/dl (30-150); VLDL Cholesterol 42 mg/dL (0-40)
[2023-11-28 18:02] LABS: Direct LDL Cholesterol 133.16 mg/dL (100-129)
[2023-11-28 18:11] LABS: Hemoglobin A1C 6.8 % (4.0-6.0)
[2023-11-28 18:20] LABS: Thyroid Stimulating Hormone 2.56 uIU/mL (0.465-4.68)
== END 2023-11-28 23:59 ==
LOC: LAB.DROPOF 16:50
PROVIDERS: PCP Nurse Practitioner Family; Visit Provider Nurse Practitioner Family
DX: E11.9 Type 2 diabetes mellitus without complications (principal); I10 Essential (primary) hypertension; Z79.84 Long term (current) use of oral hypoglycemic drugs; F17.210 Nicotine dependence, cigarettes, uncomplicated
CPT/HCPCS: 80053; 80061; 83036; 84443

== ENCOUNTER 2023-12-05 07:14 | Day surgery (SDC) | payer MEDICARE, SELFPAY ==
[2023-12-02 11:06] VITALS: BMI 31.7
[2023-12-05 07:41] VITALS: BP 156/100; PULSE 121; RESP 18; TEMP 36.3; O2SAT 98
[2023-12-05 07:51] LABS: POC Glucose,Bedside 234 (70-110)
[2023-12-05 09:31] VITALS: BP 159/103; PULSE 114; RESP 17; TEMP 36.1; O2SAT 98
--- NOTE | 2023-12-05 09:36 | P.PCN_ITS ---
[facility] Procedure Note Procedure Note:: Cystoscopy: The patient was brought to the outpatient treatment room. She is prepped and draped in the usual fashion. Care was taken with her right hip which is fractured. After being prepped and draped she underwent catheterization with a 12 [place] rigid catheter. The patient did not have a sensation that she needed to void before catheterization. Her residual urine was 2400 cc. Urine culture and sensitivity has been set up. The patient then underwent using sterile technique flexible cystoscopy her bladder itself is smooth without lesion are erythematous area. The ureteral orifice ease are normal bilaterally. The patient does have significant urethritis. External genitalia demonstrates significant atrophic vaginitis and her urethral meatus is intravaginal. She tolerated the procedure well. I inserted a 16 [place] Reid indwelling catheter for management of her chronic urinary retention. She will discontinue oxybutynin. The patient is diabetic and has peripheral neuropathy causing her bladder dysfunction.
[2023-12-05 09:50] LABS: Microscopic,Cath URINE MICROSCOPIC (MICROSCOPIC)
[2023-12-05 09:52] VITALS: BP 159/94; PULSE 114; RESP 17; O2SAT 97
[2023-12-05 10:07] LABS: Appearance,Urine/Cath CLEAR (Clear); Blood, Urine/Cath Negative (Negative); Color,Urine/Cath YELLOW (Yellow); Glucose,Urine/Cath (UA) Negative (Negative); Ketones,Urine/Cath Negative (Negative); Leukocyte Esterase,Cath Negative (Negative); Nitrate,Cath Negative (Negative); Protein,Urine/Cath 1+ (Negative); Specific Gravity, Urine/Cath 1.025 (1.005-1.030)
[2023-12-05 10:37] LABS: Bilirubin,Cath Negative (Negative)
[2023-12-05 10:42] LABS: Bacteria,Urine/Cath TRACE /lpf; Squamous Epithelial Ur./Cath Occasional #/hpf (0-5)
== END 2023-12-05 09:51 | disposition home or self-care (01) ==
PROVIDERS: PCP Nurse Practitioner Family; Visit Provider Urology
PROC: 0TJB8ZZ Inspection of Bladder, Via Natural or Artificial Opening Endoscopic (ICD-10-PCS; CPT 52000; principal; 2023-12-05 08:30)
DX: N34.2 Other urethritis (principal); N95.2 Postmenopausal atrophic vaginitis; R33.9 Retention of urine, unspecified; E11.42 Type 2 diabetes mellitus with diabetic polyneuropathy; N31.9 Neuromuscular dysfunction of bladder, unspecified
CPT/HCPCS: 52005; 81001; 82962

== ENCOUNTER 2023-12-14 14:46 | Outpatient (CLI) | payer MEDICARE, SELFPAY ==
--- NOTE | 2023-12-14 14:58 | US_ITS ---
FINAL REPORT TECHNIQUE: Sonographic images of the right upper quadrant were obtained. CLINICAL HISTORY: Elevated liver enzymes COMPARISON: None FINDINGS: PANCREAS: Unremarkable. LIVER: Homogeneous. No focal hepatic lesion. No intrahepatic biliary ductal dilatation. GALLBLADDER: The gallbladder has been surgically resected. COMMON DUCT: 3 mm. Normal for age. RIGHT KIDNEY: The right kidney measures 8.7 cm. There is no hydronephrosis, mass, or stone. There is mild cortical thinning, with a questionable small cortical renal cyst. FREE FLUID: None. IMPRESSION: Prior cholecystectomy without evidence of biliary ductal dilatation. Mild cortical thinning of the right kidney with a questionable small right cortical renal cyst. Reviewed, Interpreted and Dictated by Gardenia Downey MD Transcribed by Nikki Velazco Authenticated and [facility]
== END 2023-12-14 23:59 ==
LOC: RAD 14:47
PROVIDERS: PCP Nurse Practitioner Family; Visit Provider Nurse Practitioner Family
DX: R74.8 Abnormal levels of other serum enzymes (principal)
CPT/HCPCS: 76705

== ENCOUNTER 2023-12-16 15:35 | Outpatient (CLI) | payer MEDICARE, SELFPAY ==
[2023-12-16 15:55] LABS: Basophils % 0.1 % (0.1-2.0); Eosinophils % 0.1 % (0.1-12.0); Hematocrit 23.8 % (37.0-47.0); Lymphocytes # 0.8 K/mm3 (0.7-4.5); Lymphocytes % 5.5 % (10-50); Mean Corpuscular HGB Conc 29.4 g/dL (31.8-35.4); Mean Corpuscular Hemoglobin 27.7 pg (27.0-31.2); Mean Corpuscular Volume 94.1 fl (81-99); Mean Platelet Volume 8.2 fl (7.4-10.4); Monocytes # 0.3 K/mm3 (0.1-1.0); Monocytes % 2.4 % (1.7-9.3); Neutrophils # 12.6 K/mm3 (1.8-7.8); Neutrophils % 91.9 % (37.0-80.0); Platelet Count 616 K/mm3 (142-424); Red Blood Count 2.53 M/mm3 (4.20-5.40); White Blood Count 13.7 K/mm3 (4.8-10.8)
[2023-12-16 15:58] LABS: MANUAL DIFFERENTIAL MANUAL DIFFERENTIAL (MANUAL DIFF)
[2023-12-16 17:09] LABS: Anisocytosis 1+; Lymphocytes % 9 % (10-50); Microcytosis 1+; Monocytes % 1 % (2-9); Neutrophils % 90 % (42-76); Platelet Estimate Marked Increase; Total Cells Counted 100
[2023-12-16 17:10] LABS: Hypochromasia 2+
[2023-12-16 17:37] LABS: Alanine Aminotransferase 42 U/L (12-78); Albumin Level 2.7 g/dl (3.5-5.0); Albumin/Globulin Ratio 0.8 (1.1-1.8); Alkaline Phosphatase 277 U/L (38-126); Amylase 51 U/L (30-110); Aspartate Amino Transferase 147 U/L (14-36); Bilirubin,Total 0.7 mg/dl (0.2-1.3); Blood Urea Nitrogen 68 mg/dl (7-17); Calcium 8.6 mg/dl (8.4-10.2); Carbon Dioxide 26 mmol/L (22.0-30.0); Chloride 95 mmol/L (98-107); Estimated Glomerular Filt Rate 82 ml/min (>60); GFR (African American) 99 ML/MIN (>60); Globulin 3.2 g/dL (1.3-3.2); Glucose 319 mg/dl (74-100); Lipase 152 U/L (23-300); Sodium 131 mmol/L (136-145); Total Protein,Serum 5.9 g/dl (6.3-8.2)
[2023-12-19 16:12] LABS: Alkaline Phosphatase 260 IU/L (44-121); Bone Fraction: 31 % (14-68); Intestinal Frac.: 0 % (0-18); Liver Fraction: 69 % (18-85)
== END 2023-12-16 23:59 ==
LOC: LAB.DROPOF 15:36
PROVIDERS: PCP Nurse Practitioner Family; Visit Provider Nurse Practitioner Family
DX: R63.4 Abnormal weight loss (principal); R74.8 Abnormal levels of other serum enzymes; R31.9 Hematuria, unspecified; B95.2 Enterococcus as the cause of diseases classified elsewhere
CPT/HCPCS: 80053; 82150; 83690; 84075; 84080; 85007; 85025; 87086

== ENCOUNTER 2023-12-23 10:29 | Outpatient (CLI) | payer MEDICARE, SELFPAY ==
[2023-12-23 11:04] VITALS: BMI 31.7
[2023-12-23 11:41] LABS: Hemoglobin 8.6 g/dL (12.2-16.2)
--- NOTE | 2023-12-23 11:50 | PC.NURSE ---
1150-continuation from wound assessment note; aware of wound, pt sister took updated picture to show dr on 12/26/23; home health doing wound care .
== END 2023-12-23 12:30 | disposition home or self-care (01) ==
LOC: INF 10:31
PROVIDERS: PCP Nurse Practitioner Family; Visit Provider Nurse Practitioner Family
DX: D64.9 Anemia, unspecified (principal)
CPT/HCPCS: 36415; 85014; 85018; 86850

== ENCOUNTER 2023-12-26 11:51 | Observation (INO) | payer MEDICARE, SELFPAY ==
[2023-12-26] VITALS (16 sets, daily range): BP systolic 90–148; BP diastolic 53–98; PULSE 104–118; RESP 17–18; TEMP 36.4–36.6; O2SAT 94–100; BMI 23.5
--- NOTE | 2023-12-26 12:14 | HMH.EDGENADL ---
Discharge Plan Disposition Chief Complaint: Wound/Laceration Prescriptions Prescriptions: No Action tramadol 50 mg tablet 50 mg PO Q8H PRN (Reason: hip fracture pain) Qty: 30 0RF allopurinol 100 mg tablet 100 mg PO DAILY warfarin 3 mg tablet 6 mg PO DAILY clonazepam [Klonopin] 0.5 mg tablet 0.5 mg PO HS Qty: 30 5RF Rx Instructions: administer 30 minutes before bedtime primidone 250 mg tablet 250 mg PO BID Qty: 60 11RF amlodipine 5 mg tablet 5 mg PO DAILY 90 Days Qty: 90 1RF rosuvastatin 20 mg tablet 20 mg PO DAILY 90 Days Qty: 90 1RF metformin 850 mg tablet 850 mg PO BID 90 Days Qty: 180 0RF Rx Instructions: Take with food pentoxifylline 400 mg tablet extended release 400 mg PO TID menthol-zinc oxide [Calmoseptine] 0.44-20.6 % ointment 1 applic topical QID PRN (Reason: wound healing) Qty: 113 3RF venlafaxine [Effexor XR] 150 mg capsule,extended release 24hr 150 mg PO DAILY Qty: 30 2RF gabapentin 100 mg capsule See Rx Instructions .ROUTE .COMPLEX Qty: 120 0RF Dose Instruction: TAKE ONE CAPSULE BY MOUTH IN THE MORNING, TAKE ONE CAPSULE AT NOON, AND TAKE TWO CAPSULES AT BEDTIME Rx Instructions: TAKE ONE CAPSULE BY MOUTH IN THE MORNING, TAKE ONE CAPSULE AT NOON, AND TAKE TWO CAPSULES AT BEDTIME buspirone 15 mg tablet 15 mg PO TID 90 Days Qty: 270 1RF Santyl 250 unit/gram ointment 1 applic topical DAILY PRN (Reason: wound care) Qty: 90 0RF nitrofurantoin monohyd/m-cryst [Macrobid] 100 mg capsule 100 mg PO BID 10 Days Qty: 20 0RF Rx Instructions: must administer with a meal/food calcium polycarbophil 625 MG tablet 2 tab PO DAILY Rx Instructions: unknown dose omeprazole 20 mg capsule,delayed release(DR/EC) 20 mg PO BID furosemide 20 mg Tablet 20 mg PO BID Referrals Follow up/Referrals: Gwen Miller APRN [Primary Care Provider] - See instructions Clinical Impressions Clinical Impression: Sacral ulcer, Soft tissue infection, Sepsis, DKA (diabetic ketoacidosis), Lung mass, Hip mass, Adrenal mass, Need for comfort care Instructions Patient Instructions: DI for Laceration Repair Discharge ED Provider: Roland Ceja General Adult HPI <Roland Ceja MD - Last Filed: 12/26/23 16:08> General Chief complaint: Wound/Laceration Stated complaint: Pain around rear area Time Seen by Provider: 12/26/23 12:06 History of Present Illness HPI narrative: Patient is a 73-year-old female with past medical history of multiple comorbidities, previous multiple femur fractures over the last year that is wheelchair-bound who presents emergency department as a transfer patient from clinic for evaluation of a wound. Patient has a chronic sacral decubitus ulcer however family has noticed that it has rapidly progressed over the last week causing him to be concerned and present here for continued evaluation. Patient has indwelling Reid at baseline. They presented to PCP for evaluation who due to severity of wound transferred her here for continued evaluation. Patient has [id number] diabetes. Related Data Home Medications Medication Instructions Recorded Confirmed allopurinol 100 mg tablet 100 mg PO DAILY Gout 09/23/20 12/26/23 calcium polycarbophil 625 mg tablet 2 tab PO DAILY Constipation 10/02/21 12/26/23 pentoxifylline 400 mg 400 mg PO TID 11/28/23 12/26/23 tablet,extended release warfarin 3 mg tablet 6 mg PO DAILY Blood thinner 11/28/23 12/26/23 furosemide 20 mg tablet 20 mg PO BID 12/05/23 12/26/23 omeprazole 20 mg capsule,delayed 20 mg PO BID 12/05/23 12/26/23 release Previous Rx's Medication Instructions Recorded clonazepam 0.5 mg tablet (Klonopin) 0.5 mg PO HS Tremor #30 tabs 06/14/23 primidone 250 mg tablet 250 mg PO BID Tremors #60 tabs 06/14/23 amlodipine 5 mg tablet 5 mg PO DAILY High blood pressure 08/26/23 90 days #90 tabs metformin 850 mg tablet 850 mg PO BID Diabetes 90 days 08/26/23 #180 tabs rosuvastatin 20 mg tablet 20 mg PO DAILY Cholesterol 90 days 08/26/23 #90 tabs venlafaxine 150 mg 150 mg PO DAILY #30 caps 09/12/23 capsule,extended release 24 hr (Effexor XR) gabapentin 100 mg capsule See Rx Instructions .Route 11/01/23 .COMPLEX #120 caps tramadol 50 mg tablet 50 mg PO Q8H PRN hip fracture pain 11/24/23 #30 tabs menthol 0.44 %-zinc oxide 20.6 % 1 applic topical QID PRN wound 11/28/23 topical ointment (Calmoseptine) healing #113 grams buspirone 15 mg tablet 15 mg PO TID Anxiety 90 days #270 12/09/23 tabs collagenase clostridium histo. 250 1 applic topical DAILY PRN wound 12/13/23 unit/gram topical ointment (Santyl) care #90 grams nitrofurantoin 100 mg PO BID 10 days #20 caps 12/20/23 monohydrate/macrocrystals 100 mg capsule (Macrobid) Allergies Allergy/AdvReac Type Severity Reaction Status Date / Time ciprofloxacin [From Cipro] Allergy Unknown Verified 12/26/23 10:32 allergy reaction latex Allergy Unknown Verified 12/26/23 10:32 allergy reaction morphine Allergy Unknown Verified 12/26/23 10:32 allergy reaction PFSH <Roland Ceja MD - Last Filed: 12/26/23 16:08> [facility] Disclaimer: The information contained in this section may have been updated after the patient was seen, as this information can be updated by other users. Medical History History of hip fracture History of DVT (deep vein thrombosis) History of hyperlipidemia History of hypertension History of diabetes mellitus Surgical History History of appendectomy History of cholecystectomy History of colonoscopy History of total right hip arthroplasty Family History Other Displaced fracture of right femoral neck Social History Smoking Status: Former smoker tobacco type: cigarettes packs per day: 2 second hand exposure: Yes alcohol intake: current substance use type: denies use current occupational status: retired Travel in the last 8 weeks: None household members: spouse and family housing: house current occupational exposures/hazards: No caffeine: Yes <Roland Ceja MD - Last Filed: 12/26/23 16:08> ROS Obtained: Yes Systems reviewed as appropriate & no additional complaints except as documented Physical Exam <Roland Ceja MD - Last Filed: 12/26/23 16:08> General General appearance: alert and in no apparent distress Head Head exam: atraumatic and normocephalic Eye Eye exam: Present PERRL and EOMI ENT ENT exam: Present mucous membranes moist Neck Neck exam: Present normal inspection Chest Chest inspection: Present normal inspection and symmetric chest wall rise Respiratory Respiratory exam: Present normal lung sounds bilaterally; Absent respiratory distress Cardiovascular Cardiovascular exam: Present normal rhythm and tachycardia Abdominal Exam Abdominal exam: Present soft; Absent tenderness Extremities Exam Extremities exam: Present normal inspection Back Exam Back exam: Present other (Large sacral decubitus ulcer with sloughing purulence, feculent areas of the wound. It does not interrupt the external anal sphincter.) Neurological Exam Neurological exam: Present alert and oriented X3 Psychiatric Psychiatric exam: Present normal affect Skin Skin exam: Present warm and dry Medical Decision Making <Roland Ceja MD - Last Filed: 12/26/23 16:08> Papi Inquiry Pt receiving controlled substance: No Vital Signs: 12/26/23 11:53 12/26/23 12:13 12/26/23 12:38 Temperature 97.5 F L Temperature Source Oral Pulse Rate 111 H 111 H Pulse Rate [Left Radial] 111 H Respiratory Rate 17 Blood Pressure 119/84 136/93 H Blood Pressure [Right Arm] 119/84 Blood Pressure Mean [Right Arm] 95 02 Sat by Pulse Oximetry 100 100 99 Oxygen Delivery Method Room Air Room Air Room Air 12/26/23 13:03 12/26/23 13:30 12/26/23 14:29 Temperature Temperature Source Pulse Rate 104 H 111 H 114 H Pulse Rate [Left Radial] Respiratory Rate Blood Pressure 122/98 H 143/60 H 128/87 Blood Pressure [Right Arm] Blood Pressure Mean [Right Arm] 02 Sat by Pulse Oximetry 95 98 95 Oxygen Delivery Method Room Air Room Air 12/26/23 15:01 12/26/23 15:30 12/26/23 16:01 Temperature Temperature Source Pulse Rate 109 H 109 H 111 H Pulse Rate [Left Radial] Respiratory Rate Blood Pressure 125/59 L 114/69 104/69 L Blood Pressure [Right Arm] Blood Pressure Mean [Right Arm] 02 Sat by Pulse Oximetry 96 95 97 Oxygen Delivery Method Room Air 12/26/23 16:30 12/26/23 17:01 Temperature Temperature Source Pulse Rate 115 H 118 H Pulse Rate [Left Radial] Respiratory Rate Blood Pressure 126/55 L 96/68 L Blood Pressure [Right Arm] Blood Pressure Mean [Right Arm] 02 Sat by Pulse Oximetry 98 99 Oxygen Delivery Method Room Air Lab Data Lab Results 12/26/23 12:29: WBC 13.8 H, RBC 3.01 L, Hgb 8.6 L, Hct 29.5 L, MCV 98.2, MCH 28.7, MCHC 29.2 L, RDW 18.7 H, Plt Count 242, MPV 8.5, Neut % (Auto) 92.3 H, Lymph % (Auto) 5.4 L, Island % (Auto) 1.8, Eos % (Auto) 0.2, Baso % (Auto) 0.2, Neut # (Auto) 12.7 H, Lymph # (Auto) 0.8, Island # (Auto) 0.3, Eos # (Auto) 0.0, Baso # (Auto) 0.0, Total Counted 100, Neutrophils % (Manual) 93 H, Lymphocytes % (Manual) 4 L, Monocytes % (Manual) 3, Platelet Estimate Normal, RBC Morphology Normal, Sodium 123 L, Potassium 3.9, Chloride 91 L, Carbon Dioxide 24, Anion Gap 11.9, BUN 49 H, Creatinine 0.70, Estimated Creat Clear 53, Estimated GFR 82, Est GFR ( Amer) 99, Glucose 530 H*, Calcium 8.2 L, Total Bilirubin 1.2, AST 47 H, ALT 44, Alkaline Phosphatase 242 H, C-Reactive Protein 319.9 H, Total Protein 6.1 L, Albumin 2.7 L, Globulin 3.4 H, Albumin/Globulin Ratio 0.8 L 12/26/23 12:32: Lactate 2.9 H, Acetone Level Small 12/26/23 13:16: VBG pH 7.44 H, VBG pCO2 33.5 L, VBG pO2 146.9 H, VBG HCO3 22.0 L, VBG Total CO2 23.0, VBG O2 Saturation 99.5 H, VBG Base Excess -2.2 12/26/23 13:48: VBG Lactic Acid 5.0 H 12/26/23 12:29 12/26/23 12:29 Orders (Tests/Meds): ED MEDICATIONS Generic Name Dose Route Start Last Admin Trade Name Freangelica PRN Reason Stop Dose Admin Hydrocodone Bitart/Acetaminophen 1 tab 12/26/23 16:51 Hydrocodone/Apap 5/325 Mg Tablet PO 01/25/24 16:50 Q4HP PRN Mild to Moderate Pain (1-6) Vancomycin/PEG/NADA/Lysine/Water 1.25 gm in 250 mls @ 125 mls/hr 12/26/23 14:00 12/26/23 14:51 Vancomycin 1.25gm/250ml (Peg) Premix IV 01/05/24 13:59 125 mls/hr Q18H RHONDA Administration Piperacillin Sod/Tazobactam 100 mls @ 200 mls/hr 12/26/23 14:00 12/26/23 13:39 Sod 4.5 gm/ Sodium Chloride IV 01/05/24 13:59 200 mls/hr Q6H RHONDA Administration Insulin Human Regular 100 unit 101 mls @ 6.872 mls/hr 12/26/23 15:00 12/26/23 15:43 / Sodium Chloride IV 01/25/24 14:59 0.1 units/kg/hr .[id number] RHONDA 6.87 mls/hr Administration Protocol 0.1 UNITS/KG/HR Clindamycin Phosphate 900 mg in 50 mls @ 100 mls/hr 12/26/23 15:27 Clindamycin 900mg/50ml D5w Premix IV 01/05/24 15:26 Q8H RHONDA Insulin Human Lispro 0 unit 12/26/23 21:00 Humalog 100 Units/Ml 3ml Vial (Ssi) SQ 01/25/24 20:59 ACHS RHONDA Protocol Sodium Chloride 10 ml 12/26/23 13:55 Sodium Chloride 0.9% 10ml Syr (Rad Only) IV 01/25/24 13:54 NEEDED PRN Maintain IV Site Discontinued Medications Generic Name Dose Route Start Last Admin Trade Name Maulik PRN Reason Stop Dose Admin Hydromorphone HCl 0.5 mg 12/26/23 13:02 12/26/23 13:25 Hydromorphone 2mg/Ml Syringe IV 12/26/23 13:03 0.5 mg ONCE ONE Administration Lactated Ringer's 1,000 mls @ 999 mls/hr 12/26/23 12:18 12/26/23 13:38 Lactated Ringer's 1000 Ml Bag IV 12/26/23 13:18 Not Given .Q1H1M ONE Lactated Ringer's 1,850 mls @ 925 mls/hr 12/26/23 13:35 12/26/23 12:45 Lactated Ringer's 1000 Ml Bag 30 ml/kg infuse over 2 hr (1850 ml) 12/26/23 15:34 925 mls/hr IV Administration .Q2H ONE Iopamidol 75 ml 12/26/23 13:55 12/26/23 13:56 Iopamidol-370 (76%);100ml Bottle IV 12/26/23 13:56 75 ml ONCE ONE Administration Ondansetron HCl 4 mg 12/26/23 13:04 12/26/23 13:25 Ondansetron 4mg/2ml Vial IV 12/26/23 13:05 4 mg ONCE ONE Administration ORDERS Category Date Time Status CT abdomen pelvis w con Stat Cat Scan 12/26/23 13:20 Completed Consult to Hospice [CONS] Routine Cons 12/26/23 16:53 Active Acetone, Serum (Rapid) Stat Lab 12/26/23 12:32 Completed CBC w/Auto Diff [Complete Blood Count Auto Diff] Stat Lab 12/26/23 12:29 Completed CMP [Comprehensive Metabolic Panel] Stat Lab 12/26/23 12:29 Completed CRP [C-Reactive Protein] Stat Lab 12/26/23 12:29 Completed Complete Blood Count Auto Diff AMLAB Lab 12/27/23 06:00 Ordered Comprehensive Metabolic Panel AMLAB Lab 12/27/23 06:00 Ordered Lactate Venous Routine Lab 12/26/23 13:48 Completed Lactic Acid Stat Lab 12/26/23 12:32 Completed Magnesium AMLAB Lab 12/27/23 06:00 Ordered Blood Culture Stat Micro 12/26/23 13:34 Received VBG [Venous Blood Gas] Stat RT 12/26/23 13:16 Completed Medical Decision Narrative: In summary patient is a 73-year-old female past medical history described above presents emergency department to transfer patient from clinic for evaluation of rapidly progressing sacral decubitus ulcer. Patient is hemodynamically stable upon arrival, afebrile, tachycardic, normotensive. Differential includes necrotizing soft tissue infection, deep space infection, worsening sacral decubitus ulcer, among others. Workup will be conducted with hematologic labs, CT abdomen pelvis with IV contrast. Initial interventions included sepsis crystalloid resuscitation, broad-spectrum antibiotics, blood cultures to be obtained. Depending on degree of involvement will determine if patient is appropriate for this facility or not. Patient's wishes were discussed at bedside, if she were to need a diverting ostomy for some reason to improve her wound healing or need a debridement in the OR she wishes to proceed. Initial workup reviewed by me, leukocytosis of 13.8, persistent anemia, respiratory alkalosis with superimposed lactic acidosis with small ketones in the blood and hyperglycemia which will be treated with insulin drip, very high CRP, hyponatremia which when corrected is approximately 131. Given possibility of an STI patient will be broadened with clindamycin for [place] effect. CT imaging conducted and pending at time of transition of care to the oncoming physician, Dr. Bowens. <Charis Bowens MD - Last Filed: 12/26/23 17:07> Vital Signs: 12/26/23 11:53 12/26/23 12:13 12/26/23 12:38 Temperature 97.5 F L Temperature Source Oral Pulse Rate 111 H 111 H Pulse Rate [Left Radial] 111 H Respiratory Rate 17 Blood Pressure 119/84 136/93 H Blood Pressure [Right Arm] 119/84 Blood Pressure Mean [Right Arm] 95 02 Sat by Pulse Oximetry 100 100 99 Oxygen Delivery Method Room Air Room Air Room Air 12/26/23 13:03 12/26/23 13:30 12/26/23 14:29 Temperature Temperature Source Pulse Rate 104 H 111 H 114 H Pulse Rate [Left Radial] Respiratory Rate Blood Pressure 122/98 H 143/60 H 128/87 Blood Pressure [Right Arm] Blood Pressure Mean [Right Arm] 02 Sat by Pulse Oximetry 95 98 95 Oxygen Delivery Method Room Air Room Air 12/26/23 15:01 12/26/23 15:30 12/26/23 16:01 Temperature Temperature Source Pulse Rate 109 H 109 H 111 H Pulse Rate [Left Radial] Respiratory Rate Blood Pressure 125/59 L 114/69 104/69 L Blood Pressure [Right Arm] Blood Pressure Mean [Right Arm] 02 Sat by Pulse Oximetry 96 95 97 Oxygen Delivery Method Room Air 12/26/23 16:30 12/26/23 17:01 Temperature Temperature Source Pulse Rate 115 H 118 H Pulse Rate [Left Radial] Respiratory Rate Blood Pressure 126/55 L 96/68 L Blood Pressure [Right Arm] Blood Pressure Mean [Right Arm] 02 Sat by Pulse Oximetry 98 99 Oxygen Delivery Method Room Air Lab Data Lab results reviewed: Yes I reviewed the patient's lab results. Lab Results 12/26/23 12:29: WBC 13.8 H, RBC 3.01 L, Hgb 8.6 L, Hct 29.5 L, MCV 98.2, MCH 28.7, MCHC 29.2 L, RDW 18.7 H, Plt Count 242, MPV 8.5, Neut % (Auto) 92.3 H, Lymph % (Auto) 5.4 L, Island % (Auto) 1.8, Eos % (Auto) 0.2, Baso % (Auto) 0.2, Neut # (Auto) 12.7 H, Lymph # (Auto) 0.8, [place] # (Auto) 0.3, Eos # (Auto) 0.0, Baso # (Auto) 0.0, Total Counted 100, Neutrophils % (Manual) 93 H, Lymphocytes % (Manual) 4 L, Monocytes % (Manual) 3, Platelet Estimate Normal, RBC Morphology Normal, Sodium 123 L, Potassium 3.9, Chloride 91 L, Carbon Dioxide 24, Anion Gap 11.9, BUN 49 H, Creatinine 0.70, Estimated Creat Clear 53, Estimated GFR 82, Est GFR ( Amer) 99, Glucose 530 H*, Calcium 8.2 L, Total Bilirubin 1.2, AST 47 H, ALT 44, Alkaline Phosphatase 242 H, C-Reactive Protein 319.9 H, Total Protein 6.1 L, Albumin 2.7 L, Globulin 3.4 H, Albumin/Globulin Ratio 0.8 L 12/26/23 12:32: Lactate 2.9 H, Acetone Level Small 12/26/23 13:16: VBG pH 7.44 H, VBG pCO2 33.5 L, VBG pO2 146.9 H, VBG HCO3 22.0 L, VBG Total CO2 23.0, VBG O2 Saturation 99.5 H, VBG Base Excess -2.2 12/26/23 13:48: VBG Lactic Acid 5.0 H Orders (Tests/Meds): ED MEDICATIONS Generic Name Dose Route Start Last Admin Trade Name Maulik PRN Reason Stop Dose Admin Hydrocodone Bitart/Acetaminophen 1 tab 12/26/23 16:51 Hydrocodone/Apap 5/325 Mg Tablet PO 01/25/24 16:50 Q4HP PRN Mild to Moderate Pain (1-6) Vancomycin/PEG/NADA/Lysine/Water 1.25 gm in 250 mls @ 125 mls/hr 12/26/23 14:00 12/26/23 14:51 Vancomycin 1.25gm/250ml (Peg) Premix IV 01/05/24 13:59 125 mls/hr Q18H RHONDA Administration Piperacillin Sod/Tazobactam 100 mls @ 200 mls/hr 12/26/23 14:00 12/26/23 13:39 Sod 4.5 gm/ Sodium Chloride IV 01/05/24 13:59 200 mls/hr Q6H RHONDA Administration Insulin Human Regular 100 unit 101 mls @ 6.872 mls/hr 12/26/23 15:00 12/26/23 15:43 / Sodium Chloride IV 01/25/24 14:59 0.1 units/kg/hr .[id number] RHONDA 6.87 mls/hr Administration Protocol 0.1 UNITS/KG/HR Clindamycin Phosphate 900 mg in 50 mls @ 100 mls/hr 12/26/23 15:27 Clindamycin 900mg/50ml D5w Premix IV 01/05/24 15:26 Q8H RHONDA Insulin Human Lispro 0 unit 12/26/23 21:00 Humalog 100 Units/Ml 3ml Vial (Ssi) SQ 01/25/24 20:59 ACHS RHONDA Protocol Sodium Chloride 10 ml 12/26/23 13:55 Sodium Chloride 0.9% 10ml Syr (Rad Only) IV 01/25/24 13:54 NEEDED PRN Maintain IV Site Discontinued Medications Generic Name Dose Route Start Last Admin Trade Name Maulik PRN Reason Stop Dose Admin Hydromorphone HCl 0.5 mg 12/26/23 13:02 12/26/23 13:25 Hydromorphone 2mg/Ml Syringe IV 12/26/23 13:03 0.5 mg ONCE ONE Administration Lactated Ringer's 1,000 mls @ 999 mls/hr 12/26/23 12:18 12/26/23 13:38 Lactated Ringer's 1000 Ml Bag IV 12/26/23 13:18 Not Given .Q1H1M ONE Lactated Ringer's 1,850 mls @ 925 mls/hr 12/26/23 13:35 12/26/23 12:45 Lactated Ringer's 1000 Ml Bag 30 ml/kg infuse over 2 hr (1850 ml) 12/26/23 15:34 925 mls/hr IV Administration .Q2H ONE Iopamidol 75 ml 12/26/23 13:55 12/26/23 13:56 Iopamidol-370 (76%);100ml Bottle IV 12/26/23 13:56 75 ml ONCE ONE Administration Ondansetron HCl 4 mg 12/26/23 13:04 12/26/23 13:25 Ondansetron 4mg/2ml Vial IV 12/26/23 13:05 4 mg ONCE ONE Administration ORDERS Category Date Time Status CT abdomen pelvis w con Stat Cat Scan 12/26/23 13:20 Completed Consult to Hospice [CONS] Routine Cons 12/26/23 16:53 Active Acetone, Serum (Rapid) Stat Lab 12/26/23 12:32 Completed CBC w/Auto Diff [Complete Blood Count Auto Diff] Stat Lab 12/26/23 12:29 Completed CMP [Comprehensive Metabolic Panel] Stat Lab 12/26/23 12:29 Completed CRP [C-Reactive Protein] Stat Lab 12/26/23 12:29 Completed Complete Blood Count Auto Diff AMLAB Lab 12/27/23 06:00 Ordered Comprehensive Metabolic Panel AMLAB Lab 12/27/23 06:00 Ordered Lactate Venous Routine Lab 12/26/23 13:48 Completed Lactic Acid Stat Lab 12/26/23 12:32 Completed Magnesium AMLAB Lab 12/27/23 06:00 Ordered Blood Culture Stat Micro 12/26/23 13:34 Received VBG [Venous Blood Gas] Stat RT 12/26/23 13:16 Completed Medical Decision Narrative: In summary patient is a 73-year-old female past medical history described above presents emergency department to transfer patient from clinic for evaluation of rapidly progressing sacral decubitus ulcer. Patient is hemodynamically stable upon arrival, afebrile, tachycardic, normotensive. Differential includes necrotizing soft tissue infection, deep space infection, worsening sacral decubitus ulcer, among others. Workup will be conducted with hematologic labs, CT abdomen pelvis with IV contrast. Initial interventions included sepsis crystalloid resuscitation, broad-spectrum antibiotics, blood cultures to be obtained. Depending on degree of involvement will determine if patient is appropriate for this facility or not. Patient's wishes were discussed at bedside, if she were to need a diverting ostomy for some reason to improve her wound healing or need a debridement in the OR she wishes to proceed. Initial workup reviewed by me, leukocytosis of 13.8, persistent anemia, respiratory alkalosis with superimposed lactic acidosis with small ketones in the blood and hyperglycemia which will be treated with insulin drip, very high CRP, hyponatremia which when corrected is approximately 131. Given possibility of an STI patient will be broadened with clindamycin for [place] effect. CT imaging conducted and pending at time of transition of care to the oncoming physician, Dr. Bowens. Reassessment 4:[address] Bowens I took over for Dr. Ceja. CT scan was performed which I personally interpreted also reviewed radiology read. There are multiple very concerning findings first there is a large cyst or necrotic mass around the right femur that could be a complex fluid collection or abscess versus chronic hematoma versus metastatic disease. In the setting of other findings this is possibly metastatic disease. There is a lung mass that was found in the right base as well as a adrenal mass all concerning for metastatic disease. I went had a prolonged conversation with the patient the patient's over the phone as well as the patient's daughter at the bedside. All are in agreement that they do not want aggressive medical care and that they would like for her to be comfort care only. Apparently at the moment they do not have room for a hospital bed or any type of care at the home and they need some time to make some space for that. They would like for hospice to be contacted and for that process to begin. Will discuss with case management [facility] navigators as well as with Dr. Hebert [facility] medicine physician for further discussion regarding what is best for this patient and the patient's family. Reassessment 5:06 PM I spoke with Dr. Hebert who agreed to admit the patient for further evaluation and management. We did discuss with case management we will be unable to get the patient to hospice care this evening but that should be able to get to this tomorrow. Critical Care <Roland Ceja MD - Last Filed: 12/26/23 16:08> Critical Care Time Critical Care Time: Yes Attestation: On 12/26/23, the high probability of a clinically significant, sudden or life threatening deterioration of the following system(s) required my full and direct attention, intervention and personal management. The time I documented below is in addition to time spent performing reported procedures but includes the following listed in this critical care notation. Total Time Total Critical Care Time: 35
[2023-12-26 12:44] LABS: Basophils % 0.2 % (0.1-2.0); Eosinophils % 0.2 % (0.1-12.0); Hematocrit 29.5 % (37.0-47.0); Hemoglobin 8.6 g/dL (12.2-16.2); Lymphocytes # 0.8 K/mm3 (0.7-4.5); Lymphocytes % 5.4 % (10-50); Mean Corpuscular HGB Conc 29.2 g/dL (31.8-35.4); Mean Corpuscular Hemoglobin 28.7 pg (27.0-31.2); Mean Corpuscular Volume 98.2 fl (81-99); Mean Platelet Volume 8.5 fl (7.4-10.4); Monocytes # 0.3 K/mm3 (0.1-1.0); Monocytes % 1.8 % (1.7-9.3); Neutrophils # 12.7 K/mm3 (1.8-7.8); Neutrophils % 92.3 % (37.0-80.0); Platelet Count 242 K/mm3 (142-424); Red Blood Count 3.01 M/mm3 (4.20-5.40); Red Cell Distribution Width 18.7 % (11.5-17.5); White Blood Count 13.8 K/mm3 (4.8-10.8)
[2023-12-26 12:45] LABS: MANUAL DIFFERENTIAL MANUAL DIFFERENTIAL (MANUAL DIFF)
[2023-12-26] MEDS: LACTATED RINGERS 1000ML 1,850 ML 925 ML IV (12:45)
[2023-12-26 12:50] LABS: Lymphocytes % 4 % (10-50); Monocytes % 3 % (2-9); Neutrophils % 93 % (42-76); Total Cells Counted 100
--- NOTE | 2023-12-26 12:50 | PC.NURSE ---
lab at [facility], drawing second set of bc
[2023-12-26 12:51] LABS: Platelet Estimate Normal; RBC Morphology Normal
[2023-12-26 13:00] LABS: Chloride 91 mmol/L (98-107); Potassium 3.9 mmoL/L (3.5-5.1); Sodium 123 mmol/L (136-145)
[2023-12-26 13:03] LABS: Alanine Aminotransferase 44 U/L (12-78); Albumin Level 2.7 g/dl (3.5-5.0); Albumin/Globulin Ratio 0.8 (1.1-1.8); Alkaline Phosphatase 242 U/L (38-126); Anion Gap 11.9 mEq/L (5-15); Aspartate Amino Transferase 47 U/L (14-36); Bilirubin,Total 1.2 mg/dl (0.2-1.3); Calcium 8.2 mg/dl (8.4-10.2); Carbon Dioxide 24 mmol/L (22.0-30.0); Globulin 3.4 g/dL (1.3-3.2); Total Protein,Serum 6.1 g/dl (6.3-8.2)
[2023-12-26 13:08] LABS: Blood Urea Nitrogen 49 mg/dl (7-17); Creatinine Clearance Estimated 53 mL/min (50-200); Estimated Glomerular Filt Rate 82 ml/min (>60); GFR (African American) 99 ML/MIN (>60)
[2023-12-26 13:11] LABS: C-Reactive Protein 319.9 mg/L (0-4)
[2023-12-26 13:14] LABS: Glucose 530 mg/dl (74-100)
--- NOTE | 2023-12-26 13:15 | PC.NURSE ---
Critical Glucose of 530 called from Slim in lab. Repeated and confirmed.
--- NOTE | 2023-12-26 13:18 | PC.NURSE ---
RT notified of VBG
--- NOTE | 2023-12-26 13:20 | CT_ITS ---
FINAL REPORT CLINICAL HISTORY: severe sacral wound COMPARISON: 03/21/2023 FINDINGS: CT OF THE ABDOMEN AND PELVIS WITH CONTRAST Axial CT images of the abdomen and pelvis were obtained after the administration of IV contrast. Coronal and sagittal reformatted images were also obtained and reviewed. This study was performed with techniques to keep radiation doses as low as reasonably achievable (ALARA). Individualized dose reduction techniques using automated exposure control or adjustment of mA and/or kV according to the patient's size were employed. Abdomen: Partially imaged is presumed right infrahilar adenopathy, measuring 24 mm in diameter. There is a mass in the right lung base, which measures 33 mm in size. The heart is normal in size. The liver has an unremarkable appearance, without evidence of mass or biliary ductal dilatation. The gallbladder has been surgically resected. The spleen is unremarkable. There is a heterogeneous right adrenal mass, measuring 23 mm in size. The pancreas has an unremarkable appearance. The kidneys are normal, without evidence of mass or hydronephrosis. The aorta is normal in caliber. There is no free fluid or adenopathy. No mass or abnormal fluid collection is seen. Pelvis: The appendix is not well-visualized. The urinary bladder is unremarkable. There is a large predominant mass surrounding the implant in the right proximal femur, 14 x 14 cm in size, there is cystic or necrotic. This may represent a metastatic lesion from a primary lung cancer, or other metastases. This could also represent a large chronic hematoma or other complex fluid-filled collection. There is no evidence of bowel obstruction. IMPRESSION: Partially imaged presumed right infrahilar adenopathy as described. There is also a mass in the right lung base and a heterogeneous right adrenal mass. These may all represent metastases from a primary lung cancer, or other metastases. There is also a large predominant cyst or necrotic mass surrounding the proximal femur where a hip arthroplasty implant is located, during 14 x 14 cm. Once again this could represent some type of metastasis or possibly a large chronic hematoma or other complex fluid collection. Reviewed, Interpreted and Dictated by Miguel Claudio III, MD Transcribed by Nikki Velazco Authenticated and [facility]
[2023-12-26] MEDS: ONDANSETRON 4MG/2ML VIAL 4 MG IV (13:25)
[2023-12-26] MEDS: HYDROMORPHONE 2MG/ML SYRINGE 0.5 MG IV (13:25)
--- NOTE | 2023-12-26 13:28 | PC.NURSE ---
Dr. Ceja notified of critical glucose
--- NOTE | 2023-12-26 13:34 | EXP.PHA.CONS ---
Pharmacy Consult Date: 12/26/23 Time: 13:34 Referring provider: DR. MORSE Reason for Consult:: VANCOMYCIN DOSING Allergies Allergy/AdvReac Type Severity Reaction Status Date / Time ciprofloxacin [From Cipro] Allergy Unknown Verified 12/26/23 10:32 allergy reaction latex Allergy Unknown Verified 12/26/23 10:32 allergy reaction morphine Allergy Unknown Verified 12/26/23 10:32 allergy reaction Home Medications Medication Instructions Recorded Confirmed Type allopurinol 100 mg tablet 100 mg PO DAILY Gout 09/23/20 12/26/23 History calcium polycarbophil 625 mg tablet 2 tab PO DAILY Constipation 10/02/21 12/26/23 History clonazepam 0.5 mg tablet (Klonopin) 0.5 mg PO HS Tremor #30 tabs 06/14/23 12/26/23 Rx primidone 250 mg tablet 250 mg PO BID Tremors #60 tabs 06/14/23 12/26/23 Rx amlodipine 5 mg tablet 5 mg PO DAILY High blood pressure 08/26/23 12/26/23 Rx 90 days #90 tabs metformin 850 mg tablet 850 mg PO BID Diabetes 90 days 08/26/23 12/26/23 Rx #180 tabs rosuvastatin 20 mg tablet 20 mg PO DAILY Cholesterol 90 days 08/26/23 12/26/23 Rx #90 tabs venlafaxine 150 mg 150 mg PO DAILY #30 caps 09/12/23 12/26/23 Rx capsule,extended release 24 hr (Effexor XR) gabapentin 100 mg capsule See Rx Instructions .Route 11/01/23 12/26/23 Rx .COMPLEX #120 caps tramadol 50 mg tablet 50 mg PO Q8H PRN hip fracture pain 11/24/23 12/26/23 Rx #30 tabs menthol 0.44 %-zinc oxide 20.6 % 1 applic topical QID PRN wound 11/28/23 12/26/23 Rx topical ointment (Calmoseptine) healing #113 grams pentoxifylline 400 mg 400 mg PO TID 11/28/23 12/26/23 History tablet,extended release warfarin 3 mg tablet 6 mg PO DAILY Blood thinner 11/28/23 12/26/23 History furosemide 20 mg tablet 20 mg PO BID 12/05/23 12/26/23 History omeprazole 20 mg capsule,delayed 20 mg PO BID 12/05/23 12/26/23 History release buspirone 15 mg tablet 15 mg PO TID Anxiety 90 days #270 12/09/23 12/26/23 Rx tabs collagenase clostridium histo. 250 1 applic topical DAILY PRN wound 12/13/23 12/26/23 Rx unit/gram topical ointment (Santyl) care #90 grams nitrofurantoin 100 mg PO BID 10 days #20 caps 12/20/23 12/26/23 Rx monohydrate/macrocrystals 100 mg capsule (Macrobid) New Prescriptions to Start Prescriptions: Height: 1.7 m Weight: 68.039 kg Laboratory Results:: Laboratory Results - last 24 hr 12/26/23 12:29: WBC 13.8 H, RBC 3.01 L, Hgb 8.6 L, Hct 29.5 L, MCV 98.2, MCH 28.7, MCHC 29.2 L, RDW 18.7 H, Plt Count 242, MPV 8.5, Neut % (Auto) 92.3 H, Lymph % (Auto) 5.4 L, [place] % (Auto) 1.8, Eos % (Auto) 0.2, Baso % (Auto) 0.2, Neut # (Auto) 12.7 H, Lymph # (Auto) 0.8, [place] # (Auto) 0.3, Eos # (Auto) 0.0, Baso # (Auto) 0.0, Total Counted 100, Neutrophils % (Manual) 93 H, Lymphocytes % (Manual) 4 L, Monocytes % (Manual) 3, Platelet Estimate Normal, RBC Morphology Normal, Sodium 123 L, Potassium 3.9, Chloride 91 L, Carbon Dioxide 24, Anion Gap 11.9, BUN 49 H, Creatinine 0.70, Estimated Creat Clear 53, Estimated GFR 82, Est GFR ( Amer) 99, Glucose 530 H*, Calcium 8.2 L, Total Bilirubin 1.2, AST 47 H, ALT 44, Alkaline Phosphatase 242 H, C-Reactive Protein 319.9 H, Total Protein 6.1 L, Albumin 2.7 L, Globulin 3.4 H, Albumin/Globulin Ratio 0.8 L Medical History: Medical History (Updated 12/19/23 @ 09:54 by Gwen Miller APRN) History of hip fracture History of DVT (deep vein thrombosis) History of hyperlipidemia History of hypertension History of diabetes mellitus Assessment and Plan Assessment and plan all Dx Assessment and Plan for all problems:: Pharmacokinetic dosing service Objective: Patient: Floor: Age: 73 yo Serum creatinine: 0.70 mg/dL Height: 66.9 Inches Weight (kg): 68 Assessment: IBW (kg): 61.37 Dosing wt(kg): 68 Estimated Creatinine clearance (ml/min): 68.3 CRCL method: Cockcroft and Gault using ibw(default). Drug selected: Vancomycin Loading dose (mg): Vd (liters): 54.4 (factor used: 0.8 L/kg) Mika (hr-1): 0.061 Half life (hrs): 11.36 CLvanco=?? 3.318 L/hr Recommended dose: 1250 mg Interval: 18 hrs Infusion time (hrs): 2.0 Predicted peak (mcg/mL): 32.5 Predicted trough (mcg/mL): 12.25 Total body weight is being used for vancomycin dosing. Recommendations: Give Vancomycin 1250 mg q 18 hrs with an expected Cpeak of 32.5 mcg/ml and an expected Ctrough of 12.25 mcg/ml AUC 0-24 /LYSSA Data: LYSSA 0.5 mcg/mL:?? AUC/LYSSA:? 1004.6 LYSSA 1.0 mcg/mL:?? AUC/LYSSA:? 502.3 --------- LYSSA 1.5 mcg/mL:?? AUC/LYSSA:? 334.9 LYSSA 2.0 mcg/mL:?? AUC/LYSSA:? 251.2 Thank you for the consult, will continue to follow. -HAROLDO BURNS, SKINNYD
[2023-12-26 13:38] LABS: Acetone, Serum (Rapid) Small (None Detect)
[2023-12-26] MEDS: PIPERACILLIN/TAZO 4.5 GM in 0.9 % SODIUM CHLORIDE 100 ML IV (13:39)
[2023-12-26 13:46] LABS: VBG Base Excess -2.2 mmol/L (-2.4-2.3); VBG Oxygen Saturation 99.5 % (50-70); VBG PCO2 33.5 mmol/L (35-51); VBG PH 7.44 mmol/L (7.31-7.41); VBG PO2 146.9 mmol/L (28-40)
--- NOTE | 2023-12-26 13:51 | PC.NURSE ---
pt is gone to ct
--- NOTE | 2023-12-26 13:52 | PC.NURSE ---
CRITICAL LACTATE FROM [facility] 5.02 DR MORSE NOTIFIED
[2023-12-26] MEDS: IOPAMIDOL-370 (76%);100ML BOTTLE 75 ML IV (13:56)
--- NOTE | 2023-12-26 14:00 | PC.NURSE ---
PATIENT RETURNED FROM XRAY
--- NOTE | 2023-12-26 14:06 | PC.NURSE ---
BLANKET GIVEN TO PATIENT.
[2023-12-26] MEDS: VANCOMYCIN/WATER FOR INJ (PEG) 1.25 GM/250 ML PIGGYBACK IV (14:51)
--- NOTE | 2023-12-26 14:53 | PC.NURSE ---
Dr. Ceja at [facility] to update pt/daughter on current POC
[2023-12-26 15:27] LABS: Lactic Acid 2.9 mmol/L (0.7-2.1)
--- NOTE | 2023-12-26 15:35 | PC.NURSE ---
James in pharmacy confirmed with Andrew Guerrero that vanc, rocephin and clindamycin, states that that is correct he is using it for extra coverage, call back and talked with Brendan that this is correct
[2023-12-26] MEDS: INSULIN REGULAR, HUMAN 100 UNIT in 0.9 % SODIUM CHLORIDE 100 ML 6.87000000000000011 UNIT IV (15:43)
--- NOTE | 2023-12-26 15:47 | PC.NURSE ---
Vanc and insulin infusing together. Verified by pharmacy.
--- NOTE | 2023-12-26 16:00 | PC.NURSE ---
called and got daughter something to eat
--- NOTE | 2023-12-26 16:18 | PC.NURSE ---
Dr. Bowens went in and spoke with family regarding pt's goals and plan of care. Case Management called and spoke with Olivia regarding pt's family requesting pt to be hospice.
--- NOTE | 2023-12-26 16:19 | PC.NURSE ---
Addendum entered by Blanka Valencia, EMT 12/26/23 16:19: Dr. Bowens notified Original Note: FSBS: [phone]
--- NOTE | 2023-12-26 16:30 | PC.NURSE ---
Olivia from care management at
--- NOTE | 2023-12-26 16:36 | PC.NURSE ---
Olivia stated she was going to send paperwork to hospice, did not know if they would come tonight or not
--- NOTE | 2023-12-26 16:42 | CARE MANAGER ---
Addendum entered by Yael Mercado 12/28/23 08:00: Patient will discharge home via ambulance today and be admitted [facility]. I have updated Willow nelson/ [facility]. Addendum entered by Yael Mercado 12/27/23 11:15: Willow nelson/ [facility] evaluated this patient and stated the plan is for patient to discharge back home in AM and arrange for DME to be set up at home. I have updated Mina nelson/ EMS that patient will need an ambulance transport in the AM. I will update Willow Bernabe in AM regarding transportation time. Addendum entered by Claudia Zhu RN 12/26/23 16:57: Huma from [facility] contacted me and said someone would be out to see patient in the morning. I explained that the family seemed to anticipate a lengthy stay here which I told them should not be the case and perhaps she could go to the care center while awaiting the house to ready for her. GABRIELE Briggs Original Note: Spoke with patient's daughter and . Patient was sleeping. They all want information to be sent to [facility]. They state they can't take her home tonight because furniture needs to be moved. Sent information to [facility] and called them. GABRIELE Briggs
--- NOTE | 2023-12-26 16:44 | PC.NURSE ---
speaking with about admission for hospice consult.
--- NOTE | 2023-12-26 16:46 | PC.NURSE ---
FSBS: [phone]. Dr. Bowens notified.
--- NOTE | 2023-12-26 17:05 | PC.NURSE ---
called house for bed assignment
--- NOTE | 2023-12-26 17:06 | PC.NURSE ---
Luis at [facility] contacted about compatibility with clindamycin and vancomycin , Time states that they are compatible.
--- NOTE | 2023-12-26 17:13 | P.HP_ITS ---
History of Present Illness *Admission Date: 12/26/23 *Reason for visit:: Weakness, fatigue, wound on backside *History of present illness: Ms. Stacy is a 73-year-old female with multiple comorbidities. Wheelchair- bound at home. Multiple femur fractures over the last year. Presented to the ER as a transfer from her clinic for eval of wound in her sacral region. Family has noticed progression of the wound on her backside over the past week causing significant concern. Patient is essentially bedbound and has had decreased p.o. intake for the past 1 to 2 weeks. Bedbound status for several months. She has been getting weaker per family's report. Denies any vomiting. Does complain of some constipation, necessitating enema for fecal impaction. On eval in the ER, patient noted to have stage IV decubitus wound. Sloughing eschar in place. CT showing severe wound along with multiple lesions throughout abdomen concerning for metastatic cancer. Patient in severe set this with hyperglycemia and concern for possible DKA. ER discussed findings with patient and family. Pat iezoey wants to proceed with comfort measures and they would like to consider hospice eval in the morning. Initiated on broad-spectrum antibiotics with vancomycin, Zosyn, clindamycin and an insulin drip. Medicine consulted for admission and further management pending hospice eval. On evaluation, patient says she just wants to be kept comfortable. Family at bedside includes daughter and granddaughter. Extensive discussion about goals of care. Want to proceed with hospice tomorrow. Would like to continue antibiotics for now. Patient appears comfortable. Chronically ill, laying on her left side. On room air. Tachycardic. [facility] Disclaimer: The information contained in this section may have been updated after the patient was seen, as this information can be updated by other users. Medical History History of hip fracture History of DVT (deep vein thrombosis) History of hyperlipidemia History of hypertension History of diabetes mellitus Surgical History History of appendectomy History of cholecystectomy History of colonoscopy History of total right hip arthroplasty Family History Other Displaced fracture of right femoral neck Social History Smoking Status: Former smoker tobacco type: cigarettes packs per day: 2 second hand exposure: Yes alcohol intake: current substance use type: denies use current occupational status: retired Travel in the last 8 weeks: None household members: spouse and family housing: house current occupational exposures/hazards: No caffeine: Yes Review of Systems Review of Systems Review of systems (narrative): 14 point review of systems performed, pertinent positives and negatives as per [facility] Meds Home Medications and Allergies Home Medications Medication Instructions Recorded Confirmed Type allopurinol 100 mg tablet 100 mg PO DAILY Gout 09/23/20 12/26/23 History calcium polycarbophil 625 mg tablet 2 tab PO DAILY Constipation 10/02/21 12/26/23 History clonazepam 0.5 mg tablet (Klonopin) 0.5 mg PO HS Tremor #30 tabs 06/14/23 12/26/23 Rx primidone 250 mg tablet 250 mg PO BID Tremors #60 tabs 06/14/23 12/26/23 Rx amlodipine 5 mg tablet 5 mg PO DAILY High blood pressure 08/26/23 12/26/23 Rx 90 days #90 tabs metformin 850 mg tablet 850 mg PO BID Diabetes 90 days 08/26/23 12/26/23 Rx #180 tabs rosuvastatin 20 mg tablet 20 mg PO DAILY Cholesterol 90 days 08/26/23 12/26/23 Rx #90 tabs venlafaxine 150 mg 150 mg PO DAILY #30 caps 09/12/23 12/26/23 Rx capsule,extended release 24 hr (Effexor XR) gabapentin 100 mg capsule See Rx Instructions .Route 11/01/23 12/26/23 Rx .COMPLEX #120 caps tramadol 50 mg tablet 50 mg PO Q8H PRN hip fracture pain 11/24/23 12/26/23 Rx #30 tabs menthol 0.44 %-zinc oxide 20.6 % 1 applic topical QID PRN wound 11/28/23 Rx topical ointment (Calmoseptine) healing #113 grams pentoxifylline 400 mg 400 mg PO TID 11/28/23 12/26/23 History tablet,extended release warfarin 3 mg tablet 6 mg PO DAILY Blood thinner 11/28/23 12/26/23 History furosemide 20 mg tablet 20 mg PO BID 12/05/23 12/26/23 History omeprazole 20 mg capsule,delayed 20 mg PO BID 12/05/23 12/26/23 History release buspirone 15 mg tablet 15 mg PO TID Anxiety 90 days #270 12/09/23 12/26/23 Rx tabs collagenase clostridium histo. 250 1 applic topical DAILY PRN wound 12/13/23 12/26/23 Rx unit/gram topical ointment (Santyl) care #90 grams nitrofurantoin 100 mg PO BID 10 days #20 caps 12/20/23 12/26/23 Rx monohydrate/macrocrystals 100 mg capsule (Macrobid) New Prescriptions to Start Prescriptions: Allergies Allergy/AdvReac Type Severity Reaction Status Date / Time ciprofloxacin [From Cipro] Allergy Unknown Verified 12/26/23 10:32 allergy reaction latex Allergy Unknown Verified 12/26/23 10:32 allergy reaction morphine Allergy Unknown Verified 12/26/23 10:32 allergy reaction Exam Data for Last 24 hours Vital signs and Labs for Last 24 Hours: Temp Pulse Resp BP Pulse Ox O2 Del Method 97.5 F L 118 H 17 96/68 L 99 Room Air 12/26/23 11:53 12/26/23 17:01 12/26/23 11:53 12/26/23 17:01 12/26/23 17:01 12/26/23 17:01 Laboratory Results - last 24 hr 12/26/23 12:29: WBC 13.8 H, RBC 3.01 L, Hgb 8.6 L, Hct 29.5 L, MCV 98.2, MCH 28.7, MCHC 29.2 L, RDW 18.7 H, Plt Count 242, MPV 8.5, Neut % (Auto) 92.3 H, Lymph % (Auto) 5.4 L, [place] % (Auto) 1.8, Eos % (Auto) 0.2, Baso % (Auto) 0.2, Neut # (Auto) 12.7 H, Lymph # (Auto) 0.8, [place] # (Auto) 0.3, Eos # (Auto) 0.0, Baso # (Auto) 0.0, Total Counted 100, Neutrophils % (Manual) 93 H, Lymphocytes % (Manual) 4 L, Monocytes % (Manual) 3, Platelet Estimate Normal, RBC Morphology Normal, Sodium 123 L, Potassium 3.9, Chloride 91 L, Carbon Dioxide 24, Anion Gap 11.9, BUN 49 H, Creatinine 0.70, Estimated Creat Clear 53, Estimated GFR 82, Est GFR ( Amer) 99, Glucose 530 H*, Calcium 8.2 L, Total Bilirubin 1.2, AST 47 H, ALT 44, Alkaline Phosphatase 242 H, C-Reactive Protein 319.9 H, Total Protein 6.1 L, Albumin 2.7 L, Globulin 3.4 H, Albumin/Globulin Ratio 0.8 L 12/26/23 12:32: Lactate 2.9 H, Acetone Level Small 12/26/23 13:16: VBG pH 7.44 H, VBG pCO2 33.5 L, VBG pO2 146.9 H, VBG HCO3 22.0 L , VBG Total CO2 23.0, VBG O2 Saturation 99.5 H, VBG Base Excess -2.2 12/26/23 13:48: VBG Lactic Acid 5.0 H I & O for Last 24 hours: Intake & Output 12/23/23 12/24/23 12/25/23 12/26/23 22:59 22:59 23:59 23:59 Weight 68.039 kg Constitutional Constitutional: moderate distress, cachectic, chronically ill appearing, disheveled, cooperative and somnolent *Routine HEENT Exam Head: Present normocephalic Eye: Present EOMI ENT: Present mucous membranes dry Comments: Bitemporal wasting *Routine Neck Exam Neck: Present supple and full ROM *Routine Respiratory Exam Respiratory: Present prolonged expiratory phase; Absent accessory muscle use, rhonchi, stridor or wheezes *Routine Cardiovascular Exam Cardiovascular: Present tachycardia Comments: Regular rhythm *Routine Abdominal Exam Abdominal: Present soft and normoactive bowel sounds; Absent tenderness *Routine Rectal Exam Rectal:: deferred *Routine Genitalia Exam Genitalia:: deferred *Routine Extremities Exam Extremities: Present pulses intact and tenderness (Over right hip); Absent full ROM Comments: Trace edema bilateral lower extremity *Routine Skin Exam Skin: Present warm Comments: Stage IV decubitus wound with sloughing eschar and sacral region, foul smell *Routine Neurological Exam Neurological: Present alert and tremors Comments: Waxing and waning mentation. Assessment and Plan *Assessment and plan (1) Sepsis: Status: Acute Category: Medical Code(s): A41.9 - Sepsis, unspecified organism (2) DKA (diabetic ketoacidosis): Status: Acute Category: Medical Code(s): E11.10 - Type 2 diabetes mellitus with ketoacidosis without coma (3) Lung mass: Status: Acute Category: Medical Code(s): R91.8 - Other nonspecific abnormal finding of lung field (4) Hip mass: Status: Acute Category: Medical Code(s): R22.40 - Localized swelling, mass and lump, unspecified lower limb (5) Adrenal mass: Status: Acute Category: Medical Code(s): E27.8 - Other specified disorders of adrenal gland (6) Weight loss: Status: Acute Category: Medical Code(s): R63.4 - Abnormal weight loss (7) Indwelling Reid catheter present: Status: Acute Category: Medical Code(s): Z97.8 - Presence of other specified devices (8) DM2 (diabetes mellitus, type 2): Status: Chronic Qualifiers: Diabetes mellitus complication status: without complication Diabetes mellitus intermediate card tender insulin use: without fdc use Qualified Code(s): E11.9 - Type 2 diabetes mellitus without complications Category: Medical Code(s): E11.9 - Type 2 diabetes mellitus without complications (9) PAD (peripheral artery disease): Status: Acute Category: Medical Code(s): I73.9 - Peripheral vascular disease, unspecified (10) Sacral ulcer: Status: Acute Category: Medical Code(s): L98.429 - Non-pressure chronic ulcer of back with unspecified severity (11) Soft tissue infection: Status: Acute Category: Medical Code(s): L08.9 - Local infection of the skin and subcutaneous tissue, unspecified (12) Need for comfort care: Status: Acute Category: Medical Plan 73-year-old female who presents to the ER because of worsening pain in her buttocks. Found to be septic with white count of 13.8, source of infection with her decubitus wound. Vitals with tachycardia and hypothermia. Also found to be hyperglycemic with elevated BUN of 49 and hyponatremic at 123. Inflammatory markers fairly elevated at 319 CRP. Discussed case with ER physician, request admission for further treatment and goals of care as patient is interested in transitioning to hospice and getting back home with family. Medicine agreed to admit for hospice consult and further goals of care discussions. Patient ill-appearing. Family at bedside. Discussed goals of care, would like to proceed with hospice consult in the morning. Family would like to continue treatment for now until hospice sees them in the morning but will discuss further tonight may change course pending on patient's preference. She states she just does not want to hurt and wants to be kept comfortable. Understands that without treatment she will . Problems addressed as follows: Sepsis secondary to cellulitis and decubitus wound. Suspected metastatic cancer with hip lesion concerning for metastasis versus abscess. Hyperglycemia secondary to infection versus uncontrolled diabetes - Initiated on vancomycin, Zosyn, clindamycin.Will continue antibiotics overnight. Cultures obtained including blood and urine. -Long-term indwelling Reid catheter in place -Hyperglycemia secondary to infectious response. Initiated on insulin drip out of concern for DKA in the ER, however patient has a normal anion gap. - Will transition to subcu corrections with fingersticks ACHS had sliding scale insulin hypoglycemia, uncontrolled diabetes -Status post sepsis bolus -Blood pressure within appropriate range, lactate elevated In light of goals of care, hospice consult placed. Discussed case with case management. Personally reviewed patient's imaging, has a lung mass, adrenal masses, large necrotic mass or cyst around right hip. Additionally deep tissue wound on sacrum. Family has no desire to pursue surgical intervention or debridement. Patient just wants to be comfortable. Reported allergy to morphine, initiate hydrocodone 5 mg as needed every 6 hours as needed for pain. Will consider IV Dilaudid for severe breakthrough pain. Continue Klonopin 0.5 mg nightly, continue gabapentin 100 mg to TID Continue pantoprazole twice daily as formulary conversion for home regimen Continue Effexor 150 mg daily and BuSpar 15 mg 3 times a day for mood In the setting of sepsis will hold home blood pressure meds. DNR regular diet
[2023-12-26] MEDS: CLINDAMYCIN PHOSPHATE/D5W 900 MG/50 ML PIGGYBACK 100 MG IV (17:17)
--- NOTE | 2023-12-26 17:21 | PC.NURSE ---
FSBS: [phone] Dr. Bowens notified
[2023-12-26 17:50] LABS: Reflex Lactic Add Lactic Reflex
--- NOTE | 2023-12-26 17:50 | PC.NURSE ---
FSBS: [phone] Dr. Bowens notified
--- NOTE | 2023-12-26 17:51 | PC.NURSE ---
Dr. Hebert at BS
--- NOTE | 2023-12-26 18:07 | PC.NURSE ---
pt resting in bed daughter at bs
--- NOTE | 2023-12-26 18:29 | PC.NURSE ---
pt glucose was 412 taken by julia
--- NOTE | 2023-12-26 22:12 | PC.NURSE ---
Pt and pt family is refusing to let us turn her, daughter will let us know when she is ready to turn, states we can wash her up in morning.
--- NOTE | 2023-12-26 22:45 | PC.NURSE ---
Pt and pt family is refusing scheduled medications, MD is aware and okay with this given wishes to keep comfortable.
--- NOTE | 2023-12-27 00:30 | PC.NURSE ---
patient refused to be turned and repositioned, nurse is aware.
[2023-12-27] MEDS: HYDROCODONE/APAP 5/325 MG TABLET 1 TAB PO ×3 (03:49→18:08)
[2023-12-27 04:00] VITALS: BP 101/60; PULSE 122; RESP 18; TEMP 37.3; O2SAT 97; BMI 22.4
--- NOTE | 2023-12-27 05:01 | PC.NURSE ---
Pt is alert to self and situation, pt intermittently confused. Pt did receive a bedbath, muñoz care provided. Oral care provided. Pt turned after bathing. Pt complained of pain one time, treated per mar. Pt now ingesting thickened liquid, is on her third cup. Muñoz draining dark estelle urine. Daughter has remained at the bedside. Call light in reach.
[2023-12-27 06:45] LABS: Alanine Aminotransferase 22 U/L (12-78); Albumin/Globulin Ratio 0.7 (1.1-1.8); Alkaline Phosphatase 174 U/L (38-126); Anion Gap 9.5 mEq/L (5-15); Aspartate Amino Transferase 42 U/L (14-36); Bilirubin,Total 1.1 mg/dl (0.2-1.3); Blood Urea Nitrogen 41 mg/dl (7-17); Calcium 6.9 mg/dl (8.4-10.2); Carbon Dioxide 21 mmol/L (22.0-30.0); Chloride 102 mmol/L (98-107); Creatinine Clearance Estimated 50 mL/min (50-200); Estimated Glomerular Filt Rate 121 ml/min (>60); GFR (African American) 146 ML/MIN (>60); Globulin 2.8 g/dL (1.3-3.2); Glucose 334 mg/dl (74-100); Magnesium 1.5 mg/dl (1.6-2.3); Potassium 3.5 mmoL/L (3.5-5.1); Sodium 129 mmol/L (136-145); Total Protein,Serum 4.8 g/dl (6.3-8.2)
[2023-12-27 06:53] LABS: Basophils % 0.2 % (0.1-2.0); Eosinophils % 0.2 % (0.1-12.0); Hematocrit 23.2 % (37.0-47.0); Lymphocytes # 0.9 K/mm3 (0.7-4.5); Lymphocytes % 7.8 % (10-50); Mean Corpuscular Hemoglobin 28.8 pg (27.0-31.2); Mean Corpuscular Volume 96.3 fl (81-99); Mean Platelet Volume 8.7 fl (7.4-10.4); Monocytes # 0.3 K/mm3 (0.1-1.0); Monocytes % 2.2 % (1.7-9.3); Neutrophils # 10.3 K/mm3 (1.8-7.8); Neutrophils % 89.7 % (37.0-80.0); Platelet Count 191 K/mm3 (142-424); Red Blood Count 2.41 M/mm3 (4.20-5.40); Red Cell Distribution Width 18.8 % (11.5-17.5); White Blood Count 11.4 K/mm3 (4.8-10.8)
[2023-12-27 07:04] LABS: Hemoglobin 6.9 g/dL (12.2-16.2); MANUAL DIFFERENTIAL MANUAL DIFFERENTIAL (MANUAL DIFF)
--- NOTE | 2023-12-27 07:35 | PC.NURSE ---
Daughter refused vitals at this time. Nurse notified
[2023-12-27 07:44] VITALS: BP 116/62; PULSE 116; RESP 16; TEMP 37.3; O2SAT 97
--- NOTE | 2023-12-27 08:46 | PC.NURSE ---
Patient and family refused morning assessment, medications, other than pain medication at this time. Waiting for hospice regional sales representative to come consult. Notified family to please ring out if they need anything.
[2023-12-27 08:55] LABS: Lymphocytes % 7 % (10-50); Monocytes % 2 % (2-9); Neutrophils % 91 % (42-76); RBC Morphology Normal; Total Cells Counted 100
[2023-12-27 08:56] LABS: Platelet Estimate Normal
--- NOTE | 2023-12-27 15:13 | HMH.PHAINT1 ---
Pharmacy Intervention Comments: Verified home medications using external fill history from pharmacy and faxed medication history from PCP office (Gwen Miller)
--- NOTE | 2023-12-27 16:01 | P.PN_ITS ---
Subjective *Date: 12/27/23 *Time: 16:01 Interval history: patient and daughter seen at bedside, patient is lying down comfortably Exam Data for Last 24 hours Vital signs and Labs for Last 24 Hours: Temp Pulse Resp BP Pulse Ox O2 Del Method 99.2 F 116 H 16 116/62 97 Room Air 12/27/23 07:44 12/27/23 07:44 12/27/23 07:44 12/27/23 07:44 12/27/23 07:44 12/27/23 13:00 Laboratory Results - last 24 hr 12/27/23 05:24: WBC 11.4 H, RBC 2.41 L, Hgb 6.9 L, Hct 23.2 L, MCV 96.3, MCH 28.8, MCHC 30.0 L, RDW 18.8 H, Plt Count 191, MPV 8.7, Neut % (Auto) 89.7 H, Lymph % (Auto) 7.8 L, Jay % (Auto) 2.2, Eos % (Auto) 0.2, Baso % (Auto) 0.2, Neut # (Auto) 10.3 H, Lymph # (Auto) 0.9, Jay # (Auto) 0.3, Eos # (Auto) 0.0, Baso # (Auto) 0.0, Total Counted 100, Neutrophils % (Manual) 91 H, Lymphocytes % (Manual) 7 L, Monocytes % (Manual) 2, Platelet Estimate Normal, RBC Morphology Normal, Sodium 129 L, Potassium 3.5, Chloride 102, Carbon Dioxide 21 L, Anion Gap 9.5, BUN 41 H, Creatinine 0.50 L D, Estimated Creat Clear 50, Estimated GFR 121, Est GFR ( Amer) 146 D, Glucose 334 H D, Calcium 6.9 L, Magnesium 1.5 L, Total Bilirubin 1.1, AST 42 H, ALT 22 D, Alkaline Phosphatase 174 H, Total Protein 4.8 L, Albumin 2.0 L D, Globulin 2.8, Albumin/Globulin Ratio 0.7 L I & O for Last 24 hours: Intake & Output 12/24/23 12/25/23 12/26/23 12/27/23 22:59 23:59 23:59 23:59 Intake Total 19.694 / 19.694 0 / 0 Output Total 600 / 600 250 / 250 Balance -580.306 / -580.306 -250 / -250 Weight 68.039 kg 64.728 kg Constitutional Constitutional: thin, cachectic and somnolent *Routine HEENT Exam Head: Present normocephalic Eye: Present EOMI and PERRL *Routine Respiratory Exam Respiratory: Present CTA bilaterally *Routine Cardiovascular Exam Cardiovascular: Present RRR *Routine Abdominal Exam Abdominal: Present soft; Absent tenderness *Routine Extremities Exam Extremities: Absent cyanosis, clubbing or edema *Routine Neurological Exam Neurological: Present alert and moving all extremities Routine Psychiatric Exam Psychiatric: Present normal affect Assessment and Plan *Assessment and plan (1) Sepsis: Status: Acute Category: Medical Code(s): A41.9 - Sepsis, unspecified organism (2) DKA (diabetic ketoacidosis): Status: Acute Category: Medical Code(s): E11.10 - Type 2 diabetes mellitus with ketoacidosis without coma (3) Lung mass: Status: Acute Category: Medical Code(s): R91.8 - Other nonspecific abnormal finding of lung field (4) Hip mass: Status: Acute Category: Medical Code(s): R22.40 - Localized swelling, mass and lump, unspecified lower limb (5) Adrenal mass: Status: Acute Category: Medical Code(s): E27.8 - Other specified disorders of adrenal gland (6) Weight loss: Status: Acute Category: Medical Code(s): R63.4 - Abnormal weight loss (7) Indwelling Reid catheter present: Status: Acute Category: Medical Code(s): Z97.8 - Presence of other specified devices (8) DM2 (diabetes mellitus, type 2): Status: Chronic Qualifiers: Diabetes mellitus complication status: without complication 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 Qualified Code(s): E11.9 - Type 2 diabetes mellitus without complications Category: Medical Code(s): E11.9 - Type 2 diabetes mellitus without complications (9) PAD (peripheral artery disease): Status: Acute Category: Medical Code(s): I73.9 - Peripheral vascular disease, unspecified (10) Sacral ulcer: Status: Acute Category: Medical Code(s): L98.429 - Non-pressure chronic ulcer of back with unspecified severity (11) Soft tissue infection: Status: Acute Category: Medical Code(s): L08.9 - Local infection of the skin and subcutaneous tissue, unspecified (12) Need for comfort care: Status: Acute Category: Medical Plan 73-year-old female who presents to the ER because of worsening pain in her buttocks. Found to be septic with white count of 13.8, source of infection with her decubitus wound. Vitals with tachycardia and hypothermia. Also found to be hyperglycemic with elevated BUN of 49 and hyponatremic at 123. Inflammatory markers fairly elevated at 319 CRP. Discussed case with ER physician, request admission for further treatment and goals of care as patient is interested in transitioning to hospice and getting back home with family. Medicine agreed to admit for hospice consult and further goals of care discussions. Patient ill-appearing. Family at bedside. Discussed goals of care, would like to proceed with hospice consult in the morning. Family would like to continue treatment for now until hospice sees them in the morning but will discuss further tonight may change course pending on patient's preference. She states she just does not want to hurt and wants to be kept comfortable. Understands that without treatment she will . Problems addressed as follows: Sepsis secondary to cellulitis and decubitus wound. Suspected metastatic cancer with hip lesion concerning for metastasis versus abscess. Hyperglycemia secondary to infection versus uncontrolled diabetes Anemia Patient family at bedside, wants comfort care measures only hospice team parminder been consulted patient family also refused blood transfused for low Hb Continue Klonopin 0.5 mg nightly, continue gabapentin 100 mg to TID Continue pantoprazole twice daily as formulary conversion for home regimen Continue Effexor 150 mg daily and BuSpar 15 mg 3 times a day for mood DNR regular diet
--- NOTE | 2023-12-27 19:50 | PC.NURSE ---
Verified with GABRIELE Hutton and GABRIELE Mreedith patient gave verbal consent to give information to Son's employer for excuse of absence while visiting with patient today that was admitted to palliative care.
--- NOTE | 2023-12-27 20:24 | PC.NURSE ---
Patient refused 20:00 assessment and all medications that are due tonight. She stated she would take pain medication PRN. Daughter is at bedside and will remain for the night. Educated [employer]. Daughter verbalized understanding.
[2023-12-28 04:00] VITALS: BMI 22.4
[2023-12-28] MEDS: HYDROCODONE/APAP 5/325 MG TABLET 1 TAB PO ×2 (05:09→08:25)
--- NOTE | 2023-12-28 07:28 | P.DS_ITS ---
General Admission date:: 12/26/23 Discharge date: 12/28/23 HPI HPI HPI: Ms. Stacy is a 73-year-old female with multiple comorbidities. Wheelchair- bound at home. Multiple femur fractures over the last year. Presented to the ER as a transfer from her clinic for eval of wound in her sacral region. Family has noticed progression of the wound on her backside over the past week causing significant concern. Patient is essentially bedbound and has had decreased p.o. intake for the past 1 to 2 weeks. Bedbound status for several months. She has been getting weaker per family's report. Denies any vomiting. Does complain of some constipation, necessitating enema for fecal impaction. On eval in the ER, patient noted to have stage IV decubitus wound. Sloughing eschar in place. CT showing severe wound along with multiple lesions throughout abdomen concerning for metastatic cancer. Patient in severe set this with hyperglycemia and concern for possible DKA. ER discussed findings with patient and family. Patient wants to proceed with comfort measures and they would like to consider hospice eval in the morning. Initiated on broad-spectrum antibiotics with vancomycin, Zosyn, clindamycin and an insulin drip. Medicine consulted for admission and further management pending hospice eval. On evaluation, patient says she just wants to be kept comfortable. Family at bedside includes daughter and granddaughter. Extensive discussion about goals of care. Want to proceed with hospice tomorrow. Would like to continue antibiotics for now. Patient appears comfortable. Chronically ill, laying on her left side. On room air. Tachycardic. Hospital Course Hospital Course Hospital Course: 73-year-old female who presents to the ER because of worsening pain in her buttocks. Found to be septic with white count of 13.8, source of infection with her decubitus wound. Vitals with tachycardia and hypothermia. Also found to be hyperglycemic with elevated BUN of 49 and hyponatremic at 123. Inflammatory markers fairly elevated at 319 CRP. Discussed case with ER physician, request admission for further treatment and goals of care as patient is interested in transitioning to hospice and getting back home with family. Medicine agreed to admit for hospice consult and further goals of care discussions. Patient ill- appearing. Family at bedside. Extensive discussion during admission about goals of care. Elected to proceed with hospice. [facility] evaluated patient on 12/26. Appropriate for their service. Will be admitted at discharge. Ambulance to take patient to home for continued care under [facility]. Critically ill. Patient and family both understand that without treatment of her acute issues, is eminent. No desire to proceed with aggressive measures such as surgery for debridement of her decubitus wound or treatment of her acute problems. Will honor patient and family's wishes. Discharged with hospice. Problems addressed as follows: Sepsis secondary to cellulitis and decubitus wound. Suspected metastatic cancer with hip lesion concerning for metastasis versus abscess. Hyperglycemia secondary to infection versus uncontrolled diabetes Anemia Patient family at bedside, wants comfort care measures only Hospice evaluated. Patient will be admitted when she gets to home today. Will transport via ambulance. Continue treatment with Dilaudid 1 mg every 4 hours as needed, Ativan 1 mg every 4 hours as needed, Phenergan 25 mg every 6 hours as ne eded and Dulcolax suppository as needed daily. Medication sent to [facility] pharmacy in [place]. Total time spent on discharge 32 minutes in counseling, documentation, chart review, and direct care with patient. Exam Data for Last 24 hours Vital signs and Labs for Last 24 Hours: Temp Pulse Resp BP Pulse Ox O2 Del Method 99.2 F 116 H 16 116/62 97 Room Air 12/27/23 07:44 12/27/23 07:44 12/27/23 07:44 12/27/23 07:44 12/27/23 07:44 12/28/23 06:55 Laboratory Results - last 24 hr 12/27/23 05:24: Total Counted 100, Neutrophils % (Manual) 91 H, Lymphocytes % (Manual) 7 L, Monocytes % (Manual) 2, Platelet Estimate Normal, RBC Morphology Normal I & O for Last 24 hours: Intake & Output 12/25/23 12/26/23 12/27/23 12/28/23 23:59 23:59 23:59 23:59 Intake Total 19.694 / 19.694 480 / 480 Output Total 600 / 600 250 / 250 350 / 350 Balance -580.306 / -580.306 230 / 230 -350 / -350 Weight 68.039 kg 64.728 kg 64.728 kg Constitutional Constitutional: moderate distress, chronically ill appearing, cooperative and somnolent *Routine HEENT Exam Head: Present normocephalic ENT: Present mucous membranes dry *Routine Neck Exam Neck: Present supple *Routine Respiratory Exam Respiratory: Present crackles; Absent rhonchi or wheezes *Routine Cardiovascular Exam Cardiovascular: Present tachycardia *Routine Neurological Exam Neurological: Present alert Results Data Completed and Pending Labs on day of discharge: Labs from last 24 hours 12/27/23 05:24 Total Counted 100 Neutrophils % (Manual) 91 H Lymphocytes % (Manual) 7 L Monocytes % (Manual) 2 Platelet Estimate Normal RBC Morphology Normal DS: Diagnosis Discharge Diagnosis (1) Sepsis: Status: Acute Code(s): A41.9 - Sepsis, unspecified organism (2) DKA (diabetic ketoacidosis): Status: Acute Code(s): E11.10 - Type 2 diabetes mellitus with ketoacidosis without coma (3) Lung mass: Status: Acute Code(s): R91.8 - Other nonspecific abnormal finding of lung field (4) Hip mass: Status: Acute Code(s): R22.40 - Localized swelling, mass and lump, unspecified lower limb (5) Adrenal mass: Status: Acute Code(s): E27.8 - Other specified disorders of adrenal gland (6) Weight loss: Status: Acute Code(s): R63.4 - Abnormal weight loss (7) Indwelling Reid catheter present: Status: Acute Code(s): Z97.8 - Presence of other specified devices (8) DM2 (diabetes mellitus, type 2): Status: Chronic Code(s): E11.9 - Type 2 diabetes mellitus without complications Qualifiers: Diabetes mellitus complication status: without complication Diabetes mellitus detention insulin use: without detention use Qualified Code(s): E11.9 - Type 2 diabetes mellitus without complications (9) PAD (peripheral artery disease): Status: Acute Code(s): I73.9 - Peripheral vascular disease, unspecified (10) Sacral ulcer: Status: Acute Code(s): L98.429 - Non-pressure chronic ulcer of back with unspecified severity (11) Soft tissue infection: Status: Acute Code(s): L08.9 - Local infection of the skin and subcutaneous tissue, unspecified (12) Need for comfort care: Status: Acute Meds Home Medications and Allergies Home Medications Medication Instructions Recorded Confirmed Type clonazepam 0.5 mg tablet (Klonopin) 0.5 mg PO HS Tremor #30 tabs 06/14/23 12/27/23 Rx primidone 250 mg tablet 250 mg PO BID Tremors #60 tabs 06/14/23 12/27/23 Rx amlodipine 5 mg tablet 5 mg PO DAILY High blood pressure 08/26/23 12/27/23 Rx 90 days #90 tabs venlafaxine 150 mg 150 mg PO DAILY #30 caps 09/12/23 12/27/23 Rx capsule,extended release 24 hr (Effexor XR) omeprazole 20 mg capsule,delayed 20 mg PO BID 12/05/23 12/27/23 History release buspirone 15 mg tablet 15 mg PO TID Anxiety 90 days #270 12/09/23 12/27/23 Rx tabs gabapentin 100 mg capsule 100 mg PO TID 12/27/23 12/27/23 History bisacodyl 10 mg rectal suppository 10 mg VT DAILY PRN constipation 12/28/23 Rx (Dulcolax (bisacodyl)) #12 ea hydromorphone 2 mg tablet 1 mg (1/2 x 2 mg) PO Q4H PRN pain 12/28/23 Rx (Dilaudid) #10 tabs lorazepam 1 mg tablet (Ativan) 1 mg PO Q4HP PRN anxiety #30 tabs 12/28/23 Rx promethazine 25 mg tablet 25 mg PO Q6H PRN nausea and 12/28/23 Rx vomiting #30 tabs New Prescriptions to Start Prescriptions: bisacodyl [Dulcolax (bisacodyl)] Hema Hebert hydromorphone [Dilaudid] Hema Hebert lorazepam [Ativan] Hema Hebert promethazine Hema Hebert Allergies Allergy/AdvReac Type Severity Reaction Status Date / Time ciprofloxacin [From Cipro] Allergy Unknown Verified 12/26/23 10:32 allergy reaction latex Allergy Unknown Verified 12/26/23 10:32 allergy reaction morphine Allergy Unknown Verified 12/26/23 10:32 allergy reaction Discharge Plan Disposition Patient Disposition: Hospice - Home Condition: Serious Discharge Order Discharge Orders: Discharge Order (Routine); Ordered 12/28/23 Ordered By: Hema Hebert Follow up Plan Prescriptions/Medication Reconciliation: New bisacodyl [Dulcolax (bisacodyl)] 10 mg suppository 10 mg VT DAILY PRN (Reason: constipation) Qty: 12 0RF promethazine 25 mg tablet 25 mg PO Q6H PRN (Reason: nausea and vomiting) Qty: 30 0RF lorazepam [Ativan] 1 mg tablet 1 mg PO Q4HP PRN (Reason: anxiety) Qty: 30 0RF hydromorphone [Dilaudid] 2 mg tablet 1 mg PO Q4H PRN (Reason: pain) Qty: 10 0RF Continued clonazepam [Klonopin] 0.5 mg tablet 0.5 mg PO HS Qty: 30 5RF Rx Instructions: administer 30 minutes before bedtime primidone 250 mg tablet 250 mg PO BID Qty: 60 11RF amlodipine 5 mg tablet 5 mg PO DAILY 90 Days Qty: 90 1RF venlafaxine [Effexor XR] 150 mg capsule,extended release 24hr 150 mg PO DAILY Qty: 30 2RF buspirone 15 mg tablet 15 mg PO TID 90 Days Qty: 270 1RF omeprazole 20 mg capsule,delayed release(DR/EC) 20 mg PO BID gabapentin 100 mg capsule 100 mg PO TID Patient Comments: TAKE ONE CAPSULE BY MOUTH IN THE MORNING, TAKE ONE CAPSULE AT NOON, AND TAKE TWO CAPSULES AT BEDTIME Rx Instructions: Take 1 capsule by mouth in the morning, one capsule at noon, and take two capsules (200mg) at bedtime. Discontinued tramadol 50 mg tablet 50 mg PO Q8H PRN (Reason: hip fracture pain) Qty: 30 0RF allopurinol 100 mg tablet 100 mg PO DAILY warfarin 3 mg tablet 6 mg PO DAILY rosuvastatin 20 mg tablet 20 mg PO DAILY 90 Days Qty: 90 1RF metformin 850 mg tablet 850 mg PO BID 90 Days Qty: 180 0RF Rx Instructions: Take with food pentoxifylline 400 mg tablet extended release 400 mg PO TID menthol-zinc oxide [Calmoseptine] 0.44-20.6 % ointment 1 applic topical QID PRN (Reason: wound healing) Qty: 113 3RF Santyl 250 unit/gram ointment 1 applic topical DAILY PRN (Reason: wound care) Qty: 90 0RF nitrofurantoin monohyd/m-cryst [Macrobid] 100 mg capsule 100 mg PO BID 10 Days Qty: 20 0RF Rx Instructions: must administer with a meal/food calcium polycarbophil 625 MG tablet 2 tab PO DAILY furosemide 20 mg Tablet 20 mg PO BID Problem Reconciliation Problems Reviewed?: Yes Patient Discharge Instructions ACTIVITY: Bed rest DIET: continue same diet Providers Primary Care Provider: Gwen Miller Admit Provider: Hema Hebert Attending Provider: Hema Hebert
== END 2023-12-28 08:36 | disposition hospice, home (50) ==
LOC: ER 16:12 → ICU 18:22
PROVIDERS: Admitting Provider Internal Medicine Adolescent Medicine; Emergency Provider Emergency Medicine; PCP Nurse Practitioner Family; Visit Provider Internal Medicine Adolescent Medicine
DX: A41.9 Sepsis, unspecified organism (principal); E11.10 Type 2 diabetes mellitus with ketoacidosis without coma; E11.51 Type 2 diabetes mellitus with diabetic peripheral angiopathy without gangrene; R22.40 Localized swelling, mass and lump, unspecified lower limb; E27.8 Other specified disorders of adrenal gland; R63.4 Abnormal weight loss; Z97.8 Presence of other specified devices; Z51.5 Encounter for palliative care; I73.9 Peripheral vascular disease, unspecified; L98.429 Non-pressure chronic ulcer of back with unspecified severity; L08.9 Local infection of the skin and subcutaneous tissue, unspecified; D64.9 Anemia, unspecified; Z99.3 Dependence on wheelchair
CPT/HCPCS: 36415; 74177; 80053; 82009; 82728; 82803; 83605; 83735; 85007; 85014; 85018; 85025; 86140; 86850; 87040; 99291; G0378; J2405; J2543; Q9967

== ENCOUNTER 2023-12-26 15:00 | Outpatient (CLI) | payer MEDICARE, SELFPAY ==
[2023-12-26 19:24] LABS: Ferritin 212 ng/ml (11.1-264)
== END 2023-12-26 23:59 ==
LOC: LAB.DROPOF 15:00
PROVIDERS: PCP Nurse Practitioner Family; Visit Provider Nurse Practitioner Family
DX: D50.9 Iron deficiency anemia, unspecified (principal)
CPT/HCPCS: 82728